=== PATIENT | female | born 1940 | race Caucasian/White ===

== ENCOUNTER 2023-04-16 14:19 | Emergency (ER) | payer MEDICARE, BC, SELFPAY ==
[2023-04-16] VITALS (11 sets, daily range): BP systolic 131–177; BP diastolic 82–93; PULSE 69–78; RESP 20; TEMP 36.7; O2SAT 94–98; BMI 33.3
--- NOTE | 2023-04-16 16:12 | ED_ITS ---
HPI - General Adult General Time Seen by Provider: 16:13 Date Seen: 04/16/23 Chief complaint: Chest Pain Stated complaint: Chest discomfort Time Seen by Provider: 04/16/23 16:04 History of Present Illness HPI narrative: This is a very pleasant 82-year-old female with a past medical history of hypertension, history of melanoma, history of basal cell carcinoma, distant history of breast cancer, who presents to the ER today with concern for chest pain. She has actually been having chest pain and mild shortness of breath that is per been present off and on for a couple of months, probably since late January. She had seen her primary care provider at [facility] on February 28. They ordered an outpatient stress test and an outpatient echo. Echo was finally done last week on April 13. TTE 04/13/23 Final Impressions: 1. Technically limited exam. 2. Normal LV size, normal wall thickness, normal global systolic function with an estimated EF of 65 - 70%. 3. Right ventricular cavity size is normal, global systolic RV function is normal. She is scheduled to have a Lexiscan stress test on Sunday, 2 days from now. She notes that she has the chest pains off and on. It is only a mild discomfort in she does not know if it is severe enough to worry about. It comes and goes. No clear pattern. It is not related to any exertion, activity, position, food intake, stress, or any other clear trigger. It happens once every couple of days. She had an episode last night that began roughly 7:00 p.m. and lasted until she took a Xanax and went to bed at 10:00 p.m.. She called the clinic this morning to find out whether not she should still follow through with her stress test and they told her to come to the ER because she was having chest pain. She says the pain is not really worse, longer, more frequent, or changing lately. She is not sure if she needs to investigate it further or not. She does have some occasional palpitations. Sometimes they occur during the chest pain. She did have some palpitations last night. No other symptoms. No nausea. No back pain. The pain did not radiate to her jaw or down her arm. No swelling in her legs. No fever or cough. She does have some mild shortness of breath. Related Data Home Medications Medication Instructions Recorded Confirmed alprazolam 0.25 mg tablet 0.25 mg PO BID PRN 04/16/23 04/16/23 benazepril 40 mg tablet 40 mg PO DAILY 04/16/23 04/16/23 fluticasone propionate 50 1 spray intranasal DAILY 04/16/23 04/16/23 mcg/actuation nasal spray,suspension glimepiride 1 mg tablet 1 mg PO DAILY 04/16/23 04/16/23 metformin 500 mg tablet,extended 1,000 mg PO BID 04/16/23 04/16/23 release 24 hr nitroglycerin 0.4 mg sublingual mg sublingual 04/16/23 tablet omeprazole 40 mg capsule,delayed 40 mg PO BID 04/16/23 04/16/23 release primidone 50 mg tablet mg PO 04/16/23 propranolol 10 mg tablet 10 - 20 mg PO PRN 04/16/23 04/16/23 rosuvastatin 40 mg tablet 40 mg PO QPM 04/16/23 04/16/23 Allergies Allergy/AdvReac Type Severity Reaction Status Date / Time Sulfa (Sulfonamide Allergy Verified 04/16/23 14:36 Antibiotics) [facility] Social History Non-prescribed substance use: denies use Exam Narrative: Exam Narrative: Constitutional: Appears well-developed and well-nourished. Alert. Conversant. Non toxic. HENT: Head: Atraumatic. Nose: Nose normal. Mouth/Throat: Oral mucosa is clear and moist. no trismus. Pharynx normal. Tonsils symmetric. No tonsillar enlargement, erythema, or exudate. Eyes: Conjunctivae normal. EOM normal. Pupils equal, round, and reactive to light. No scleral icterus. Neck: Normal range of motion. Neck supple. No tracheal deviation present. No JVD Cardiovascular: Normal rate, regular rhythm. No gallop. No friction rub. No murmur heard. Symmetric radial and PT artery pulses Pulmonary/Chest: Effort normal. No stridor. No respiratory distress. No wheezes. No rales. No rhonchi . No tenderness. Abdominal: Soft. Bowel sounds normal. No distension. No mass. No tenderness. No rebound. No guarding. Musculoskeletal: RUE: Normal range of motion. No tenderness. No deformity LUE: Normal range of motion. No tenderness. No deformity RLE: Normal range of motion. No edema. No tenderness. No deformity LLE: Normal range of motion. No edema. No tenderness. No deformity Neurological: Alert and oriented to person, place, and time. Normal strength. CN II-VII intact. No sensory deficit. GCS eye subscore is 4. GCS verbal subscore is 5. GCS motor subscore is 6. Normal coordination Skin: Skin is warm and dry. No rash noted. No pallor. Normal capillary refill. Psychiatric: Normal mood. Normal affect. Const: Vital Signs, click to edit/add: Vital Signs - 24 hr 04/16/23 14:38 04/16/23 16:51 04/16/23 16:52 Temperature 98.1 F Pulse Rate 72 77 Pulse Rate [Right Pulse Oximeter] 69 Respiratory Rate 20 Blood Pressure 131/84 Blood Pressure [Ri ght Upper Arm] 136/82 Pulse Oximetry 94 96 96 04/16/23 17:00 04/16/23 17:15 Temperature Pulse Rate 73 78 Pulse Rate [Right Pulse Oximeter] Respiratory Rate Blood Pressure Blood Pressure [Ri ght Upper Arm] Pulse Oximetry 98 98 Course Vital Signs Vital signs: Initial Vital Signs Temperature 98.1 F 04/16/23 14:38 Temperature Source Temporal Artery Scan 04/16/23 14:38 Pulse Rate 69 04/16/23 14:38 Respiratory Rate 20 04/16/23 14:38 Blood Pressure 136/82 04/16/23 14:38 Blood Pressure Mean 100 04/16/23 14:38 Blood Pressure Position Sitting 04/16/23 14:38 Pulse Oximetry 94 04/16/23 14:38 Vital Signs Temperature 98.1 F 04/16/23 14:38 Pulse Rate 69 04/16/23 14:38 Respiratory Rate 20 04/16/23 14:38 Blood Pressure 136/82 04/16/23 14:38 Pulse Oximetry 94 04/16/23 14:38 Temperature 98.1 F 04/16/23 14:38 Pulse Rate 78 04/16/23 17:15 Respiratory Rate 20 04/16/23 14:38 Blood Pressure 131/84 04/16/23 16:51 Pulse Oximetry 98 04/16/23 17:15 Medical Decision Making MDM Narrative Medical decision making narrative: This patient presents to the ER today for evaluation of chest pain off and on for a couple months. Differential was broad. No evidence of palpitations, syncope or other cardiac dysrhythmia. We considered possible ACS, however workup with EKG and troponin is negative. Given time since onset of symptoms, I do not think the patient needs to be admitted for further sets of enzymes. She is scheduled to have an outpatient stress test 2 days from now. I do think it is important for her to get that stress test done to look for possible unstable angina. However given history of intermittent chest pain for months, not worsening in frequency or severity or duration lately, I do not think she has active unstable angina requiring heparin or hospitalization. Troponin is negative. Will start the patient on baby aspirin once per day until after she has normal stress test results. She should doctor primary care about whether not she should be on long-term low-dose aspirin. EKG shows no evidence for pericarditis. Clinical presentation not suggestive of myocarditis. The patient has no ripping or tearing pain through to the back and has symmetric pulses on exam, no other acute neuro findings so I doubt aortic dissection. Risk of radiation and contrast exposure would outweigh the benefit of CT angiogram. We considered PE for this patient. d dimer is normal. No wheezing or bronchospasm to suggest COPD/asthma. No peripheral edema, pulmonary edema on exam, orthopnea or other clear evidence for CHF. Recent echo indicated structurally normal heart and normal EF. No signs of chest wall cellulitis, shingles, injury. With reasonable clinical confidence, I think the patient is safe for outpatient follow up. Discussed return precautions. Questions answered. Patient voices comfort with the plan. Lab Data Labs: Lab Results 04/16/23 Range/Units 16:46 WBC 3.99 L (4.50-11.00) K/uL RBC 3.79 L (4.00-5.20) m/uL Hgb 11.9 L (12.0-16.0) gm/dL Hct 36.7 (33.0-51.0) % MCV 97 (80-100) fL MCH 31 (26-34) pg MCHC 32 (32-36) gm/dL RDW Coeff of Aimee 12.6 (11.5-15.5) % Plt Count 217 (140-440) K/uL Neut % (Auto) 51.1 (42.0-72.0) % Lymph % (Auto) 34.1 (20-44) % [place] % (Auto) 11.5 H (0.0-11.0) % Eos % (Auto) 2.5 (0.0-7.0) % Baso % (Auto) 0.8 (0.0-3.0) % Neut # (Auto) 2.00 (1.7-7.0) K/uL Lymph # (Auto) 1.40 (0.90-2.90) K/uL [place] # (Auto) 0.50 (0.00-0.90) K/UL Eos # (Auto) 0.10 (0.00-0.50) K/uL Baso # (Auto) 0.00 (0.00-0.30) K/uL Abs Immat Gran (auto) 0.00 (0.00-0.30) K/uL Imm/Tot Granulo (auto) 0.0 % D-Dimer Quant (PE/DVT) 0.47 (0.00-0.50) ug/ml Sodium 140 (135-149) mmol/L Potassium 4.2 (3.6-5.1) mmol/L Chloride 103 (96-114) mmol/L Carbon Dioxide 26 (20-32) mmol/L Anion Gap 11 (7-15) mEq/L BUN 13 (7-30) mg/dL Creatinine 1.2 (0.5-1.5) mg/dL Estimated Creat Clear 33.65 Estimated GFR 46 ml/min Glucose 126 H (60-115) mg/dL Calcium 9.0 (8.4-10.6) mg/dL Troponin I < 0.01 L (0.01-0.04) ng/mL ECG Data Attestation: I personally reviewed and interpreted this ECG as follows: Interpretation: Normal sinus rhythm . Rate 78 PA the 0.16 QRS axis normal axis. No pathologic Q-waves. ST segment/T wave: No ST segment elevation or depression. QTc: 433 EKG 2 Normal sinus rhythm, with 1 Pac. Rate 81. PA 160 QRS axis normal axis ST segment/T wave: No ST segment elevation or depression QTc: 448 Discharge Plan Discharge Clinical Impression: Palpitation, Atrial contractions, premature, Chest pain Patient Disposition: Home, Self-Care Condition: Stable Instructions: Chest Pain (DC) Additional Instructions: As we discussed, it is safe for you to follow-up for your stress test on Sunday. However if you have worsening pain, worsening trouble breathing, or any worsening symptoms, please come back to the ER right away to be rechecked. Please start taking baby aspirin (81 mg) once per day until you have normal stress test results. Talk to your regular doctor about whether not to ED to be on long-term baby aspirin. If you continue to have palpitations, talk with your doctor and have them arrange an at-home heart monitor to look for possible arrhythmias. On your EKG today, we can see that you did have 1 extra heartbeat called a ?premature atrial contraction?. This PAC is not a dangerous rhythm . It does not require any treatment. Prescriptions: No Action primidone 50 mg tablet PO omeprazole 40 mg capsule,delayed release(DR/EC) 40 mg PO BID glimepiride 1 mg tablet 1 mg PO DAILY propranolol 10 mg tablet 10 - 20 mg PO PRN alprazolam 0.25 mg tablet 0.25 mg PO BID PRN nitroglycerin 0.4 mg tablet, sublingual sublingual benazepril 40 mg tablet 40 mg PO DAILY fluticasone propionate 50 mcg/actuation spray,suspension 1 spray INTRANASAL DAILY metformin 500 mg tablet extended release 24 hr 1,000 mg PO BID rosuvastatin 40 mg tablet 40 mg PO QPM Follow Up/Referrals: Deb Harris PA-C [Primary Care Provider] - Stand Alone Forms: [employer] Info Instructions
[2023-04-16] MEDS: ASPIRIN 81 MG TAB.CHEW 162 MG PO (16:45)
[2023-04-16] MEDS: NITROGLYCERIN 0.4 MG TAB.SUBL SUBLINGUAL (16:45)
[2023-04-16 16:52] LABS: Basophils Percent Auto 0.8 % (0.0-3.0); Eosinophils Percent Auto 2.5 % (0.0-7.0); Hematocrit 36.7 % (33.0-51.0); Hemoglobin* 11.9 gm/dL (12.0-16.0); Lymphocytes Percent Auto 34.1 % (20-44); Mean Corpuscular HGB Conc 32 gm/dL (32-36); Mean Corpuscular Hemoglobin 31 pg (26-34); Mean Corpuscular Volume 97 fL (80-100); Monocytes Percent Auto 11.5 % (0.0-11.0); Neutrophils Percent Auto 51.1 % (42.0-72.0); Platelet Count* 217 K/uL (140-440); RDW Coefficient of Variation % 12.6 % (11.5-15.5); Red Blood Count 3.79 m/uL (4.00-5.20); White Blood Count* 3.99 K/uL (4.50-11.00)
[2023-04-16 16:53] LABS: Slide Review Reflex No
[2023-04-16 17:05] LABS: Chloride* 103 mmol/L (96-114); Potassium* 4.2 mmol/L (3.6-5.1); Sodium* 140 mmol/L (135-149)
[2023-04-16 17:07] LABS: Creatinine* 1.2 mg/dL (0.5-1.5); Est. Creatinine Clearance* 33.65; Estimated Glomerular Filt Rate 46 ml/min
[2023-04-16 17:08] LABS: Anion Gap 11 mEq/L (7-15); Blood Urea Nitrogen* 13 mg/dL (7-30); Carbon Dioxide* 26 mmol/L (20-32); D Dimer Quantitative* 0.47 ug/ml (0.00-0.50); Glucose* 126 mg/dL (60-115)
[2023-04-16 17:20] LABS: Troponin I* < 0.01 ng/mL (0.01-0.04)
== END 2023-04-16 18:44 | disposition home or self-care (01) ==
PROVIDERS: Emergency Provider Emergency Medicine; PCP Physician Assistant Medical
DX: R07.9 Chest pain, unspecified (principal); R00.2 Palpitations; I49.1 Atrial premature depolarization
CPT/HCPCS: 36415; 80048; 84484; 85025; 85379; 93005; 99284; A9270

== ENCOUNTER 2023-06-08 16:17 | Outpatient (CLI) | payer MEDICARE, BC, SELFPAY | END 2023-06-08 16:18 | disposition home or self-care (01) | LOC: NFLDREF 06-11 07:33 | PROVIDERS: PCP Physician Assistant Medical; Referring Provider Physician Assistant Medical; Visit Provider Physician Assistant | DX: R30.0 Dysuria (principal); N39.0 Urinary tract infection, site not specified | CPT/HCPCS: 87086 ==

== ENCOUNTER 2024-06-14 16:11 | Emergency (ER) | payer MEDICARE, BC, SELFPAY ==
[2024-06-14 16:23] VITALS: BP 174/73; PULSE 81; RESP 20; TEMP 36.1; O2SAT 97; BMI 34.3
--- NOTE | 2024-06-14 16:35 | CRLHL7_ITS ---
For Patients: As a result of the Cures Act, medical imaging exams and procedure reports are released immediately into your electronic medical record. You may view this report before your referring provider. If you have questions, please contact your health care provider. INDICATION: Low back pain. TECHNIQUE: Lumbar spine 3 view. COMPARISON: None. FINDINGS: Bones: Alignment is normal. No displaced fractures or significant bone lesions. Joints: Multilevel degenerative disc disease and facet arthropathy. Soft tissues: Unremarkable. Dictated by Emerson Lopez MD @ 06/14/2024 5:18:51 PM (Electronically Signed)
--- NOTE | 2024-06-14 16:36 | ED.BACK ---
HPI - Back Pain/Injury General Chief Complaint: Back Injury/Pain Stated Complaint: Lower back pain Time Seen by Provider: 06/14/24 16:29 History of Present Illness HPI Narrative: Patient is 83-year-old woman who has had 1 week of low back pain. She has not had any recent injuries. She was seen in urgent care this week placed on Flexeril plus prednisone and her symptoms have persisted. She has a history of low back pain that resolved on its own with physical therapy. Physical therapy has been set up. She has not had any imaging during this event. She has no bowel or bladder symptoms no fevers no chills no weakness. Related Data Home Medications ?Medication ?Instructions ?Recorded ?Confirmed alprazolam 0.25 mg tablet 0.25 mg PO BID PRN 04/16/23 06/14/24 benazepril 40 mg tablet 40 mg PO DAILY 04/16/23 06/14/24 fluticasone propionate 50 1 spray intranasal DAILY 04/16/23 06/08/23 mcg/actuation nasal spray,suspension glimepiride 1 mg tablet 1 mg PO DAILY 04/16/23 06/14/24 metformin 500 mg tablet,extended 1,000 mg PO BID 04/16/23 06/14/24 release 24 hr omeprazole 40 mg capsule,delayed 40 mg PO BID 04/16/23 06/14/24 release primidone 50 mg tablet mg PO 04/16/23 06/08/23 propranolol 10 mg tablet 10 - 20 mg PO PRN 04/16/23 06/14/24 rosuvastatin 40 mg tablet 40 mg PO QPM 04/16/23 06/14/24 nitroglycerin 0.4 mg sublingual mg sublingual PRN 06/08/23 06/08/23 tablet Allergies Allergy/AdvReac Type Severity Reaction Status Date / Time Sulfa (Sulfonamide Allergy Verified 06/14/24 16:29 Antibiotics) Review of Systems Status of ROS: Reports: 10 or more systems reviewed and unremarkable except as noted in History and below [facility] Social History Non-prescribed substance use: denies use Exam Narrative: Exam Narrative: EXAM GENERAL: Patient appears comfortable and well. EYES: No scleral icterus. LYMPH: No supraclavicular or cervical lymphadenopathy. SKIN: Visible skin seen during exam normal or with benign process only. EXT: No dependent lower extremity pedal edema. HEART: Regular rate and rhythm with no murmurs, rubs, or gallops. LUNGS: Clear to auscultation bilaterally with no crackles or wheezes. ABD: Soft, non tender, non distended. PSYCH: Good eye contact, speech is not pressured. Musculoskeletal: Normal range of motion of the lumbar spine no other palpable abnormalities. Const: Vital Signs, click to edit/add: Vital Signs - 24 hr 06/14/24 16:23 Temperature 97 F L Pulse Rate [Pulse Oximeter] 81 Respiratory Rate 20 [facility] 174/73 H Pulse Oximetry 97 Oxygen Delivery Me thod Room Air Course Course ED Course: Patient seen and examined. 30 mg of IM Toradol given x-ray of the lumbar spine pending. Vital Signs Vital signs: Initial Vital Signs Temperature 97 F L 06/14/24 16:23 Temperature Source Temporal Artery Scan 06/14/24 16:23 Pulse Rate 81 06/14/24 16:23 Pulse Rhythm Regular 06/14/24 16:23 Respiratory Rate 20 06/14/24 16:23 Blood Pressure 174/73 H 06/14/24 16:23 Blood Pressure Mean 106 H 06/14/24 16:23 Pulse Oximetry 97 06/14/24 16:23 Oxygen Delivery Method Room Air 06/14/24 16:23 Vital Signs Temperature 97 F L 06/14/24 16:23 Pulse Rate 81 06/14/24 16:23 Respiratory Rate 20 06/14/24 16:23 Blood Pressure 174/73 H 06/14/24 16:23 Pulse Oximetry 97 06/14/24 16:23 Oxygen Delivery Method Room Air 06/14/24 16:23 Temperature 97 F L 06/14/24 16:23 Pulse Rate 81 06/14/24 16:23 Respiratory Rate 20 06/14/24 16:23 Blood Pressure 174/73 H 06/14/24 16:23 Pulse Oximetry 97 06/14/24 16:23 Oxygen Delivery Method Room Air 06/14/24 16:23 Medications Administered Medications: Generic Name Dose Route Start Last Admin Trade Name Freq PRN Reason Stop Dose Admin Ketorolac Tromethamine 30 mg 06/14/24 17:03 06/14/24 17:12 Ketorolac 30 Mg/Ml Inj IM 06/14/24 17:04 Not Given ONCE ONE Discontinued Medications Generic Name Dose Route Start Last Admin Trade Name Reinaldo PRN Reason Stop Dose Admin Ketorolac Tromethamine 30 mg 06/14/24 16:56 06/14/24 17:02 Ketorolac 30 Mg/Ml Inj IM 06/14/24 16:57 30 mg ONCE ONE Administration MDM - Back Pain/Injury MDM Narrative Medical decision making narrative: Patient presents with low back pain which is been treated as an outpatient with prednisone and Flexeril. Patient does not like the Flexeril and would like something different for pain. X-ray series is unremarkable. I did give her 30 mg of IM Toradol. I at this time after careful exam and review of her imaging have elected to treat her with Vicodin 1-2 every 4-6 as needed in addition to the remainder of her steroid course. She does have outpatient physical therapy schedule. Will continue symptomatic treatment as well with follow-up with primary care as needed. Discharge Plan Discharge Clinical Impression: Low back pain Patient Disposition: Home, Self-Care Condition: Stable Instructions: Acute Low Back Pain (ED) Additional Instructions: STOP Flexeril Start Vicodin as directed Tylenol Motrin Rest Ice Physical therapy as arranged Follow-up with your doctor as needed. Activity Level: No Restrictions Discharge Diet: Regular Prescriptions: No Action primidone 50 mg tablet PO omeprazole 40 mg capsule,delayed release(DR/EC) 40 mg PO BID glimepiride 1 mg tablet 1 mg PO DAILY propranolol 10 mg tablet 10 - 20 mg PO PRN alprazolam 0.25 mg tablet 0.25 mg PO BID PRN benazepril 40 mg tablet 40 mg PO DAILY fluticasone propionate 50 mcg/actuation spray,suspension 1 spray INTRANASAL DAILY metformin 500 mg tablet extended release 24 hr 1,000 mg PO BID rosuvastatin 40 mg tablet 40 mg PO QPM nitroglycerin 0.4 mg tablet, sublingual sublingual PRN Follow Up/Referrals: Deb Harris PA-C [Primary Care Provider] - Stand Alone Forms: [facility] Info Instructions
[2024-06-14] MEDS: KETOROLAC 30 MG/ML inj IM (17:02)
[2024-06-14 17:40] VITALS: BP 154/82; PULSE 75; RESP 20; O2SAT 99
--- NOTE | 2024-06-14 17:49 | ED.NURSE ---
Pt D/C. neighbor to give her ride home. Verbal acknowledgment of instructions. Insta med script given to pt
== END 2024-06-14 17:41 | disposition home or self-care (01) ==
PROVIDERS: Emergency Provider Internal Medicine; PCP Physician Assistant Medical
DX: M54.50 Low back pain, unspecified (principal)
CPT/HCPCS: 72100; 96372; 99283; J1885

== ENCOUNTER 2024-06-16 08:39 | Observation (INO) | payer MEDICARE, BC, SELFPAY ==
[2024-06-16 08:52] VITALS: BP 133/118; PULSE 93; RESP 18; TEMP 36.1; O2SAT 99; BMI 34.3
--- NOTE | 2024-06-16 09:24 | ED.BACK ---
HPI - Back Pain/Injury General Time Seen by Provider: : Date Seen: 06/16/24 Chief Complaint: Back Injury/Pain Stated Complaint: hip/back pain Time Seen by Provider: 06/16/24 09:24 Source: patient and family Mode of arrival: wheelchair Limitations: no limitations History of Present Illness HPI Narrative: Joan is an 83-year-old female with a history of hypertension, history of melanoma, history of basal cell carcinoma, distant history of breast cancer, who presents to the ER today with increasing and ongoing back pain. Patient notes the onset of right sided low back pain with radiation into the right hip and to the leg on SundayJune 11. She notes a similar instance of this pain last spring which responded very well to physical therapy. She is normally a very active person. Unfortunately she has had increasing pain and was seen at the [facility] on June 12 at which time she was put on Flexeril and prednisone. She notes increasing pain and came into the emergency room on SundayJune 14 at which time x-rays of her back showed arthritic changes. She was discontinued off of Flexeril, given a dose of Toradol which seemed to help and started on Dalton 5/325. Patient notes that she had been taking Dalton 2 tablets every 4 hours but has run out of the tablets now. She notes that throughout the night she was on the computer trying to get into her primary Deb [facility] at the [facility] and even tried to talk to the triage nurse and had no luck trying to be seen. Thus, she comes to the emergency room. She has not had any bowel or bladder control issues. The pain starts in her low back, radiates to the hip and down the lateral aspect of the thigh stopping at the knee. Related Data Home Medications ?Medication ?Instructions ?Recorded ?Confirmed alprazolam 0.25 mg tablet 0.25 mg PO BID PRN 04/16/23 06/16/24 benazepril 40 mg tablet 40 mg PO DAILY 04/16/23 06/16/24 fluticasone propionate 50 1 spray intranasal DAILY 04/16/23 06/16/24 mcg/actuation nasal spray,suspension glimepiride 1 mg tablet 1 mg PO DAILY 04/16/23 06/16/24 metformin 500 mg tablet,extended 1,000 mg PO BID 04/16/23 06/16/24 release 24 hr omeprazole 40 mg capsule,delayed 40 mg PO BID 04/16/23 06/16/24 release primidone 50 mg tablet 100 mg PO TID 04/16/23 06/16/24 propranolol 10 mg tablet 10 - 20 mg PO PRN 04/16/23 06/16/24 rosuvastatin 40 mg tablet 40 mg PO HS 04/16/23 06/16/24 nitroglycerin 0.4 mg sublingual 0.4 mg sublingual Q5M PRN 06/08/23 06/16/24 tablet cyanocobalamin (vitamin B-12) 1,000 mcg IM Q28D 06/16/24 06/16/24 1,000 mcg/mL injection solution (Dodex) propranolol 160 mg capsule,24 160 mg PO DAILY 06/16/24 06/16/24 hr,extended release Allergies Allergy/AdvReac Type Severity Reaction Status Date / Time Sulfa (Sulfonamide Allergy Verified 06/16/24 09:03 Antibiotics) Review of Systems Status of ROS: Reports: 10 or more systems reviewed and unremarkable except as noted in History and below Const: Denies: fever or chills ENMT: Denies: neck pain Cardio: Denies: chest pain or shortness of breath with exertion Resp: Denies: shortness of breath or cough GI: Denies: abdominal pain or vomiting Musculo: Denies: neck pain Neuro: Reports: weakness in extremities PFSH PFSH Social History What is your current living situation?: I presently have a place to live Problems where you live: no known problems Problems where you live details: N/A In the past 12 months, utilities in danger of being shut off: no In the past 12 mos, have been you worried that your food would run out before you had money to buy more?: never true In the past 12 mos, the food you bought just didn't last and you didn't have money to buy more?: never true Highest level of school completed/degree received: Associate degree: occupational, technical, vocational program Smoking Status: Former smoker Do you use any of these nicotine containing products: None How often do you have a drink containing alcohol: monthly or less How often do you have six or more drinks on one occasion: Never AUDIT-C Alcohol total score: 1 Non-prescribed substance use: denies use How often does anyone, including family, friends and others, physically hurt you: never How often does anyone, including family, friends and others, insult or talk down to you: never How often does anyone, including family, friends and others, threaten you with harm: never How often does anyone, including family, friends and others, scream or curse at you: never service: No Exam Narrative: Exam Narrative: Patient initially seen by myself with mild distress, alert and oriented. Breathing without difficulty. She needs to use the restroom and so I return later. Unfortunately she has marked increased pain and muscular spasm in her low back. She is clear in significant distress. I do order medications 8 mg of IM morphine and this seems to help significantly. I then return for further exam. Alert and oriented. No acute distress. Heart with regular rate and rhythm and lungs are clear. Abdomen soft. Over no pain with palpation over right thigh. No unusual lower extremity edema. Patient now has full flexion and extension at the ankles and great toes. Sensation is intact. Subjective altered sensation at the knee. Const: Vital Signs, click to edit/add: Vital Signs - 24 hr 06/16/24 08:52 06/16/24 11:05 Temperature 96.9 F L Pulse Rate [Pulse Oximeter] 93 64 Respiratory Rate 18 18 Blood Pressure [Le ft Upper Arm] 133/118 H 191/94 H Pulse Oximetry 99 96 Oxygen Delivery Me thod Room Air Room Air Documenting provider has reviewed patient's vital signs: yes Course Course ED Course: Differential diagnosis includes but is not limited to compression fracture, disc protrusion with radiculopathy, musculoskeletal discomfort, I was called back into the room is patient had gone to the bathroom and when she returned she was screaming in pain. She was quite shaky as well. She did not yet have an IV in place and thus we gave her morphine 8 mg IM with her consent. This helped quite a bit. An IV was placed and she was given Zofran 4 mg IV. Blood was taken for a CBC, comprehensive panel, CRP. Ordered urinalysis as well as an MRI of her lumbar spine which I am told should be done shortly after noon. Reevaluation(s) Reevaluation #1: Patient noted to do very well after IM morphine. Currently awaiting results. White count is normal. Reevaluation #2: Attempted ambulation with patient and walker in she has quite a bit of increased discomfort. Consultations Consultation #1: I consulted with Dr. Salvador, sports broadcaster. He will schedule Joan for injection at the L2, L3 for areas on the right. No further steroids at this time. Vital Signs Vital signs: Initial Vital Signs Temperature 96.9 F L 06/16/24 08:52 Temperature Source Temporal Artery Scan 06/16/24 08:52 Pulse Rate 93 06/16/24 08:52 Respiratory Rate 18 06/16/24 08:52 Blood Pressure 133/118 H 06/16/24 08:52 Blood Pressure Mean 123 H 06/16/24 08:52 Blood Pressure Position Supine 06/16/24 08:52 Pulse Oximetry 99 06/16/24 08:52 Oxygen Delivery Method Room Air 06/16/24 08:52 Vital Signs Temperature 96.9 F L 06/16/24 08:52 Pulse Rate 93 06/16/24 08:52 Respiratory Rate 18 06/16/24 08:52 Blood Pressure 133/118 H 06/16/24 08:52 Pulse Oximetry 99 06/16/24 08:52 Oxygen Delivery Method Room Air 06/16/24 08:52 Temperature 97.8 F 06/16/24 16:58 Pulse Rate 69 06/16/24 16:58 Respiratory Rate 16 06/16/24 16:58 Blood Pressure 177/82 H 06/16/24 16:58 Pulse Oximetry 94 06/16/24 16:58 Oxygen Delivery Method Room Air 06/16/24 16:58 Medications Administered Medications: Generic Name Dose Route Start Last Admin Trade Name Reinaldo PRN Reason Stop Dose Admin Acetaminophen 1,000 mg 06/16/24 17:00 06/16/24 17:26 Acetaminophen 500 Mg Tablet PO 1,000 mg Q8H CARA Administration Gabapentin 200 mg 06/16/24 18:00 06/16/24 17:33 Gabapentin 100 Mg Capsule PO 200 mg Q8H CARA Administration Insulin Aspart 0 unit 06/16/24 18:00 06/16/24 17:28 Insulin Aspart 100 Unit/Ml SUBCUT Not Given TIDWM CARA Protocol Primidone 100 mg 06/16/24 18:00 06/16/24 17:46 Primidone 50 Mg Tablet PO 100 mg Q8H CARA Administration Discontinued Medications Generic Name Dose Route Start Last Admin Trade Name Reinaldo PRN Reason Stop Dose Admin Morphine Sulfate 8 mg 06/16/24 09:57 06/16/24 10:15 Morphine 10 Mg/Ml Inj IM 06/16/24 09:58 8 mg ONCE ONE Administration Ondansetron HCl 4 mg 06/16/24 09:57 06/16/24 10:20 Ondansetron 2 Mg/Ml Inj IVP 06/16/24 09:58 4 mg ONCE ONE Administration MDM - Back Pain/Injury MDM Narrative Medical decision making narrative: 1. Lumbar radiculitis-L3 nerve appears to have irritation based on MRI. Patient much improved with morphine but still having difficulty ambulating. Will admit patient to our hospital for pain control. Plan is to have an injection tomorrow with agricultural consultant Dr. Salvador at 1330 hours. Based on his advice no further steroids needed at this time. Not currently on blood thinners. 2. Hyperglycemia-likely consequence of pain as well as steroid use. Blood sugar 297. 3. Hypertension-likely consequence of pain. Will continue to monitor 4. Disposition-admission to the floor at this time under the care of Dr. Lofton Medical Records Attestation: I reviewed the patient's medical records. Lab Data Attestation: I reviewed the patient's lab results. Labs: Lab Results 06/16/24 Range/Units 10:09 WBC 8.82 (4.50-11.00) K/uL RBC 4.15 (4.00-5.20) m/uL Hgb 13.1 (12.0-16.0) gm/dL Hct 39.0 (33.0-51.0) % MCV 94 (80-100) fL MCH 32 (26-34) pg MCHC 34 (32-36) gm/dL RDW Coeff of Aimee 13.1 (11.5-15.5) % Plt Count 246 (140-440) K/uL Neut % (Auto) 73.0 H (42.0-72.0) % Lymph % (Auto) 20.4 (20-44) % Beaver % (Auto) 5.4 (0.0-11.0) % Eos % (Auto) 0.7 (0.0-7.0) % Baso % (Auto) 0.3 (0.0-3.0) % Neut # (Auto) 6.40 (1.7-7.0) K/uL Lymph # (Auto) 1.80 (0.90-2.90) K/uL Beaver # (Auto) 0.50 (0.00-0.90) K/UL Eos # (Auto) 0.06 (0.00-0.50) K/uL Baso # (Auto) 0.03 (0.00-0.30) K/uL Abs Immat Gran (auto) 0.02 (0.00-0.30) K/uL Imm/Tot Granulo (auto) 0.2 % Sodium 134 L (135-149) mmol/L Potassium 4.2 (3.6-5.1) mmol/L Chloride 99 (96-114) mmol/L Carbon Dioxide 21 (20-32) mmol/L Anion Gap 14 (7-15) mEq/L BUN 20 (7-30) mg/dL Creatinine 1.0 (0.5-1.5) mg/dL Estimated Creat Clear 38.10 Estimated GFR 57 ml/min Glucose 297 H (60-115) mg/dL Calcium 9.8 (8.4-10.6) mg/dL Total Bilirubin 0.6 (0.1-1.5) mg/dL AST 20 (12-35) U/L ALT 20 (4-35) U/L Alkaline Phosphatase 86 (40-150) U/L C-Reactive Protein 0.5 (0.5-1.0) mg/dL Total Protein 7.5 (6.0-8.3) g/dL Albumin 4.6 (3.3-5.0) g/dL Imaging Data MRI lumbar spine: Attestation: I have reviewed the pertinent imaging results. Radiologist's impression: There are 5 lumbar type vertebral segments identified. The vertebral body heights are maintained without evidence of fracture. There is no discrete T1 hypointense marrow infiltrating process. The conus medullaris terminates at L1-2, normal. T12-L1: Disc degeneration with moderate posterior endplate fatty marrow change (Modic type 2). Minimal disc bulge without spinal canal or neural foraminal narrowing. Mild facet arthropathy. L1-2: Disc degeneration, with moderate apposing endplate combination fatty and edematous marrow change (combination of Modic type 1 and type 2). Disc bulge results in mild spinal canal narrowing. Left foraminal disc protrusion combined with facet arthropathy resulting in mild to moderate left neural foraminal narrowing. Mild right neural foraminal narrowing. Moderate facet arthropathy. L2-3: Disc degeneration, with mild opposing endplate fatty marrow change (Modic type 2). Disc bulge with superimposed right subarticular disc protrusion. There is mild overall spinal canal with moderate right lateral recess narrowing. Encroachment upon the descending right L3 nerves. Moderate right and mild left neural foraminal narrowing. L3-4: Disc degeneration. Disc bulge combined with facet arthropathy results in moderate spinal canal narrowing. [id number] neural foraminal narrowing. Moderate facet arthropathy. L4-5: Grade 1 anterolisthesis. Uncovering the disc combined with facet arthropathy resulting in mild to moderate overall spinal canal narrowing with moderate right lateral recess narrowing. Encroachment upon the descending right L5 nerves. Moderate right and mild left neural foraminal narrowing. Severe facet arthropathy. L5-S1: Disc degeneration with minimal spinal canal narrowing. Mild neural foraminal narrowing. Severe facet arthropathy. Mild sacroiliac joint osteoarthritis. Impression: 1. At L2-3, right subarticular disc protrusion resulting in moderate lateral recess narrowing encroaching upon the descending right L3 nerves. 2. At L3-4, moderate spinal canal stenosis. 3. At L4-5, mild to moderate spinal canal with moderate right lateral recess narrowing. Encroachment upon the descending right L5 nerves. 4. Moderate to severe multilevel facet arthropathy. Hip x-ray: Attestation: I have reviewed the pertinent imaging results. My impression: No obvious fracture Radiologist's impression: No evident acute displaced fracture. Mild degenerative change of the hips. Moderate degenerative changes of the sacroiliac joints. Mild degenerative change of the pubic symphysis. Partially imaged degenerative change of the lumbosacral spine. Lumbosacral transitional anatomy. IMPRESSION: 1. No evident acute displaced fracture. 2. Mild degenerative change of the hips. Discharge Plan Discharge Clinical Impression: Lumbar radiculitis Patient Disposition: Admitted As Observation Condition: Improved
--- NOTE | 2024-06-16 09:57 | CRLHL7_ITS ---
For Patients: As a result of the Century Cures Act, medical imaging exams and procedure reports are released immediately into your electronic medical record. You may view this report before your referring provider. If you have questions, please contact your health care provider. Indication: Back pain. Technique: Multiplanar, multisequence MRI of the lumbar spine was performed without intravenous contrast. Comparison: Lumbar spine radiographs 06/14/2024. Findings: There are 5 lumbar type vertebral segments identified. The vertebral body heights are maintained without evidence of fracture. There is no discrete T1 hypointense marrow infiltrating process. The conus medullaris terminates at L1-2, normal. T12-L1: Disc degeneration with moderate posterior endplate fatty marrow change (Modic type 2). Minimal disc bulge without spinal canal or neural foraminal narrowing. Mild facet arthropathy. L1-2: Disc degeneration, with moderate apposing endplate combination fatty and edematous marrow change (combination of Modic type 1 and type 2). Disc bulge results in mild spinal canal narrowing. Left foraminal disc protrusion combined with facet arthropathy resulting in mild to moderate left neural foraminal narrowing. Mild right neural foraminal narrowing. Moderate facet arthropathy. L2-3: Disc degeneration, with mild opposing endplate fatty marrow change (Modic type 2). Disc bulge with superimposed right subarticular disc protrusion. There is mild overall spinal canal with moderate right lateral recess narrowing. Encroachment upon the descending right L3 nerves. Moderate right and mild left neural foraminal narrowing. L3-4: Disc degeneration. Disc bulge combined with facet arthropathy results in moderate spinal canal narrowing. [id number] neural foraminal narrowing. Moderate facet arthropathy. L4-5: Grade 1 anterolisthesis. Uncovering the disc combined with facet arthropathy resulting in mild to moderate overall spinal canal narrowing with moderate right lateral recess narrowing. Encroachment upon the descending right L5 nerves. Moderate right and mild left neural foraminal narrowing. Severe facet arthropathy. L5-S1: Disc degeneration with minimal spinal canal narrowing. Mild neural foraminal narrowing. Severe facet arthropathy. Mild sacroiliac joint osteoarthritis. Impression: 1. At L2-3, right subarticular disc protrusion resulting in moderate lateral recess narrowing encroaching upon the descending right L3 nerves. 2. At L3-4, moderate spinal canal stenosis. 3. At L4-5, mild to moderate spinal canal with moderate right lateral recess narrowing. Encroachment upon the descending right L5 nerves. 4. Moderate to severe multilevel facet arthropathy. Dictated by Arnoldo Smith MD @ 06/16/2024 1:04:29 PM (Electronically Signed)
[2024-06-16] MEDS: MORPHINE 10 MG/ML inj 8 MG IM (10:15)
[2024-06-16 10:17] LABS: Basophils Absolute Auto 0.03 K/uL (0.00-0.30); Basophils Percent Auto 0.3 % (0.0-3.0); Eosinophils Absolute Auto 0.06 K/uL (0.00-0.50); Eosinophils Percent Auto 0.7 % (0.0-7.0); Hemoglobin* 13.1 gm/dL (12.0-16.0); Immature Granulocytes Abs Auto 0.02 K/uL (0.00-0.30); Immature Granulocytes Pct Auto 0.2 %; Lymphocytes Percent Auto 20.4 % (20-44); Mean Corpuscular HGB Conc 34 gm/dL (32-36); Mean Corpuscular Hemoglobin 32 pg (26-34); Mean Corpuscular Volume 94 fL (80-100); Monocytes Percent Auto 5.4 % (0.0-11.0); Platelet Count* 246 K/uL (140-440); RDW Coefficient of Variation % 13.1 % (11.5-15.5); Red Blood Count 4.15 m/uL (4.00-5.20); White Blood Count* 8.82 K/uL (4.50-11.00)
[2024-06-16] MEDS: ONDANSETRON 2 MG/ML inj 4 MG IVP (10:20)
[2024-06-16 10:27] LABS: Slide Review Reflex No
[2024-06-16 10:37] LABS: Albumin* 4.6 g/dL (3.3-5.0); Chloride* 99 mmol/L (96-114); Sodium* 134 mmol/L (135-149)
[2024-06-16 10:38] LABS: Potassium* 4.2 mmol/L (3.6-5.1)
[2024-06-16 10:40] LABS: Bilirubin Total* 0.6 mg/dL (0.1-1.5); Estimated Glomerular Filt Rate 57 ml/min
[2024-06-16 10:41] LABS: Alanine Aminotransferase* 20 U/L (4-35); Alkaline Phosphatase* 86 U/L (40-150); Anion Gap 14 mEq/L (7-15); Aspartate Amino Transferase* 20 U/L (12-35); Blood Urea Nitrogen* 20 mg/dL (7-30); Calcium* 9.8 mg/dL (8.4-10.6); Carbon Dioxide* 21 mmol/L (20-32); Glucose* 297 mg/dL (60-115); Total Protein* 7.5 g/dL (6.0-8.3)
[2024-06-16 10:43] LABS: C Reactive Protein* 0.5 mg/dL (0.5-1.0)
[2024-06-16 11:05] VITALS: BP 191/94; PULSE 64; RESP 18; O2SAT 96
--- NOTE | 2024-06-16 13:25 | CRLHL7_ITS ---
For Patients: As a result of the Century Cures Act, medical imaging exams and procedure reports are released immediately into your electronic medical record. You may view this report before your referring provider. If you have questions, please contact your health care provider. INDICATION: Right hip pain COMPARISON: None. TECHNIQUE: Single view of the pelvis and two views of the right hip FINDINGS: No evident acute displaced fracture. Mild degenerative change of the hips. Moderate degenerative changes of the sacroiliac joints. Mild degenerative change of the pubic symphysis. Partially imaged degenerative change of the lumbosacral spine. Lumbosacral transitional anatomy. IMPRESSION: 1. No evident acute displaced fracture. 2. Mild degenerative change of the hips. Dictated by Kalpesh Dykes MD @ 06/16/2024 2:19:20 PM (Electronically Signed)
--- NOTE | 2024-06-16 15:25 | ED.NURSE ---
Pt report given to taryn MOHAN.
--- NOTE | 2024-06-16 16:00 | P.IMHP_ITS ---
Hospitalist- H&P: HPI History of Present Illness Date Seen: 06/16/24 Chief complaint: hip/back pain Narrative: Joan Peters is a 83 year old female with a history of DM, hypertension, hld, history of melanoma, history of basal cell carcinoma, distant history of breast cancer, who presents to the ER today with worsening back pain with radiation into the right hip and to the knee started 4-5 days ago. Pain is worse by change of positions ( Walking, standing, and sleeping (rolling over in bed), getting in and out of the car are all very painful). It is improved by sitting still. She has tried home exercises, support belt, ice belt, Aleve, muscle relaxer, prednisone for the pain with no improvement in her symptoms. It is not associated w/ bowel or bladder incontinence or w/ neurologic symptoms including saddle paresthesias. There has not been fevers and chills. Patient mentioned that she has chronic urinary incontinence, that has not got worse recently. MRI lumbar spine: At L2-3, right subarticular disc protrusion resulting in moderate lateral recess narrowing encroaching upon the descending right L3 nerves. At L3-4, moderate spinal canal stenosis. At L4-5, mild to moderate spinal canal with moderate right lateral recess narrowing. Encroachment upon the descending right L5 nerves. Moderate to severe multilevel facet arthropathy. Review of Systems Status of ROS: Reports: 6 or more systems reviewed and unremarkable except as noted in History and below [facility] Social History What is your current living situation?: I presently have a place to live Problems where you live: no known problems Problems where you live details: N/A In the past 12 months, utilities in danger of being shut off: no In the past 12 mos, have been you worried that your food would run out before you had money to buy more?: never true In the past 12 mos, the food you bought just didn't last and you didn't have money to buy more?: never true Highest level of school completed/degree received: Associate degree: occupational, technical, vocational program Smoking Status: Former smoker Do you use any of these nicotine containing products: None How often do you have a drink containing alcohol: monthly or less How often do you have six or more drinks on one occasion: Never AUDIT-C Alcohol total score: 1 Non-prescribed substance use: denies use How often does anyone, including family, friends and others, physically hurt you : never How often does anyone, including family, friends and others, insult or talk down to you: never How often does anyone, including family, friends and others, threaten you with harm: never How often does anyone, including family, friends and others, scream or curse at you: never service: No Meds Home Medications and Allergies Home Medications ?Medication ?Instructions ?Recorded ?Confirmed ?Type alprazolam 0.25 mg tablet 0.25 mg PO BID PRN 04/16/23 06/16/24 History benazepril 40 mg tablet 40 mg PO DAILY 04/16/23 06/16/24 History fluticasone propionate 50 1 spray intranasal DAILY 04/16/23 06/16/24 History mcg/actuation nasal spray,suspension glimepiride 1 mg tablet 1 mg PO DAILY 04/16/23 06/16/24 History metformin 500 mg tablet,extended 1,000 mg PO BID 04/16/23 06/16/24 History release 24 hr omeprazole 40 mg capsule,delayed 40 mg PO BID 04/16/23 06/16/24 History release primidone 50 mg tablet 100 mg PO TID 04/16/23 06/16/24 History propranolol 10 mg tablet 10 - 20 mg PO PRN 04/16/23 06/16/24 History rosuvastatin 40 mg tablet 40 mg PO HS 04/16/23 06/16/24 History nitroglycerin 0.4 mg sublingual 0.4 mg sublingual Q5M PRN 06/08/23 06/16/24 History tablet cyanocobalamin (vitamin B-12) 1,000 mcg IM Q28D 06/16/24 06/16/24 History 1,000 mcg/mL injection solution (Dodex) propranolol 160 mg capsule,24 160 mg PO DAILY 06/16/24 06/16/24 History hr,extended release Allergies Allergy/AdvReac Type Severity Reaction Status Date / Time Sulfa (Sulfonamide Allergy Verified 06/16/24 09:03 Antibiotics) Exam Narrative: Exam Narrative: Physical exam GENERAL: Comfortable, no acute distress. HEAD AND NECK: Atraumatic, normocephalic CARDIOVASCULAR: RRR. Normal S1, S2. No murmurs. RESPIRATORY: Clear to auscultation B/L. Good air entry B/L. No wheezes or rhonchi. GASTROINTESTINAL: Not tender to palpation. NEUROLOGY: Alert, awake, oriented X 3. Normal speech. MSK: No tenderness on palpating her spine. PSYCH: Normal mood, normal affect. Const: Vital Signs, click to edit/add: Vital Signs - 24 hr 06/16/24 08:52 06/16/24 11:05 Temperature 96.9 F L Pulse Rate [Pulse Oximeter] 93 64 Respiratory Rate 18 18 Blood Pressure [Le ft Upper Arm] 133/118 H 191/94 H Pulse Oximetry 99 96 Oxygen Delivery Me thod Room Air Room Air Hospitalist - H&P: Result Labs Labs: Short CBC 06/16/24 Range/Units 10:09 WBC 8.82 (4.50-11.00) K/uL Hgb 13.1 (12.0-16.0) gm/dL Hct 39.0 (33.0-51.0) % Plt Count 246 (140-440) K/uL BMP 06/16/24 10:09 Sodium 134 L Potassium 4.2 Chloride 99 Carbon Dioxide 21 BUN 20 Creatinine 1.0 Glucose 297 H Calcium 9.8 Liver Function 06/16/24 Range/Units 10:09 Total Bilirubin 0.6 (0.1-1.5) mg/dL AST 20 (12-35) U/L ALT 20 (4-35) U/L Alkaline Phosphatase 86 (40-150) U/L Albumin 4.6 (3.3-5.0) g/dL Imaging MR - Other: Radiologist's impression: Indication: Back pain. Technique: Multiplanar, multisequence MRI of the lumbar spine was performed without intravenous contrast. Comparison: Lumbar spine radiographs 06/14/2024. Findings: There are 5 lumbar type vertebral segments identified. The vertebral body heights are maintained without evidence of fracture. There is no discrete T1 hypointense marrow infiltrating process. The conus medullaris terminates at L1-2, normal. T12-L1: Disc degeneration with moderate posterior endplate fatty marrow change (Modic type 2). Minimal disc bulge without spinal canal or neural foraminal narrowing. Mild facet arthropathy. L1-2: Disc degeneration, with moderate apposing endplate combination fatty and edematous marrow change (combination of Modic type 1 and type 2). Disc bulge results in mild spinal canal narrowing. Left foraminal disc protrusion combined with facet arthropathy resulting in mild to moderate left neural foraminal narrowing. Mild right neural foraminal narrowing. Moderate facet arthropathy. L2-3: Disc degeneration, with mild opposing endplate fatty marrow change (Modic type 2). Disc bulge with superimposed right subarticular disc protrusion. There is mild overall spinal canal with moderate right lateral recess narrowing. Encroachment upon the descending right L3 nerves. Moderate right and mild left neural foraminal narrowing. L3-4: Disc degeneration. Disc bulge combined with facet arthropathy results in moderate spinal canal narrowing. [id number]-[id number] neural foraminal narrowing. Moderate facet arthropathy. L4-5: Grade 1 anterolisthesis. Uncovering the disc combined with facet arthropathy resulting in mild to moderate overall spinal canal narrowing with moderate right lateral recess narrowing. Encroachment upon the descending right L5 nerves. Moderate right and mild left neural foraminal narrowing. Severe facet arthropathy. L5-S1: Disc degeneration with minimal spinal canal narrowing. Mild neural foraminal narrowing. Severe facet arthropathy. Mild sacroiliac joint osteoarthritis. Impression: 1. At L2-3, right subarticular disc protrusion resulting in moderate lateral recess narrowing encroaching upon the descending right L3 nerves. 2. At L3-4, moderate spinal canal stenosis. 3. At L4-5, mild to moderate spinal canal with moderate right lateral recess narrowing. Encroachment upon the descending right L5 nerves. 4. Moderate to severe multilevel facet arthropathy. Dictated by Arnoldo Smith MD @ 06/16/2024 1:04:29 PM Assessment and Plan Assessment and plan (1) Lumbar radiculopathy: Problem comment: -MRI spine: At L2-3, right subarticular disc protrusion resulting in moderate lateral recess narrowing encroaching upon the descending right L3 nerves. At L3- 4, moderate spinal canal stenosis. At L4-5, mild to moderate spinal canal with moderate right lateral recess narrowing. Encroachment upon the descending right L5 nerves. Moderate to severe multilevel facet arthropathy. -ordered scheduled gabapentin and acetaminophen. In addition to morphine p.r.n. -sports medicine doctor to perform spinal injection tomorrow around 1:30 pm amanda 06/17. Status: Acute (2) History of breast cancer in female: Problem comment: -distant history of breast cancer that was treated with lumpectomy and radiation. -MRI of the lumbar spine today did not show any lesion involving the bone. Status: Acute (3) Diabetes: Problem comment: -started insulin sliding scale , low-dose -on metformin and glimepiride at home Status: Acute (4) HTN (hypertension): Problem comment: Resume home meds Status: Acute (5) HLD (hyperlipidemia): Problem comment: Resume statin Status: Acute Plan As above Total Time Spent Total Time Spent: Time spent: Today I spent 75 minutes seeing the patient, discussing the patient with ER staff, reviewing Expanse and EPIC notes/diagnostics, discussing the care plan with our care time that includes social work, PT/OT, pharmacy, RT, group home and documenting my impressions and plan in the medical record.
[2024-06-16 16:58] VITALS: BP 177/82; PULSE 69; RESP 16; RESP 18; TEMP 36.6; O2SAT 94; O2SAT 98; BMI 32.9
[2024-06-16] MEDS: ACETAMINOPHEN 500 MG TABLET 1000 MG PO (17:26)
[2024-06-16] MEDS: GABAPENTIN 100 MG CAPSULE 200 MG PO (17:33)
[2024-06-16] MEDS: PRIMIDONE 50 MG TABLET 100 MG PO (17:46)
[2024-06-16 19:00] VITALS: BP 142/69; PULSE 71; PULSE 98; RESP 16; TEMP 36.6; O2SAT 98
[2024-06-16] MEDS: ROSUVASTATIN CALCIUM 10 MG TABLET 40 MG PO (21:06)
[2024-06-16] MEDS: ENOXAPARIN 40 MG/0.4 ML INJ SUBCUT (21:06)
[2024-06-16] MEDS: OMEPRAZOLE 20 MG CAPSULE DR 40 MG PO (21:06)
[2024-06-16] MEDS: MORPHINE 2 MG/ML inj IVP (21:10)
[2024-06-16] MEDS: SODIUM CHLORIDE 0.9 % (FLUSH) 10 ML SYRINGE 5 ML IVF (21:10)
[2024-06-16 23:20] VITALS: BP 145/71; PULSE 90; RESP 16; TEMP 36.5; O2SAT 94
--- NOTE | 2024-06-16 23:26 | PC.NURSE ---
Shift Note: Pt friendly and cooperative. A/O and able to verbalize her needs. VSS, although Bp's slightly hypertensive. She rates pain to her low back and right hip/leg 6/10. One dose of morphine given at HS for pain management. Moves well with SBA.
[2024-06-17] MEDS: ACETAMINOPHEN 500 MG TABLET 1000 MG PO (01:24)
[2024-06-17 01:26] VITALS: BP 136/66; PULSE 75; RESP 16; TEMP 36.6; O2SAT 90
[2024-06-17] MEDS: GABAPENTIN 100 MG CAPSULE 200 MG PO ×3 (01:29→17:16)
[2024-06-17] MEDS: PRIMIDONE 50 MG TABLET 100 MG PO ×3 (01:29→21:49)
[2024-06-17] MEDS: MORPHINE 2 MG/ML inj IVP (02:09)
--- NOTE | 2024-06-17 06:32 | PC.NURSE ---
Pt is alert and oriented x3. Afebrile. Pt reports 3-7/10 pain in left leg, pain managed with scheduled and PRN medications. Pt is up SBA to bathroom, voiding, tolerating a regular diet. Pt slept throughout most of night.
[2024-06-17 09:01] VITALS: BP 134/68; PULSE 74; RESP 16; RESP 18; TEMP 36.8; O2SAT 93
[2024-06-17] MEDS: PROPRANOLOL ER 80 MG CAP 160 MG PO (09:07)
[2024-06-17] MEDS: BENAZEPRIL 10 MG TABLET 40 MG PO (09:07)
[2024-06-17] MEDS: OMEPRAZOLE 20 MG CAPSULE DR 40 MG PO ×2 (09:08→23:21)
[2024-06-17] MEDS: SODIUM CHLORIDE 0.9 % (FLUSH) 10 ML SYRINGE 5 ML IVF ×2 (09:08→22:28)
--- NOTE | 2024-06-17 10:01 | P.IMPN_ITS ---
Progress Note: A&P Assessment and plan (1) Pain crisis: Problem details: -IM morphine, Zofran and Tylenol yesterday seem to make all the difference. She was re-dosed with IV morphine twice overnight. We started her on gabapentin. -I added a Lidoderm patch, Celebrex, scheduled extended release Tylenol, continue the gabapentin and p.r.n. Oxy. Epidural steroid injection planned for 1300 today. Likely discharge after with physical therapy and follow-up with sports medicine. Status: Acute (2) DDD (degenerative disc disease), lumbar: Problem details: As above Status: Acute (3) Lumbar radiculopathy: Problem details: -MRI spine: At L2-3, right subarticular disc protrusion resulting in moderate la teral recess narrowing encroaching upon the descending right L3 nerves. At L3-4, moderate spinal canal stenosis. At L4-5, mild to moderate spinal canal with moderate right lateral recess narrowing. Encroachment upon the descending right L5 nerves. Moderate to severe multilevel facet arthropathy. Status: Acute (4) Diabetes: Problem details: -started insulin sliding scale , low-dose -on metformin and glimepiride at home -hyperglycemia is likely 2/2 prednisone for the back pain; continue to monitor -A1c in August of 2023 was 7.1. This is essentially been her A1c for 5 years. Status: Acute (5) HTN (hypertension): Problem details: continue home meds benzaepril, 40mg Status: Acute (6) Essential tremor: Problem details: Primidone, propranolol Status: Acute (7) Adjustment disorder with anxiety: Problem details: P.r.n. Xanax, home medication Status: Acute Subjective Date Seen: 06/17/24 Interval history: Daily Progress Note - Hospital Medicine Day #: 2 CC: 83-year-old with a known history of degenerative disc disease of the lumbar spine presented in acute pain crisis yesterday to our ER for right-sided hip pain radiating into the right thigh. Previous home treatments had included Aleve, muscle relaxers and prednisone. She also tried topical Voltaren and [place]- [place]. She previously has had injections with Dr. Melendez. No previous back surgeries. Her ER, H&P are all reviewed. I met with the patient and her son this morning. 24 HOUR UPDATE: She looks excellent this morning. She is in good spirits. She is sitting on the edge of her bed with her ankles crossed. She appears to be in very little pain. She states that interventions yesterday made all the difference. And that she feels a lot better today. She is describing achiness and pressure with a pins and needles feeling along the right hip in into the right thigh. Notable Labs, Micro, Rads, Interventions: Vital signs have all been stable-her blood pressure looks much improved over previous days CBC reviewed from yesterday. Chemistries reviewed from yesterday. Hyperglycemia noted. Sodium is 134 but corrects to normal with elevated blood sugar. X-ray, lumbar spine MRI and previous to admission lumbar x-ray all reviewed. Objective: Calm, in good spirits. No obvious discomfort. Vitals: see above Lungs: Clear. Cardiac: S1S2. Neuro: Gait is slow and deliberate, mildly antalgic. Strength and sensation are intact. Disposition/Potential discharge - She can likely discharge today after planned epidural steroid injection. Will work with Dr. Melendez for follow-up and advice going forward. Today I spent 50minutes seeing the patient, reviewing Expanse and EPIC notes/diagnostics, discussing the care plan with our care time that includes social work, PT/OT, pharmacy, RT, [facility] and documenting my impressions and plan in the medical record. Exam Const: Vital Signs, click to edit/add: Vital Signs - 24 hr 06/16/24 11:05 06/16/24 16:58 06/16/24 16:58 Temperature 97.8 F Pulse Rate [Pulse Oximeter] 64 Pulse Rate [Right Pulse Oximeter] 69 Respiratory Rate 18 16 18 Blood Pressure [Le ft Upper Arm] 191/94 H Blood Pressure [Ri ght Arm] 177/82 H Pulse Oximetry 96 94 98 Oxygen Delivery Me thod Room Air Room Air Room Air 06/16/24 19:00 06/16/24 23:20 06/17/24 01:26 Temperature 97.8 F 97.7 F 97.8 F Pulse Rate [Pulse Oximeter] 98 90 75 Pulse Rate [Right Pulse Oximeter] 71 Respiratory Rate 16 16 16 Blood Pressure [Le ft Upper Arm] Blood Pressure [Ri ght Arm] 142/69 H 145/71 H 136/66 Pulse Oximetry 98 94 90 Oxygen Delivery Me thod Room Air Room Air Room Air 06/17/24 09:01 06/17/24 09:01 Temperature 98.2 F Pulse Rate [Pulse Oximeter] 74 74 Pulse Rate [Right Pulse Oximeter] Respiratory Rate 16 18 Blood Pressure [Le ft Upper Arm] Blood Pressure [Ri ght Arm] 134/68 Pulse Oximetry 93 Oxygen Delivery Me thod Room Air Labs Labs: Laboratory Results - last 24 hr 06/16/24 10:09 WBC 8.82 RBC 4.15 Hgb 13.1 Hct 39.0 MCV 94 MCH 32 MCHC 34 RDW Coeff of Aimee 13.1 Plt Count 246 Neut % (Auto) 73.0 H Lymph % (Auto) 20.4 [place] % (Auto) 5.4 Eos % (Auto) 0.7 Baso % (Auto) 0.3 Neut # (Auto) 6.40 Lymph # (Auto) 1.80 [place] # (Auto) 0.50 Eos # (Auto) 0.06 Baso # (Auto) 0.03 Abs Immat Gran (auto) 0.02 Imm/Tot Granulo (auto) 0.2 Sodium 134 L Potassium 4.2 Chloride 99 Carbon Dioxide 21 Anion Gap 14 BUN 20 Creatinine 1.0 Estimated Creat Clear 38.10 Estimated GFR 57 Glucose 297 H Calcium 9.8 Total Bilirubin 0.6 AST 20 ALT 20 Alkaline Phosphatase 86 C-Reactive Protein 0.5 Total Protein 7.5 Albumin 4.6
[2024-06-17] MEDS: INSULIN ASPART 100 UNIT/ML SUBCUT ×4 (10:33→21:35)
[2024-06-17] MEDS: ACETAMINOPHEN 650 MG TABLET ER 1300 MG PO ×2 (10:36→17:17)
[2024-06-17] MEDS: LIDOCAINE 5% PATCH 1 PATCH TRANSDERMA (10:37)
[2024-06-17 15:00] VITALS: BP 145/66; PULSE 74; RESP 16; O2SAT 94
[2024-06-17] MEDS: CELECOXIB 200 MG CAPSULE PO (15:34)
--- NOTE | 2024-06-17 19:38 | PC.NURSE ---
Nursing Care Hours: [id number] Pt this shift alert and oriented, calm and cooperative. SB assist tolerated well. Pain controlled with scheduled medications. Insulin given per sliding scale. Pt educated on insulin use, and SS of hypoglycemia. VSS. Pt received cortisone injection, tolerated well but still having low pain.
[2024-06-17 21:05] VITALS: BP 155/66; PULSE 80; RESP 16; TEMP 36.5; O2SAT 96
[2024-06-17] MEDS: 0.9 % SODIUM CHLORIDE 1000 ml 1,000 ML IV (21:40)
[2024-06-17] MEDS: INSULIN ASPART 100 UNIT/ML 10 UNIT SUBCUT (23:20)
[2024-06-17] MEDS: ENOXAPARIN 40 MG/0.4 ML INJ SUBCUT (23:21)
[2024-06-17] MEDS: 0.9 % SODIUM CHLORIDE 1000 ml 1,000 ML 100 ML IV (23:21)
[2024-06-17] MEDS: ROSUVASTATIN CALCIUM 10 MG TABLET 40 MG PO (23:22)
[2024-06-18 00:05] VITALS: BP 147/66; PULSE 75; RESP 16; TEMP 36.6; O2SAT 95
--- NOTE | 2024-06-18 00:25 | PM.EN ---
Chart Event Note Date Seen: 06/17/24 Chart Event Note: Patient reported to nursing staff of not feeling well, feeling shaky, ?crazy?. Blood sugar check was 490. Previous blood sugars in the 200s. Had a cortisone shot today as well as just completed a course of oral prednisone. Patient was given 10 units aspart and started on normal saline. Repeat blood sugar remained > 400. Another 4 units of aspart were given. Repeat blood sugar 350. 6 units aspart ordered. Symptoms improving, no longer restless, more calm, feeling less shaky.
[2024-06-18] MEDS: INSULIN ASPART 100 UNIT/ML 6 UNIT SUBCUT (00:56)
[2024-06-18] MEDS: ACETAMINOPHEN 650 MG TABLET ER 1300 MG PO ×2 (02:16→10:51)
[2024-06-18 06:30] VITALS: BP 146/80; PULSE 85; RESP 16; TEMP 36.6; O2SAT 99
[2024-06-18] MEDS: PRIMIDONE 50 MG TABLET 100 MG PO (06:37)
[2024-06-18 08:04] VITALS: BP 159/88; PULSE 68; RESP 18; TEMP 36.4; O2SAT 90
[2024-06-18] MEDS: OMEPRAZOLE 20 MG CAPSULE DR 40 MG PO (08:32)
[2024-06-18] MEDS: PROPRANOLOL ER 80 MG CAP 160 MG PO (08:32)
[2024-06-18] MEDS: BENAZEPRIL 10 MG TABLET 40 MG PO (08:33)
[2024-06-18] MEDS: CELECOXIB 200 MG CAPSULE PO (08:35)
[2024-06-18] MEDS: LIDOCAINE 5% PATCH 1 PATCH TRANSDERMA (08:35)
--- NOTE | 2024-06-18 11:25 | PM.DS1 ---
DS: Providers Provider Date Seen: 06/18/24 Date of admission: 06/16/24 15:49 Primary care physician: Deb Harris PA-C Admitting Clinician: Shefali Lazo MD Consults: 06/16/24 16:29 Consult to Occupational Therapy [CONS] Routine Comment: Reason(s) for OT Consult:: Evaluate and Treat Any Restrictions?:: No Restrictions Consult to Physical Therapy [CONS] Routine Comment: Reason(s) for PT Consult:: Evaluate and Treat Any Restrictions?:: No Restrictions Attending Physician on discharge: JANI Fleming, [facility] Date [facility]charge: 06/18/24 DS: Diagnosis Discharge Diagnosis (1) Pain crisis: Status: Acute Problem details: -IM morphine, Zofran and Tylenol were administered in the ED. She was re-dosed with IV morphine twice during the hospital course. We started her on gabapentin however patient has had a bad experience with this in the past with quite a bit of brain fog. She would prefer not to take this so we have discontinued this from her new medications. -continue Lidoderm patch, Celebrex, scheduled extended release Tylenol, and p.r.n. Oxy. Epidural steroid injection was completed on 06/17/[address] Melendez. Plan was for patient to discharge home after physical therapy and follow-up with sports medicine. However, following injection, staff reported patient was not comfortable returning home on her own so remained in the hospital overnight. Pain remained relatively well managed the following morning. She has outpatient follow-up with Dr. Salvador tomorrow, 06/19/24. (2) DDD (degenerative disc disease), lumbar: Status: Acute Problem details: Ongoing management recommended as above (3) Lumbar radiculopathy: Status: Acute Problem details: -MRI spine: At L2-3, right subarticular disc protrusion resulting in moderate lateral recess narrowing encroaching upon the descending right L3 nerves. At L3-4, moderate spinal canal stenosis. At L4-5, mild to moderate spinal canal with moderate right lateral recess narrowing. Encroachment upon the descending right L5 nerves. Moderate to severe multilevel facet arthropathy. Ongoing management recommended as above (4) Diabetes: Status: Acute Problem details: -started insulin sliding scale , low-dose -on metformin and glimepiride at home -hyperglycemia is likely 2/2 prednisone for the back pain; continue to monitor -A1c in August of 2023 was 7.1. This is essentially been her A1c for 5 years. (5) HTN (hypertension): Status: Acute Problem details: continue home meds benzaepril, 40mg (6) Essential tremor: Status: Acute Problem details: Primidone, propranolol Observed to worsen when more anxious. Able to control this when calm or assertive. (7) Adjustment disorder with anxiety: Status: Acute Problem details: P.r.n. Xanax, home medication On day of discharge, patient was very anxious. Had multiple questions and concerns that she would not be able to be home alone. Medically stable for discharge. She has family that can stay with her. PT and OT assessed and comfortable with patient returning home as she is able to independently complete her ADLs. developmental services worker consulted to discuss private pay options transitioning from hospital to home. In the end, patient and sister made decision to return home with family support. (8) Hyperglycemia: Status: Acute Problem details: On the evening following her steroid injection, patient was noted to have a POC blood sugar of 471, 490 on recheck. Patient became quite anxious, reporting feeling crazy out of her head, increased tremulousness but mentating and answering questions. She was given subcutaneous doses of insulin aspart as well as started on normal saline hydration with down trending of glucose. Blood sugars the following morning under 200. Will discharge home on her normal oral medications. DS: Summary Hospital Course Hospital Course: [age] year old female was admitted to the medical floor for management of acute on chronic pain related to lumbar radiculopathy. Course of care and details as noted above. Pain improved with steroid injection and course of scheduled Tylenol, lidocaine patch, p.r.n. oxycodone. Patient discharged to home on same. Does not tolerate gabapentin so we discontinued this. Will have outpatient follow-up with sports medicine tomorrow, MRI findings reviewed. Will follow up with PCP for ongoing management of anxiety. Remainder of chronic medical comorbidities were monitored and managed with home medications. Status at Discharge Functional status at discharge: independent ambulation Overall status at discharge: patient is back to baseline Time Spent with Patient Time attestation: Total time spent providing and/or coordinating discharge services: Time spent: Greater than 30 minutes Exam Narrative: Exam Narrative: PHYSICAL EXAM General: Very anxious this morning, able to work herself into worsening tremors and tears, followed by laughter and resolution of tremors - incredibly labile Cardiovascular: RRR Pulmonary: No dyspnea Neurological: Alert, answering questions appropriately Skin: Warm, dry. Const: Vital Signs, click to edit/add: Vital Signs - 24 hr 06/17/24 15:00 06/17/24 21:05 06/17/24 21:05 Temperature 97.7 F Pulse Rate [Pulse Oximeter] 74 80 80 Respiratory Rate 16 16 16 Blood Pressure [Ri ght Arm] 145/66 H 155/66 H Pulse Oximetry 94 96 Oxygen Delivery Me thod Room Air Room Air 06/18/24 00:05 06/18/24 06:30 06/18/24 08:04 Temperature 97.8 F 97.8 F 97.5 F L Pulse Rate [Pulse Oximeter] 75 85 68 Respiratory Rate 16 16 18 Blood Pressure [Ri ght Arm] 147/66 H 146/80 H 159/88 H Pulse Oximetry 95 99 90 Oxygen Delivery Me thod Room Air Room Air Room Air DS: Data Imaging Lumbar MRI: Attestation: I have reviewed the pertinent imaging results. Radiologist's impression: There are 5 lumbar type vertebral segments identified. The vertebral body heights are maintained without evidence of fracture. There is no discrete T1 hypointense marrow infiltrating process. The conus medullaris terminates at L1-2, normal. T12-L1: Disc degeneration with moderate posterior endplate fatty marrow change (Modic type 2). Minimal disc bulge without spinal canal or neural foraminal narrowing. Mild facet arthropathy. L1-2: Disc degeneration, with moderate apposing endplate combination fatty and edematous marrow change (combination of Modic type 1 and type 2). Disc bulge results in mild spinal canal narrowing. Left foraminal disc protrusion combined with facet arthropathy resulting in mild to moderate left neural foraminal narrowing. Mild right neural foraminal narrowing. Moderate facet arthropathy. L2-3: Disc degeneration, with mild opposing endplate fatty marrow change (Modic type 2). Disc bulge with superimposed right subarticular disc protrusion. There is mild overall spinal canal with moderate right lateral recess narrowing. Encroachment upon the descending right L3 nerves. Moderate right and mild left neural foraminal narrowing. L3-4: Disc degeneration. Disc bulge combined with facet arthropathy results in moderate spinal canal narrowing. [id number] neural foraminal narrowing. Moderate facet arthropathy. L4-5: Grade 1 anterolisthesis. Uncovering the disc combined with facet arthropathy resulting in mild to moderate overall spinal canal narrowing with moderate right lateral recess narrowing. Encroachment upon the descending right L5 nerves. Moderate right and mild left neural foraminal narrowing. Severe facet arthropathy. L5-S1: Disc degeneration with minimal spinal canal narrowing. Mild neural foraminal narrowing. Severe facet arthropathy. Mild sacroiliac joint osteoarthritis. Impression: 1. At L2-3, right subarticular disc protrusion resulting in moderate lateral recess narrowing encroaching upon the descending right L3 nerves. 2. At L3-4, moderate spinal canal stenosis. 3. At L4-5, mild to moderate spinal canal with moderate right lateral recess narrowing. Encroachment upon the descending right L5 nerves. 4. Moderate to severe multilevel facet arthropathy. Hip x-ray: Attestation: I have reviewed the pertinent imaging results. Radiologist's impression: No evident acute displaced fracture. Mild degenerative change of the hips. Moderate degenerative changes of the sacroiliac joints. Mild degenerative change of the pubic symphysis. Partially imaged degenerative change of the lumbosacral spine. Lumbosacral transitional anatomy. IMPRESSION: 1. No evident acute displaced fracture. 2. Mild degenerative change of the hips. Discharge Plan Discharge Disposition: Home w/ Parent or Adult Date of Admission: 06/16/24 15:49 Attending Provider on Discharge: Estrella Sosa Primary Care Provider: Deb Harris Condition: Improved Anticipated Discharge Date/Time: 06/17/24 16:00 Discharge Medications: New lidocaine 5 % Adhesive Patch,Medicated 1 patch transdermal Q24H Qty: 30 0RF oxycodone 5 mg Tablet 2.5 mg PO Q4H PRN (Reason: pain) Qty: 30 0RF celecoxib 200 mg Capsule 200 mg PO DAILY Qty: 30 0RF acetaminophen 650 mg Tablet Extended Release 1,300 mg PO Q8H Qty: 90 0RF Continued cyanocobalamin (vitamin B-12) [Dodex] 1,000 mcg/mL solution 1,000 mcg IM Q28D propranolol 160 mg capsule,extended release 24 hr 160 mg PO DAILY primidone 50 mg tablet 100 mg PO TID omeprazole 40 mg capsule,delayed release(DR/EC) 40 mg PO BID glimepiride 1 mg tablet 1 mg PO DAILY propranolol 10 mg tablet 10 - 20 mg PO PRN alprazolam 0.25 mg tablet 0.25 mg PO BID PRN benazepril 40 mg tablet 40 mg PO DAILY fluticasone propionate 50 mcg/actuation spray,suspension 1 spray INTRANASAL DAILY metformin 500 mg tablet extended release 24 hr 1,000 mg PO BID rosuvastatin 40 mg tablet 40 mg PO HS nitroglycerin 0.4 mg tablet, sublingual 0.4 mg sublingual Q5M PRN Discharge Orders: Discharge Order (Routine); Ordered 06/18/24 Ordered By: Rosmery Alas Patient Education: Acetaminophen (By mouth), Oxycodone, Rapid Release (By mouth), Lidocaine Patch (On the skin), Back Pain (ED) Additional Instructions: Please see [facility] (Dr. Melendez in sports medicine) 06/19/24 as scheduled. Start physical therapy. Physical Therapy Order: Please see patient and evaluate for acute on chronic DDD - Lumbar with notable findings at L2-L3, L4-L5. Followed by Dr. Melendez. Follow-up with your PCP, Deb Harris for ongoing management chronic comorbidities. Activity Level: Activity as Tolerated Discharge Diet: Diabetic Follow Up Appointments: [facility] [place] [Provider Group] (first available. ) Deb Harris PA-C [Primary Care Provider] - 06/27/24 2:00 pm (F/u with Deb Harris - anxiety, tremors, chronic comorbidities 7-[address] Melendez at [facility] on 2023 @9:40am) Forms: [facility] Info Instructions
--- NOTE | 2024-06-18 13:37 | PC.SOCIAL ---
Discharge planning: Prior to discharge, met with pt and sister in room regarding discharge plan. Pt initially indicated she wanted to go to a care home with 24/7 nursing care available because she is worried about having another event at home where she lives alone. She shared that she had family who could stay with her but does not want her family to have to witness her having an event or figure out what to do about it. Provided pt with list of halfway facilities and discussed this option versus option of returning home with family to stay with her. Pt was aware and agrees to paying privately for a care home, but eventually decided she would like to return to her own home with family to stay with her and that her family could call 911 if there were an emergency and medical assistance were needed. Sister was supportive of this plan. Provided pt and sister with resource lists for the [employer], [employer], county home demonstrator care agencies and emergency response systems. Pt states she has contacted the [employer] before and they are very helpful. Sister is appreciative of information on county home demonstrator care that was provided. Pt is pleased with the idea of an emergency response system as she enjoys her independence but also wants to have the confidence she can quickly get help if needed.PT and sister were very appreciative of information provided and discussion with social work.
--- NOTE | 2024-06-18 16:02 | PC.NURSE ---
shift note: vss stable. pt within comfort range. pt up indept. Iv dc'd intact. Reviewed dc instructions and copies sent with pt at dc. Reviewed belongings. Belongings sent with pt at dc.
== END 2024-06-18 13:51 | disposition home or self-care (01) ==
LOC: ED 15:02 → MEDSURG 15:50
PROVIDERS: Admitting Provider Family Medicine; Emergency Provider Family Medicine; PCP Physician Assistant Medical; Visit Provider Family Medicine
DX: M54.16 Radiculopathy, lumbar region (principal); M51.369 Other intervertebral disc degeneration, lumbar region without mention of lumbar back pain or lower extremity pain; M48.062 Spinal stenosis, lumbar region with neurogenic claudication; M47.816 Spondylosis without myelopathy or radiculopathy, lumbar region; E11.65 Type 2 diabetes mellitus with hyperglycemia; M25.551 Pain in right hip; M25.561 Pain in right knee; M79.651 Pain in right thigh; G89.29 Other chronic pain; E78.5 Hyperlipidemia, unspecified; G25.0 Essential tremor; F43.22 Adjustment disorder with anxiety; I10 Essential (primary) hypertension; Z79.84 Long term (current) use of oral hypoglycemic drugs; Z85.3 Personal history of malignant neoplasm of breast; Z87.891 Personal history of nicotine dependence
CPT/HCPCS: 36415; 64483; 64484; 72148; 73502; 80053; 82962; 85025; 86140; 96361; 96372; 96374; 96375; 96376; 97110; 97161; 97165; 97535; 99284; 99285; A9270; G0378; J1100; J1650; J2270; J2405; J7030; Q9966

== ENCOUNTER 2025-06-21 10:42 | Outpatient (CLI) | payer MEDICARE, BC, SELFPAY | END 2025-06-21 10:43 | disposition home or self-care (01) | LOC: AMB 06-24 01:56 | PROVIDERS: PCP Physician Assistant Medical; Visit Provider Family Medicine | DX: S79.911A Unspecified injury of right hip, initial encounter (principal); S79.912A Unspecified injury of left hip, initial encounter; W19.XXXA Unspecified fall, initial encounter; Y92.009 Unspecified place in unspecified non-institutional (private) residence as the place of occurrence of the external cause | CPT/HCPCS: A0425; A0427 ==

== ENCOUNTER 2025-06-21 11:18 | Inpatient (IN) | payer MEDICARE, BC, SELFPAY ==
[2025-06-21] VITALS (41 sets, daily range): BP systolic 92–199; BP diastolic 46–138; PULSE 65–206; RESP 12–21; TEMP 35.3–37.2; O2SAT 90–99
--- OUTSIDE RECORDS SUMMARY | 2025-06-21 11:20 | XMS_ITS | Clinical Summary ---
Author Organization [facility] Address [address] [place] [address] Care Team Providers Care Sleep Scientist Name Role Phone Deb Harris Primary Care Provider Soila Lozada MD Unavailable [phone] Allergies Active AllergyReactionsCriticalityNoted DateCommentsSulfa (Sulfonamide Antibiotics)Rash06/27/2008 Medications MedicationSigDispense QuantityRefillsLast FilledStart DateEnd DateStatus naproxen sodium (ALEVE) 220 mg cap Take by mouth. 220 mg tidActive durable medical equipment (DME) Indications:Malignant neoplasm of female breast, unspecified estrogen receptor status, unspecified laterality, unspecified site of breast (HC)Custom measured bra 3 Each 02/03/2020Active blood-glucose meter Indications:Type 2 diabetes mellitus without complication, without long-term current use of insulin (HC)Apply on dry, clean, hairless skin. Dispense meter, test strips, lancets covered by pt ins. E11.9 NIDDM type II - Test 1 time/day 1 Each 08/22/2022ctive nitroglycerin (NITROSTAT) 0.4 mg sublingual tablet Indications:Chest pain in adultPlace 1 Tablet (0.4 mg) under the tongue every 5 minutes if needed for Chest Pain. 25 Tablet 02/28/2023ctive Breast Prosthesis Indications:Primary cancer of left breast (HC)For personal use. 1 Each ctive ketoconazole 2% topical (NIZORAL) cream Indications:Intertrigoapply to abdominal fold and breast folds twice daily until rash clears 60 g ctive Benazepril HCl 40 mg tablet Indications:HTN (hypertension)Take 1 Tablet (40 mg) by mouth once daily. 90 Tablet 5Active glimepiride (AMARYL) 1 mg tablet Indications:Type 2 diabetes mellitus without complication, without long-term current use of insulin (HC)Take 1 Tablet (1 mg) by mouth once daily with a meal. 90 Tablet 5Active metFORMIN (GLUCOPHAGE XR) 500 mg Extended-Release tablet Indications:Type 2 diabetes mellitus without complication, without long-term current use of insulin (HC)TAKE 4 TABLETS(2000 MG) BY MOUTH EVERY DAY 360 Tablet tive nystatin powder (Nystop) powder Indications:Yeast infectionAPPLY TOPICALLY TO AFFECTED AREAS TWICE DAILY NEEDED 60 g 5Active omeprazole (PRILOSEC) 40 mg Delayed-Release capsule Indications:Esophageal strictureTAKE 1 CAPSULE BY MOUTH TWICE DAILY Strength: 40 mg 180 Capsule 5Active primidone (MYSOLINE) 50 mg tablet Indications:TremorTake 2 Tablets (100 mg) by mouth three times daily. 540 Tablet tive propranolol ER (INDERAL LA) 160 mg Cs24 Sustained-Release capsule Indications:HTN (hypertension)TAKE 1 CAPSULE BY MOUTH TWICE DAILY Strength: 160 mg 180 Capsule 5Active rosuvastatin (CRESTOR) 40 mg tablet Indications:Pure hypercholesterolemiaTake 1 Tablet (40 mg) by mouth at bedtime. 90 Tablet 5Active fluticasone (50 mcg per actuation) nasal solution (FLONASE) Indications:Post-nasal drainageInhale 1 [place] in both nostrils once daily. 48 g 5Active Post Mastectomy Bra Indications:Malignant neoplasm of female breast, unspecified estrogen receptor status, unspecified laterality, unspecified site of breast (HC)For personal use. 2 Packet 5Active amLODIPine (Norvasc) 5 mg tablet Indications:HTN (hypertension)Take 1 Tablet (5 mg) by mouth once daily. 90 Tablet 5Active ezetimibe (ZETIA) 10 mg tablet Indications:Pure hypercholesterolemiaTake 1 Tablet (10 mg) by mouth once daily. 90 Tablet 5Active furosemide (LASIX) 20 mg tablet Indications:SOB (shortness of breath),2+ pitting edema,Hypertension, unspecified type,Congestive heart failure, unspecified HF chronicity, unspecified heart failure type (HC)Take 10 mg (0.5 tablets) as needed for 3 lb weight gain in one day, 5 lbs weight gain in one week, increase shortness of breath or increased edema, up to 0.5 tablets a day 30 Tablet 5Active ketoconazole 2% shampoo (NIZORAL) 2 % shampoo Indications:Seborrheic dermatitisLather on damp scalp, leave on for 5-10 min, then rinse with water. Recommend using 2-3 times weekly. 120 mL 1115Active lidocaine 5 % topical patch Indications:Foot pain, leftApply on dry, clean, hairless skin. Apply 1 patch to painful area of skin for up to to 12 hours within 24 hour period. 30 Patch 5Active propranolol ER (INDERAL LA) 80 mg Cs24 Sustained-Release capsule Indications:TremorTAKE 1 CAPSULE BY MOUTH PRIOR TO SOCIAL SETTING NEEDED 60 Capsule 5Active estradioL (ESTRACE) 0.01% (0.1 mg/g) vaginal cream Indications:Atrophic vaginitisApply a thin layer topically at the urethra three times a week. 42.5 g 5Active ALPRAZolam (XANAX) 0.25 mg tablet Indications:AnxietyTAKE 1 TABLET(0.25 MG) BY MOUTH TWICE DAILY NEEDED 60 Tablet 5Active ALPRAZolam (XANAX) 0.25 mg tablet Indications:AnxietyTAKE 1 TABLET(0.25 MG) BY MOUTH TWICE DAILY NEEDED 60 Tablet DiscontinuedHospital, Clinic, or Other Facility Administered MedicationOrdered DoseRouteFrequencyStart DateEnd DateStatus cyanocobalamin 1,000 mcg injection (VITAMIN B12) Indications:Vitamin B12 tuimapbvjr8848 mcgIMQ 4 WEEKS (28 DAYS)03/24/2020Active Active Problems ProblemNoted DateDiagnosed DateType 2 diabetes mellitus with chronic kidney disease, without long-term current use of insulin, unspecified CKD stage 08/25/2024Stage 3a chronic kidney eikrgtf0408/25/2024Morbid (severe) obesity due to excess yibjfkcn02/21/2024Depression, major, single episode, moderate 08/03/2021Melanoma in situ of back08/18/2015HTN (hypertension)05/25/2014 Qnonujnlebjokg17/17/2014ftercare following joint yvnqvdlhokc83/24/2014S/P total knee dtcwilcnsgda62/24/8440Jprkak86/24/2014DVT wskpvotwoob05/24/2014Edema 03/01/20143813Dxlacxl81/24/2463Clmvoixxodol47/24/2014Dysphagia, unspecified(787.20) 10/07/2013 Overview (10/07/2013): EGD 09/2013 normal, may have esophageal dysmotility Essential acstke6006/17/2013Lumbar disc herniation with wthxmobvrsmjd50/11/2013 Overview (03/19/2013): January 2013: Epidural steroid injection by Dr. Salvador for right L4 impingement. ACP (advance care planning)11/03/2012 Overview (11/03/2012): Patient has identified Health Care Agent(s): Yes Add Health Care Agents: Yes Health Care Agent(s): Primary Health Care Agent: Jil Yu Relationship: sister Secondary Health Care Agent: Jesse Peters Relationship: son [phone] cell Patient has Advance Care Plan Documents (Health Care Directive, POLST): Yes Advance Care Plan Documents: Health Care Directive Patient has identified Specific Treatment Preferences: Yes Specific Treatment Preferences: a.) Code Status: CPR/Attempt Resuscitation b.) Goals of Treatment: Comfort Care. If I reach a point where I can no longer make decisions for myself and it is reasonably certain I will not recover my ability to know who I am or I am in a terminal condition or a vegetative state, I want comfort care only. Do not intubate but use medication, oxygen, oral suction, and manual clearing of airways, etc. as needed for immediate comfort. Breast pbcwcm4907/18/2008Diabetes xkaiwydu49/10/2009bscess of zqwqdu7307/18/2008 Chest painAbnormal cardiovascular stress test Encounters DateTypeDepartmentCare UdzcGeasntvrtqg33/25/2025Refill [address] [address] Deb Harris PA Refill Request (Alprazolam)06/01/2025 10:45 AM CSTNurse/Clinic Staff Only [address] [address] Immunization/Luowyzwsm23/24/5313Tczele79/17/2025 10:30 AM CSTOffice Visit [address] [address] Deb Harris PA Follow Up (Was told to follow up)05/25/20255636Gqxdqp07/11/2025 2:00 PM CSTProcedure Only [address] [address] Grayson Borges L Ac Hsgcuayrkvf37/11/2535Lqcvmi64/03/2025Refill [address] [address] Deb Harris PA Refill Request (Propranolol Er)05/07/2025 11:00 AM CDTNurse/Clinic Staff Only [address] [address] 05/07/2025Telephone [address] [address] Honey Arias PA Prior Authorization (lidocaine 5 % topical patch DENIED)05/07/2025Travel 05/04/2025 3:45 PM CDTOffice Visit [address] [address] Honey Arias PA Foot Problem (sharp shooting pain in arch of left foot, x3-4 days); Vaginal Problem (vaginal burning x1 month, vagisil helps, but only temporarily ) 05/04/20257551Ikssps68/14/2025 11:30 AM CDTProcedure Only [address] [place] [address] Grayson Borges L Ac Sbxjixmbayo34/14/2032Dzifdu15/10/2025Telephone [facility] [address] [place] [address] Deb Harris PA 04/14/2025 1:20 PM CDTOffice Visit [facility] [address] [place] [address] Yolis Gonsales MD Derm Dgncppy2004/13/2025 9:30 AM CDTOffice Visit [facility] [address] [facility] [address] [place] [address] Kalra Palmer CNS CV Heart Failure Est (CHF FU, CTA/LABS PRIOR, DX: SOB (shortness of breath) [R06.02], 2+ pitting edema [R60.9] /Pt states she gets fatigued and has trouble breathing sometimes.)04/13/20255200Czcayi65/06/2025Orders Only [facility] [address] [place] [address] Mickie Zarco MD <No scans attached>04/10/2025 2:20 PM CDTTelemedicine [facility] [address] [place] [address] Deb Harris PA Telehealth (UTI? / urgency, x dysuria x 3 days)04/09/2025 11:00 AM CDT Nurse/Clinic Staff Only [facility] [address] [place] [address] Immunization/Injection (B-12 INJECTION )04/09/20258975Lveidj08/01/2025Orders Only [facility] [address] [place] [phone] Karla Palmer CNS <No scans attached>03/25/2025 11:50 AM CDTOffice Visit [facility] [address] [place] [address] Deb Harris PA Follow Up (Follow up after lung test. / has questions ); Urinary Problem (Frequency , urgency, alittle discomfort, alittle blood x 4-5 days)03/25/2025 Travelfrom Last 3 Months Immunizations ImmunizationAdministration DatesNext DueAMB Influenza, IIV3 (Age >=3 years)(Flu Clinic Only)04/29/2012COVID-19 vaccine (Moderna 100mcg/0.5mL) PF, MDV10/13/2021, 09/24/2020,08/27/2020Influenza A (H1N1), Mzvkyevirun58/18/2010Influenza A (H1N1), Inactivated (Age >=3 Years)07/26/2009Influenza Virus, Unspecified 04/08/2011,04/22/2010Influenza, High-dose Pnkqfizpfwk73/19/2024,05/11/2016, 04/15/2015,04/16/2014Influenza, High-dose Quadrivalent Exujrfsyued27/17/2023, 04/18/2022,04/12/2021Influenza, IIV3 (Age 6-35 mos)05/02/2011,03/26/2009, 06/05/2007Influenza, IIV3 (Age >=3 years)04/15/2013,04/29/2012,05/02/2011, 04/22/2010,03/26/2009,06/05/2007,04/28/2006,05/05/2005,04/20/2004,04/08/2004, 05/06/2003,05/09/2002,04/08/1999Influenza, Inactivated AIIV4 (Age 65+ Years) Preserv Free04/20/2020Influenza, Inactivated IIV3 (Age 65+ Years) Preserv Free 03/25/2019,05/08/2018,04/19/2017Pneumococcal Poly,23-Valent (Pneumovax) 06/11/2018,10/21/2004,05/16/1996Pneumococcal conj 13-Valent (Prevnar 13) 06/01/2015RSV, Recombinant ADJ Reconstituted (Arexvy 120MCG/0.5mL)05/09/2023Td (Age >=7 Years)10/21/2004,05/16/1996Td, Preservative Free (age >= 7 Years) 08/13/2015Tdap02/28/2012,10/21/2004Zoster (Zostavax-ZVL, live)12/22/2008 Family History Medical HistoryRelationNameCommentsAlcoholismFatherHeart DiseaseMotherdied age 68Cancer-breastSisterAnesthesia ProblemNo Family HistoryBlood DiseaseNo Family HistoryCancer-ovarianNo Family HistoryRelationNameStatusCommentsFatherDeceased (Age 62)complications from severe burnsMotherDeceasedheart diseaseSister Social History Tobacco UseTypesPacks/DayYears UsedDateSmoking Tobacco: NeverSmokeless Tobacco: Never Tobacco Cessation:Counseling Given: Yes Alcohol UseStandard Drinks/WeekCommentsYes2 (1 standard drink = 0.6 oz pure alcohol)PHQ-2AnswerDate RecordedPHQ-2 TOTAL [id number] Connections AnswerDate RecordedDo you often feel lonely or isolated from those around you?0 06/12/2024Financial Resource StrainAnswerDate RecordedDifficulty of Paying Living Lcehibhm595/05/2024ifficulty of Paying Living ExpensesNot on file 06/12/2024Food InsecurityAnswerDate RecordedDo you worry your food will run out before you are able to buy more?Transportation NeedsAnswerDate RecordedDoes lack of transportation keep you from medical appointments?1 06/12/2024oes lack of transportation keep you from work, meetings or getting things that you need?Housing StabilityAnswerDate RecordedWhat is your housing situation today?UtilitiesAnswerDate RecordedDo you have trouble paying for utilities (for example, heat, electricity, water, phone)?1 06/12/2024CommentsNoSex and Gender InformationValueDate RecordedSex Assigned at BirthNot on fileLegal BrjOgssnr61/14/2013 5:25 AM CSTGender Identity Not on fileSexual OrientationNot on file Last Filed Vital Signs Vital SignReadingTime TakenCommentsBlood Igvwjjrk324/7811 10:45 AM HOB GRINDER Cjkwa725505/25/2025 10:45 AM JQKFmdxteljwgl76.6 ??C (97.9 ??F)05/04/2025 3:48 PM CDTRespiratory Jwwp109909/17/2019 12:01 PM CDTOxygen Gzjjvqavob908%05/04/2025 3:48 PM CDTInhaled Oxygen Concentration--Ljwbar76.2 kg (190 lb)05/25/2025 10:45 AM IDVCnmmmx439.6 cm (5' 4.02)04/13/2025 9:29 AM CDTBody Mass Index32. 9:29 AM CDT Plan of Treatment DateTypeDepartmentCare Team (Latest Contact Info)Xxrskrmbvvu38/18/2025 2:00 PM CSTProcedure Only [facility] [address] [place] [address] Grayson Borges L Ac [address] [place] [address] 06/29/2025 11:15 AM CSTNurse/Clinic Staff Only [facility] [address] [place] [address] 07/13/2025 1:30 PM CSTOrders Only [facility] [address] [place] [address] Lab, Farm 07/16/2025 1:30 PM CSTProcedure Only [facility] [address] [place] [address] Grayson Borges L Ac [address] [place] [address] 07/17/2025 10:30 AM CSTOffice Visit [facility] [address] [place] [address] [address] [place] [address] Karla Palmer, FUNERAL DIRECTOR/EMBALMER [address] [facility] [address] [place] [address] 07/27/2025 10:45 AM CSTNurse/Clinic Staff Only [facility] [address] [place] [address] 08/10/2025 1:30 PM CSTProcedure Only [facility] [address] [place] [address] Grayson Borges L Ac [address] [place] [address] 09/11/2025 2:00 PM CSTProcedure Only [facility] [address] [place] [address] Grayson Borges L Ac [address] [place] [address] 04/20/2026 2:20 PM CDTOffice Visit [facility] [address] [place] [address] Christine Yu PA [address] [place] [address] Health MaintenanceDue DateLast DoneCommentsZoster (shingles) series for age 50+ (2 of 3)Influenza Vaccine (#1), 04/20/2020, 03/25/2019, Additional history existsTetanus uivpvfs2508/13/2025 08/13/2015, 02/28/2012, 03/28/2011 (Completed outside of [facility]), Additional history existsDepression screening for age 12+6008/26/2024, 08/25/2024, 08/25/2024, Additional history existsMedicare Wellness for age 65+08/26/2025 08/25/2024, 08/24/2023, 08/22/2022, Additional history existsCOVID-19 vaccine series (2024- season), 03/12/2024, 04/14/2023, Additional history existsBMI (ht and wt on same day) for age 18+04/13/2026 04/13/2025, 03/03/2025, 08/25/2024, Additional history existsPneumococcal series for age 50+Hmcrnnozk30/04/2018, 06/01/2015, 10/21/2004, Additional history existsDEXA/DXA scan for age 65+Owyptznzf44/10/2022, 08/27/2015, 03/28/2011 (Completed outside of [facility])RSV vaccine for adults or pregnancyCompleted 05/09/2023Hepatitis B series for 19+Aged OutNo longer eligible based on patient's age to complete this topic Procedures Procedure NamePriorityDate/TimeAssociated DiagnosisCommentsHEMOGLOBIN A1C MONITORING (POCT)Tbcedae6805/25/2025 11:33 AM HOB GRINDER Type 2 diabetes mellitus without complication, without long-term current use of insulin (HC) ACUPUNCTURE PLAN OF OCJXYutpdsf14/11/2025 1:55 PM HOB GRINDER Other low back pain TRICHOMONAS, CHAI, AND BACTERIAL VAGINOSIS BY JHNWztmyrq01/27/2025 4:11 PM CDT Lower urinary tract symptoms (LUTS) URINE PIQVKKTKiociwv19/27/2025 4:05 PM CDT Lower urinary tract symptoms (LUTS) URINALYSIS QVXGPVFCCXDEndvoot94/27/2025 4:05 PM CDT Lower urinary tract symptoms (LUTS) URINALYSIS MACROSCOPIC - [facility] ONLY POC DIP (QUEST)Gqbqooh1805/04/2025 4:05 PM CDT Lower urinary tract symptoms (LUTS) ACUPUNCTURE PLAN OF FQIYTygntyg53/14/2025 11:30 AM CDT Other low back pain URINE TPWSOGKMmudgsn79/03/2025 1:55 PM CDT Dysuria URINALYSIS XZPELWVVHRWRpcnpcv92/03/2025 1:55 PM CDT Dysuria URINALYSIS MACROSCOPIC - [facility] ONLY POC DIP (QUEST)Aqaccsr2504/10/2025 1:55 PM CDT Dysuria URINE BRGMVPMWxwxfgd91/17/2025 2:28 PM CDT Urinary frequency URINALYSIS SBEGDTSHZVLHjdxqmr24/17/2025 2:28 PM CDT Urinary frequency URINALYSIS MACROSCOPIC - [facility] ONLY POC DIP (QUEST)Gbvsavt0803/25/2025 2:28 PM CDT Urinary frequency XR DXA BONE DENSITY 2 SITES AXIAL AND 1 SITE FGOUJOAOCNEvoxwep16/10/2022 11:00 AM HOB GRINDER Menopausal symptoms Unspecified menopausal and perimenopausal disorder from Last 3 Months or Most Recently Relevant to Health Maintenance Results * (ABNORMAL) HEMOGLOBIN A1C MONITORING (POCT) (05/25/2025 11:33 AM HOB GRINDER)Component ValueRef RangeTest MethodAnalysis TimePerformed AtPathologist SignaturePOC HEMOGLOBIN A1C6.2(H)<6.0 % OF TOTAL HGB107/25/2024 1:17 PM CSTGALLUP INDIAN MEDICAL CENTERComment: Any point of care results exhibiting inconsistency with the patient's clinical status should be repeated using a different testing method. Specimen (Source)Anatomical Location / LateralityCollection Method / Volume Collection TimeReceived TimeBloodBLOOD SPECIMEN / UnknownQuest Collect / Unknown 05/25/2025 11:33 AM CST05/25/2025 11:33 AM HOB GRINDER Narrative Authorizing ProviderResult TypeResult StatusBridget Shefali Harris PACHEMISTRY Final ResultPerforming OrganizationAddressCity/State/ZIP CodePhone Number [facility] [address] [place] [address], [address] [place] [address], [place] [phone] * TRICHOMONAS, CHAI, AND BACTERIAL VAGINOSIS BY HINA (05/04/2025 4:11 PM CDT) ComponentValueRef RangeTest MethodAnalysis TimePerformed AtPathologist SignatureCANDIDA SPECIESNegativeNegative, NOT Cjbadchr52/28/2025 1:17 PM CDT [facility] LABORATORYCANDIDA GLABRATANegativeNegative 05/05/2025 1:17 PM [facility]TR[facility] LABORATORYTRICHOMONAS VVANegativeNegative, NOT Simrgoal76/28/2025 1:17 PM [facility]TRAL LABORATORYBACTERIAL VAGINOSISNegativeNegative, NOT Detected 05/05/2025 1:17 PM [facility]TRAL LABORATORYSpecimen (Source)Anatomical Location / LateralityCollection Method / VolumeCollection TimeReceived TimeOtherVAGINAL SWAB / UnknownNon-Blood / Mqimurw2105/04/2025 4:11 PM CDT1 4:12 PM CDT Narrative Authorizing ProviderResult TypeResult StatusAbby Sheela DAMIAN MICROBIOLOGYFinal ResultPerforming OrganizationAddressCity/State/ZIP CodePhone Number [facility] [address] [address], * (ABNORMAL) [facility] POC DIP (QUEST) (05/04/2025 4:05 PM CDT) Only the most recent of3 resultswithin the time period is included. ComponentValueRef RangeTest MethodAnalysis TimePerformed AtPathologist Signature SPECIFIC GRAVITY> OR = 1.0301.001 - 1.8170905/04/2025 4:25 PM [facility]Comment: Specific Mingus values resulted are outside the analytical measurement range of this device. Recommend repeat/additional testing as clinically indicated. PROTEIN2+(A)HJXBTLVR18/27/2025 4:25 PM [facility]ITALGLUCOSE NQFNCDRLJOIYPHJB99/27/2025 4:25 PM [facility]OSPITALKETONES TRACE(A)CIFYHKNC31/27/2025 4:25 PM [facility]ITALBILIRUBIN1+ (A)DVPMDTJC60/27/2025 4:25 PM [facility]ITALComment: A false positive may be caused by the drug Lodine. For any presumptive positive bilirubin, consider confirmation by serum bilirubin if clinically indicated. OCCULT ONHYQIGBVYMAODUBKNWKI39/27/2025 4:25 PM [facility]PITALNITRITENEGATIVENEGATIVE05/04/2025 4:25 PM [facility]ITALPH5.55.0 - 8.010 4:25 PM [facility] LEUKOCYTE XESENNTWYCUNJEQUFRYLBMCY62/27/2025 4:25 PM [facility]ITALpecimen (Source)Anatomical Location / LateralityCollection Method / VolumeCollection TimeReceived TimeUrineURINE SPECIMEN / UnknownNon-Blood / Toafvam6705/04/2025 4:05 PM CDT1 4:18 PM CDT Narrative Authorizing ProviderResult TypeResult StatusAbby Sheela Arias PAURINEFinal ResultPerforming OrganizationAddressCity/State/ZIP CodePhone Number [facility] [address] [place] [address], [place] [phone] [facility] [address] [place] [address], [place] [phone] * URINALYSIS MICROSCOPIC (05/04/2025 4:05 PM CDT) Only the most recent of3 resultswithin the time period is included. ComponentValueRef RangeTest MethodAnalysis TimePerformed AtPathologist Signature RBC0-20-2, None Seen /HPF05/04/2025 11:43 PM [facility]ENTRAL XMFWUWKQGSAPK7-78-6, 3-5, None Seen /HPF05/04/2025 11:43 PM [facility] LAB[facility]-CENTRAL LABORATORYBACTERIANone SeenNone Seen, Rare, Few Bacteria/HPF 05/04/2025 11:43 PM [facility]-CENTRAL LABORATORYEPITHELIAL CELLSFewNone Seen, Few Epi/HPF05/04/2025 11:43 PM [facility]- CENTRAL LABORATORYHYALINE CASTS0-20-2, 3-5 /LPF10 11:43 PM CDBAPTIST MEMORIAL [facility]-CENTRAL LABORATORYSpecimen (Source)Anatomical Location / LateralityCollection Method / VolumeCollection TimeReceived TimeUrineURINE SPECIMEN / UnknownNon-Blood / Emjtbfs9805/04/2025 4:05 PM CDT1 4:18 PM CDT Narrative Authorizing ProviderResult TypeResult StatusAbby Sheela DAMIANURINEFinal ResultPerforming OrganizationAddressty/State/ZIP CodePhone Number [facility] [address] [place] [address], * URINE CULTURE (05/04/2025 4:05 PM CDT) Only the most recent of3 resultswithin the time period is included. ComponentValueRef RangeTest MethodAnalysis TimePerformed AtPathologist Signature CULTURE<10,000 CFU/mL multiple trdxgldoa32/29/2025 8:41 AM CDWHITFIELD MEDICAL SUR[facility]ICAL HOSPITALCENTRAL LABORATORYSpecimen (Source)Anatomical Location / Laterality Collection Method / VolumeCollection TimeReceived TimeUrineURINE SPECIMEN / UnknownNon-Blood / Setbvjv8005/04/2025 4:05 PM CDT1 4:18 PM CDT Narrative Authorizing ProviderResult TypeResult StatusAbby Sheela DAMIAN MICROBIOLOGYFinal ResultPerforming OrganizationAddressty/State/ZIP CodePhone Number [facility] [address] [place] [address], * XR DXA BONE DENSITY 2 SITES AXIAL AND 1 SITE PERIPHERAL (08/18/2021 11:00 AM HOB GRINDER)Anatomical RegionLateralityModalityLUMBAR SPINEOtherSpecimen (Source) Anatomical Location / LateralityCollection Method / VolumeCollection Time Received Time Impressions 08/22/2021 7:44 AM HOB GRINDER Normal bone density. RECOMMENDATIONS: The National Osteoporosis Foundation recommends pharmacologic treatment for patients with T-scores of -2.5 or less, patients with prior history of fragility fractures, or patients with 10-year probability of greater than 3% at hips or greater than 20% of suffering major osteoporotic fractures. Recommend continued optimization of calcium and vitamin D intake through dietary means and/or supplementation and regular exercise. Repeat scan recommended in 5-7 years. Leticia Girard PA-C Narrative 08/22/2021 7:44 AM HOB GRINDER For Patients: Results are automatically released to your [facility] ([employer]) account once available, in compliance with federal regulations. This means that you may see your results before your provider has had a chance to review them. Please allow 2-3 business days for your provider to comment on the results. XR DXA Bone Mineral Density (BMD) EXAM LOCATION: [address] [address] PATIENT NAME: Joan Peters DATE OF : 1940 EXAM DATE: 08/18/2021 REQUESTING PROVIDER: Deb Harris PA GENDER AT : female HEIGHT: 5' 5.35 (08/03/2021) WEIGHT: ??206 lb (08/03/2021) MENOPAUSAL STATUS: Postmenopausal RACE/ETHNICITY: White RISK FACTORS: White Race CURRENT MEDICATION FOR BONE LOSS: NONE INDICATION: Screening for osteoporosis COMPARISON DATE(S): 2015 DXA scans are compared to prior studies for a patient only when the two (or more) studies were performed on the same scanner. It is not possible to compare data generated on one scanner to data from another because there are not standards in DXA equipment. This applies even if the two scanners are made by the same oven dumper. PROCEDURE: Dual-energy x-ray absorptiometry performed with routine technique. Reporting is completed in the form of a T-score. The T-score represents the standard deviation from peak bone mass based on young healthy adult. A Z-score is used for diagnosis in premenopausal women, and for men under the age of 50. FINDINGS: RESULT LUMBAR SPINE L1 - L2 ??BMD: 2.084 g/cm2 T-Score: + 6.9 Z-Score: + 7.8 Change from prior in 2016: ??Increase 14.9%. RESULTS FEMUR Left femoral neck BMD: 1.124 g/cm2 T-Score: + 0.6 Z-Score: + 2.1 Change from prior in 2016: ??Decrease 2.1%. Right femoral neck BMD: 1.147 g/cm2 T-Score: + 0.8 Z-Score: + 2.3 Change from prior in 2016: ??Increase 3.9%. Left hip BMD: 1.227 g/cm2 T-Score: + 1.7 Z-Score: + 3.0 Change from prior in 2016: ??Decrease 2.5%. Right hip BMD: 1.186 g/cm2 T-Score: + 1.4 Z-Score: + 2.7 Change from prior in 2016: ??Decrease 2.5%. RESULT FOREARM Left Forearm distal radius BMD: 0.826 g/cm2 T-Score: - 0.6 Z-Score: + 2.0 Change from prior: ??None WHO criteria: Normal: T-score at or above -1 SD Osteopenia: T-score between -1.1 and -2.4 SD Osteoporosis: T-score at or below -2.5 SD Authorizing ProviderResult TypeResult StatusBridget Shefali Harris PADEXAFinal Result from Last 3 Months or Most Recently Relevant to Health Maintenance Insurance * Guarantor: [facility]Account TypeRelation to PatientDate of BirthPhoneBilling ArhteobPtshsqpuZgaom20/01/2006 Atten: Financial Services [address] [place] [address] Advance Directives TypeDate RecordedPatient RepresentativeExplanationHealthcare Directive11/19/2012 12:33 PMHEALTHCARE DIRECTIVE 04/30/12Healthcare Eikvvxsjr72/23/2012 12:00 AM 04/30/12/reviewed 03/16/16 * Full Code (Latest Code Status on File) Date ActivatedDate InactivatedComments03/23/2017 9:10 AM03/23/2017 4:56 PM * Full Code Date ActivatedDate InactivatedComments08/18/2015 1:42 PM2 5:35 PM Care Teams Team MemberRelationshipSpecialtyStart DateEnd Date Deb Harris PA [facility] [place] [address] PCP - GeneralFamily Yjikgafr48/10/14 Soila Lozada MD [facility] [address] [facility] [address] [place] [address] [id number] Mboyohurjnf39/4/18
--- OUTSIDE RECORDS SUMMARY | 2025-06-21 11:20 | XMS_ITS | Clinical Summary ---
Author Organization [facility] Address [address] [place] [id number] Care Team Providers Care Machine Cloth Measurer Name Role Phone Dolores Briceno ANA TRANSPLANT CASE MANAGER Primary Care Pro vider Allergies Active AllergyReactionsCriticalityNoted DateCommentsSulfa AntibioticsRashLow 04/06/2011 Medications MedicationSigDispense QuantityRefillsLast FilledStart DateEnd DateStatus glimepiride (AMARYL) 1 MG tablet Take 1 mg by mouth every morning (before breakfast).Active OMEPRAZOLE PO Take 40 mg by mouth 2 times daily (before meals)Active LISINOPRIL PO Take 2.5 mg by mouth dailyActive ALPRAZOLAM PO Take 0.25 mg by mouth 3 times daily as needed for anxietyActive cyanocobalamin 1000 MCG/ML injection Inject 1 mL into the muscle every 30 daysActive Naproxen Sodium (ALEVE PO) Take 220 mg by mouth 3 times daily (with meals)Active primidone (MYSOLINE) 50 MG tablet Take 100 mg by mouth 2 times dailyActive propranolol ER (INDERAL LA) 160 MG 24 hr capsule Take 160 mg by mouth 2 times dailyActive rosuvastatin (CRESTOR) 40 MG tablet Take 40 mg by mouth At BedtimeActive metFORMIN (GLUCOPHAGE-XR) 500 MG 24 hr tablet Indications:Type 2 Diabetes MellitusTake 1,000 mg by mouth daily (with dinner) Active fluticasone (FLONASE) 50 MCG/ACT nasal spray [place] 1 spray into both nostrils daily as needed for rhinitis or allergiesActive senna-docusate (SENOKOT-S/PERICOLACE) 8.6-50 MG tablet Indications:Status post total right knee replacementTake 1 tablet by mouth 2 times daily 30 tablet 12/11/2018Active oxyCODONE-acetaminophen (PERCOCET) 5-325 MG tablet Indications:Status post total right knee replacementTake 1-2 tablets by mouth every 4 hours as needed for severe pain 60 tablet 12/11/2018Active aspirin (ASA) 325 MG EC tablet Indications:Status post total right knee replacementTake one Aspirin tab twice daily for 5 weeks. 70 tablet 12/11/2018Active Active Problems ProblemNoted DateDiagnosed DateS/P total knee kakxhjupuzfa76/05/2019Degenerative arthritis of knee02/24/2014 Social History Tobacco UseTypesPacks/DayYears UsedDateSmoking Tobacco: NeverSmokeless Tobacco: NeverAlcohol UseStandard Drinks/WeekCommentsYes0 (1 standard drink = 0.6 oz pure alcohol)2 drinks weeklyCommentsNoSex and Gender InformationValueDate RecordedSex Assigned at BirthNot on fileLegal LetCjpeek16/04/2012 3:43 AM IT GENERALIST Gender IdentityNot on fileSexual OrientationNot on file Last Filed Vital Signs Vital SignReadingTime TakenCommentsBlood Htvirjlu940/46012/14/2018 1:00 PM CDT Qfkds393612/13/2018 2:20 AM SJSLdutyarffwt56.3 ??C (99.2 ??F)12/14/2018 1:00 PM CDTRespiratory Yost668412/14/2018 7:17 AM CDTOxygen Tzrvvxadle44%12/14/2018 1:00 PM CDTInhaled Oxygen Concentration--Gphtxu59 kg (194 lb)12/11/2018 5:40 AM CDT Mliwtu769.1 cm (5' 5)12/11/2018 5:40 AM CDTBody Mass Index32.28012/11/2018 5:40 AM CDT Plan of Treatment Not on file Medical Devices ImplantedTypeAreaManufacturerDevice IdentifierShelf Expiration DateModel / Serial / LotBone Cement Simplex W/Tobramycin 6197-9-001 Implanted:Qty: 1 on 12/11/2018 [facility] BoneRight: KneeSTRYKER UBGJCGRTUPR72/30/2020 6197-9-001 / / [id number] Comp Tka Ibalance Fem Ps Enrrique Sz 6 Rt Ar-516-6r Implanted:Qty: 1 on 12/11/2018 by Emerson [facility] at [facility] Joint Component/InsertRight: SxcdUYJHQEP10/31/2023 AR-516-6R / / [id number] Comp Tka Ibalance Mod Tibial Tray Sz 5 Ar-513-T5 Implanted:Qty: 1 on 12/11/2018 by Emerson Hardin MD at [facility] Joint Component/InsertRight: CcwoFEAYRQB46/31/2023 AR-513-T5 / / [id number] Comp Ibalance Patella Dome 30x8mm Ar-504-Psb8 Implanted:Qty: 1 on 12/11/2018 by Emerson Hardin MD at [facility] Joint Component/InsertRight: TvbyNETTHWH04/31/2023 AR-504-PSB8 / / [id number] Comp Tka Ibalance Bearing Ps Sz 5 10mm Ar-513-Bf10 Implanted:Qty: 1 on 12/11/2018 by Emerson Hardin MD at [facility] Joint Component/InsertRight: XqsqOJSWJZB20/30/2019 AR-513-BF10 / / [id number] Tibial Component Triathlon Implanted:Qty: 1 on 02/24/2014 [facility]: FastCustomer11/05/[id number] / / [id number] Comp Patella Strk Triathln Tri Bd W/Pa 32mm 5554-L-320 Implanted:Qty: 1 on 02/24/2014 [facility]: KneeSElectro-Petroleum01/05/[id number]-317 / / [id number] Comp Fem Strk Triathln Cr Bd W/Pa Lt 4 5517-F-401 Implanted:Qty: 1 on 02/24/2014 [facility]: KneeSTRYm0um0u11/05/[id number]-919 / / [id number] Insert Tibial Howm Tri 4x09mm 5530-G-409 Implanted:Qty: 1 on 02/24/2014 [facility]: Allison LPCOVRUERGJ03/31/[id number]-T-835 / / [id number] Insurance * Guarantor: Joan Peters TypeRelation to PatientDate of BirthPhone Billing AddressPersonal/XiazzrIynu70/18/1941 None (Work) [address] [place] [address] Advance Directives For more information, please contact: [phone] TypeDate RecordedPatient RepresentativeExplanationAdvance Directives and Living Will03/02/2014HEALTH CARE DIRECTIVE 05-02-2012 * Full Code (Latest Code Status on File) Date ActivatedDate InactivatedComments12/11/2018 11:27 AM12/14/2018 3:44 PMQuestion AnswerCommentsCode status determined by:* Unable to determine; FULL CODE until documents or legal decision maker available * Full Code Date ActivatedDate InactivatedComments02/24/2014 5:47 PM02/27/2014 4:51 PM Care Teams Team MemberRelationshipSpecialtyStart DateEnd Date Dolores Briceno APRN TRANSPLANT CASE MANAGER [facility] [id number] [place] [address] PCP - GeneralNgrady Practitioner11/20/18
--- OUTSIDE RECORDS SUMMARY | 2025-06-21 11:20 | XMS_ITS | Clinical Summary ---
Author Organization [facility] Address [address] [place] [address] Phone Care Team Providers Care Ep Specialist Name Role Phone Deb Harris PA-C Primary Care Provider [phone] Allergies Active AllergyReactionsCriticalityNoted DateCommentsSulfa AntibioticsRashLow 04/06/2011 Medications * This document contains information received from the source organization and may not represent a complete record from that organization. MedicationSigDispense QuantityRefillsLast FilledStart DateEnd DateStatus nystatin (MYCOSTATIN) powder Fill at patient requestApply topically to affected area(s) 2 times daily if needed. Fill at swoupghmovbunm96/09/2024ctive omeprazole (PriLOSEC) [address] capsule TAKE 1 CAPSULE BY MOUTH TWICE DAILY Strength: 40 mg08/24/2023ctive propranolol LA (INDERAL LA) 160 MG 24 hr capsule Take 160 mg by mouth in the morning and 160 mg in the evening.08/24/2023ctive metFORMIN XR (GLUCOPHAGE-XR) 500 MG 24 hr tablet Take 2,000 mg by mouth 1 (one) time each day with wihtou8908/24/2023ctive ALPRAZolam (XANAX) 0.25 MG tablet Take 0.25 mg by mouth 2 (two) times a day if needed for anxiety or sleep 08/24/2023ctive benazepril (LOTENSIN) 40 MG tablet Take 40 mg by mouth in the morning.08/24/2023ctive fluticasone (FLONASE) 50 MCG/ACT nasal spray Administer 1 spray into each nostril 1 (one) time each day08/04/2022ctive glimepiride (AMARYL) 1 MG tablet Take 1 mg by mouth 1 (one) time each day before breakfastActive cyanocobalamin (VITAMIN B-12) 1000 MCG/ML injection Inject 1 mL into the shoulder, thigh, or buttocks every 30 (thirty) daysActive primidone (MYSOLINE) 50 MG tablet Take 100 mg by mouth in the morning and 100 mg at noon and 100 mg in the evening.08/28/2023ctive propranolol LA (INDERAL LA) 80 MG 24 hr capsule TAKE 1 CAPSULE BY MOUTH PRIOR TO SOCIAL SETTING LHXOWA7708/25/2023ctive rosuvastatin (CRESTOR) 40 MG tablet Take 40 mg by mouth at bed time08/09/2023ctive cholecalciferol (VITAMIN D-3) 25 MCG (1000 UT) capsule Take 1,000 Units by mouth 1 (one) time each dayActive Active Problems ProblemNoted DateDiagnosed DateStage 3a chronic kidney jqugcvv0909/24/2023 Assessment & Plan (12/18/2023 11:35 AM CDT): Improved. Back to baseline GFR. Further recommendations unnecessary. Continue current medications as ordered at this time. At minimum, annual surveillance of GFR moving forward. Malik will also be to avoid NSAID as able. We will plan to see this patient on an as-needed basis moving forward. Assessment & Plan (09/25/2023 2:13 PM CDT): Baseline creatinine 0.9-1.0 since 2009. Recent uptick in creatinine up to 1.14 with laboratories from 08/24/2023. Patient was fasting during this assay. Other electrolytes appear to be in fine condition. We will reassess blood work this/next week. I highly recommend that the patient, when blood workis done, that she is fully nonfasting and well-hydrated prior to blood work being performed. Specifically since she is on chronically administered MALCOLM inhibitor. I asked her to maintain on this medication moving forward. We will reassess blood work as noted and if improvement, further workup will not be necessary. If on the other hand there is worsening, would consider progressing towards serologic evaluation to include evaluation of autoimmunity, SPEP/immunofixation, and imaging with renal ultrasound. Finally patient was asked to limit any and all exposure to NSAIDs (all forms, including topicals) since she is also on an MALCOLM inhibitor and has clearly established hypertension. Hypertensive heart and chronic kidney disease without heart failure, with stage 1 through stage 4 chronic kidney disease, or unspecified chronic kidney disease 09/24/2023 Assessment & Plan (12/18/2023 11:35 AM CDT): Systolic blood pressures with a trusted cuff at home range anywhere between 140- 150. This is more than appropriate in a patient of advanced age. At the same instance, 1 may gather additional blood pressure improvement with weight loss. See section discussing this above. Assessment & Plan (09/25/2023 2:10 PM CDT): Blood pressure was 166/83 at her visit with PCP on 08/24/2023. Blood pressure today at her visit gvy851/88. Reasonable to continue current cares as prescribed. Especially now that we are in early in our evaluation for the kidney issue. Ideally, would recommend a systolic blood pressure to be anywhere between 140-150 in this patient of advanced age higher than average risk for falls, etc. Type 2 diabetes mellitus with diabetic chronic kidney unfhksh3409/24/2023 Overview (09/25/2023): Diagnosed and patient's fourth or fifth decade of life. No history of DMR. Assessment & Plan (12/18/2023 11:19 AM CDT): Stable. Continue current medications as being administered with metformin and glimepiride. Would knight appropriate candidate for semaglutide trial from a renal perspective. Will defer further to PCP. Assessment & Plan (09/25/2023 2:13 PM CDT): Reasonable for patient to continue metformin as ordered at this time. Would be a reasonable consideration to initiate sodium glucose transporter-2 inhibitor class of medication such as empagliflozin or dapagliflozin in this patient if an additional agent is necessary. Personal history of breast npzjyp1109/24/2023Morbid (severe) obesity due to excess ctyfqbry41/18/2024 Assessment & Plan (12/17/2023 5:15 PM CDT): Stable. Ongoing attempts at physical fitness to bring forth weight loss remain malik in the management of high blood pressure, minimizing cardiovascular risk factors, and also, preventing progression of CKD. Kqmajh1703/01/2014 Assessment & Plan (09/25/2023 2:09 PM CDT): I note a slow drop in hemoglobin. Most recent level was 11.5 in February 2023. Osteoarthritis of knee02/24/2014 Overview (09/25/2023): Status post bilateral total knee replacement Resolved Problems ProblemNoted DateDiagnosed DateResolved DateHypertensive fvwqcxih59/17/2014 4Diabetes wrggjcvi02 Immunizations ImmunizationAdministration DatesNext DueInfluenza Split High Dose Preservative Free IM04/24/2023,04/18/2022,04/12/2021SV MDKYWBVKMHR23/01/2023 Family History Medical HistoryRelationCommentsNo Known ProblemsFatherNo Known ProblemsFather's BrotherNo Known ProblemsFather's SisterNo Known ProblemsMaternal GrandfatherNo Known ProblemsMaternal GrandmotherHeart diseaseMotherHypertensionMotherNo Known ProblemsMother's BrotherStrokeMother's SisterNo Known ProblemsPaternal GrandfatherNo Known ProblemsPaternal GrandmotherCancerSisterRelationStatus CommentsFatherDeceasedFather's BrotherDeceasedFather's SisterDeceasedMaternal GrandfatherDeceasedMaternal GrandmotherDeceasedMotherDeceasedMother's Brother DeceasedMother's SisterAlivePaternal GrandfatherDeceasedPaternal Grandmother DeceasedSisterAlive Social History Tobacco UseTypesPacks/DayYears UsedDateSmoking Tobacco: NeverSmokeless Tobacco: Never Tobacco Cessation:Counseling Given: Not Answered Alcohol UseStandard Drinks/WeekCommentsYes2 (1 standard drink = 0.6 oz pure alcohol)CommentsUnknownSex and Gender InformationValueDate RecordedSex Assigned at BirthNot on fileLegal LweKoiyvx89/23/2024 1:29 PM ESTGender Identity Not on fileSexual OrientationNot on file Last Filed Vital Signs Vital SignReadingTime TakenCommentsBlood Xbrejkxi455/8906 11:14 AM CDT Csbva379812/18/2023 11:14 AM CDTTemperature--Respiratory Rate--Oxygen Saturation 97%09/25/2023 1:04 PM CDTInhaled Oxygen Concentration--Wtcjos66.7 kg (200 lb) 12/18/2023 11:14 AM ROVMkflak994.1 cm (5' 5)12/18/2023 11:14 AM CDTBody Mass Index33.28012/18/2023 11:14 AM CDT Plan of Treatment Health MaintenanceDue DateLast DoneCommentsPneumococcal Vaccine: 50+ Years (1 of 2 - PCV)2Diabetes: Ophthalmology Exam08/31/2023iabetes: Pedal Pulse Oqdqqbm9808/31/2023iabetes: Sensory Foot Exam08/31/2023iabetes: Visual Foot Exam 08/31/2023iabetes: Hemoglobin A1C502/11/2024, 08/24/2023Influenza Vaccine (#1)510/, 04/18/2022, 04/12/2021Hepatitis B VaccineAged OutNo longer eligible based on patient's age to complete this topic Insurance Care Teams Team MemberRelationshipSpecialtyStart DateEnd Date Deb Harris PA-C [address] [place] [address] PCP - GeneralPhysician Assistant09/19/23
--- NOTE | 2025-06-21 11:33 | ED.FALL ---
HPI - Fall General Time Seen by Provider: 11:33 Date Seen: 06/21/25 Chief Complaint: Fall/Minor Trauma Stated Complaint: fall Time Seen by Provider: 06/21/25 11:20 Source: patient, family, EMS and RN notes reviewed Mode of arrival: EMS Limitations: no limitations History of Present Illness HPI Narrative: This 84 year female is brought in by EMS for a fall at home. She states the events or fuzzy, she does not feel she tripped, does not think she hit her head, is having no head pain or headache. She could not get up, has pain in her pelvis and both hips if she tries to move. She states she was not caring anything. She has no chest pain, no neck or back pain, no abdominal pain. She has not been sick with anything, no cough or cold symptoms, no nausea or vomiting. She could not get back up, fell yesterday afternoon, laid on the ground until she could yell at her phone and get [facility] to respond. She eventually got EMS to her house today. Both hips hurt with movement, her pelvis hurts. MD complaint: fall Related Data Home Medications ?Medication ?Instructions ?Recorded ?Confirmed alprazolam 0.25 mg tablet 0.25 mg PO BID PRN 04/16/23 06/21/25 benazepril 40 mg tablet 40 mg PO DAILY 04/16/23 06/21/25 glimepiride 1 mg tablet 1 mg PO DAILY 04/16/23 06/21/25 metformin 500 mg tablet,extended 1,000 mg PO BID 04/16/23 06/21/25 release 24 hr omeprazole 40 mg capsule,delayed 40 mg PO BID 04/16/23 06/21/25 release primidone 50 mg tablet 100 mg PO TID 04/16/23 06/21/25 propranolol 10 mg tablet 10 - 20 mg PO PRN 04/16/23 06/16/24 rosuvastatin 40 mg tablet 40 mg PO HS 04/16/23 06/21/25 nitroglycerin 0.4 mg sublingual 0.4 mg sublingual Q5M PRN 06/08/23 06/21/25 tablet cyanocobalamin (vitamin B-12) 1,000 mcg IM Q28D 06/16/24 06/16/24 1,000 mcg/mL injection solution (Dodex) propranolol 160 mg capsule,24 160 mg PO DAILY 06/16/24 06/16/24 hr,extended release amlodipine 5 mg tablet 5 mg PO DAILY 06/21/25 06/21/25 ezetimibe 10 mg tablet 10 mg PO DAILY 06/21/25 06/21/25 propranolol 80 mg capsule,24 80 mg PO 06/21/25 hr,extended release Previous Rx's ?Medication ?Instructions ?Recorded acetaminophen 650 mg 1,300 mg (2 x 650 mg) PO Q8H #90 06/17/24 tablet,extended release tabs Allergies Allergy/AdvReac Type Severity Reaction Status Date / Time Sulfa (Sulfonamide Allergy Verified 06/21/25 11:33 Antibiotics) Review of Systems Status of ROS: Reports: 10 or more systems reviewed and unremarkable except as noted in History and below [facility] Medical History (Updated 06/21/25 @ 14:46 by Diego Blood MD) Osteoporosis ?M81.0 - Age-related osteoporosis without current pathological fracture (ICD-10) Heart failure with preserved ejection fraction ?I50.30 - Unspecified diastolic (congestive) heart failure (ICD-10) History of melanoma ?Z85.820 - Personal history of malignant melanoma of skin (ICD-10) Lumbar radiculopathy ?M54.16 - Radiculopathy, lumbar region (ICD-10) DDD (degenerative disc disease), lumbar ?M51.369 - Other intervertebral disc degeneration, lumbar region without mention of lumbar back pain or lower extremity pain (ICD-10) HTN (hypertension) ?I10 - Essential (primary) hypertension (ICD-10) Adjustment disorder with anxiety ?F43.22 - Adjustment disorder with anxiety (ICD-10) HLD (hyperlipidemia) ?E78.5 - Hyperlipidemia, unspecified (ICD-10) Essential tremor ?G25.0 - Essential tremor (ICD-10) History of breast cancer ?Z85.3 - Personal history of malignant neoplasm of breast (ICD-10) Surgical History History of hysterectomy ?Z90.710 - Acquired absence of both cervix and uterus (ICD-10) S/P total knee arthroplasty ?Z96.659 - Presence of unspecified artificial knee joint (ICD-10) Family History Mother Heart disease Father Alcohol dependence Social History Narrative: She lives alone in a town house in [place]. Her townhouse is on 1 level without stairs and his handicap assessable. Closest family is her son Cruz who lives in [place] and her sister Roberta who lives in [place]. They are both designated healthcare power of assistant county attorney. Code status is full code for witnessed arrest. She normally walks without an assistive device. What is your current living situation?: I presently have a place to live Problems where you live: no known problems Problems where you live details: N/A In the past 12 months, utilities in danger of being shut off: no In past 12 months, lack of transportation kept you from medical appts, meetings, work, or getting things needed for daily living: no In the past 12 mos, have been you worried that your food would run out before you had money to buy more?: never true In the past 12 mos, the food you bought just didn't last and you didn't have money to buy more?: never true Highest level of school completed/degree received: Associate degree: occupational, technical, vocational program Smoking Status: Former smoker Do you use any of these nicotine containing products: None How often do you have a drink containing alcohol: monthly or less How often do you have six or more drinks on one occasion: Never AUDIT-C Alcohol total score: 1 Non-prescribed substance use: denies use How often does anyone, including family, friends and others, physically hurt you: never How often does anyone, including family, friends and others, insult or talk down to you: never How often does anyone, including family, friends and others, threaten you with harm: never How often does anyone, including family, friends and others, scream or curse at you: never service: No Exam Const: Vital Signs, click to edit/add: Vital Signs - 24 hr 06/21/25 11:28 06/21/25 11:28 06/21/25 11:30 Temperature 96.4 F L Pulse Rate 85 81 Pulse Rate [Right Pulse Oximeter] 79 Respiratory Rate 18 Blood Pressure Blood Pressure [Ri ght Arm] Blood Pressure [Ri ght Upper Arm] 123/97 H Pulse Oximetry 98 98 99 Oxygen Delivery Me thod Room Air Oxygen Flow Rate 06/21/25 11:31 06/21/25 11:45 06/21/25 12:22 Temperature Pulse Rate 83 82 Pulse Rate [Right Pulse Oximeter] Respiratory Rate 14 15 Blood Pressure 144/125 H 184/105 H Blood Pressure [Ri ght Arm] Blood Pressure [Ri ght Upper Arm] Pulse Oximetry 98 99 Oxygen Delivery Me thod Oxygen Flow Rate 06/21/25 12:23 06/21/25 12:30 06/21/25 12:31 Temperature Pulse Rate 206 H 78 81 Pulse Rate [Right Pulse Oximeter] Respiratory Rate 20 18 21 Blood Pressure 185/96 H Blood Pressure [Ri ght Arm] Blood Pressure [Ri ght Upper Arm] Pulse Oximetry 90 97 97 Oxygen Delivery Me thod Oxygen Flow Rate 06/21/25 12:45 06/21/25 13:00 06/21/25 13:02 Temperature Pulse Rate 80 77 79 Pulse Rate [Right Pulse Oximeter] Respiratory Rate 17 21 18 Blood Pressure 177/83 H Blood Pressure [Ri ght Arm] Blood Pressure [Ri ght Upper Arm] Pulse Oximetry 97 96 94 Oxygen Delivery Me thod Oxygen Flow Rate 06/21/25 13:15 06/21/25 13:30 06/21/25 13:31 Temperature Pulse Rate 83 78 81 Pulse Rate [Right Pulse Oximeter] Respiratory Rate 19 19 16 Blood Pressure 173/75 H Blood Pressure [Ri ght Arm] Blood Pressure [Ri ght Upper Arm] Pulse Oximetry 97 97 97 Oxygen Delivery Me thod Oxygen Flow Rate 06/21/25 13:45 06/21/25 14:00 06/21/25 14:02 Temperature Pulse Rate 80 76 78 Pulse Rate [Right Pulse Oximeter] Respiratory Rate 14 21 15 Blood Pressure 199/87 H Blood Pressure [Ri ght Arm] Blood Pressure [Ri ght Upper Arm] Pulse Oximetry 95 95 95 Oxygen Delivery Me thod Oxygen Flow Rate 06/21/25 14:03 06/21/25 14:15 06/21/25 14:30 Temperature Pulse Rate 77 81 80 Pulse Rate [Right Pulse Oximeter] Respiratory Rate 15 19 17 Blood Pressure Blood Pressure [Ri ght Arm] Blood Pressure [Ri ght Upper Arm] Pulse Oximetry 97 95 96 Oxygen Delivery Me thod Oxygen Flow Rate 06/21/25 14:32 06/21/25 14:45 06/21/25 17:15 Temperature 98.9 F Pulse Rate 83 81 72 Pulse Rate [Right Pulse Oximeter] Respiratory Rate 17 19 16 Blood Pressure 152/138 H 92/46 L Blood Pressure [Ri ght Arm] Blood Pressure [Ri ght Upper Arm] Pulse Oximetry 96 95 92 Oxygen Delivery Me thod Room Air Oxygen Flow Rate 06/21/25 17:20 06/21/25 17:25 06/21/25 17:30 Temperature Pulse Rate 71 68 66 Pulse Rate [Right Pulse Oximeter] Respiratory Rate 16 16 16 Blood Pressure 115/56 L 103/48 L 118/51 L Blood Pressure [Ri ght Arm] Blood Pressure [Ri ght Upper Arm] Pulse Oximetry 93 94 95 Oxygen Delivery Me thod Oxygen Flow Rate 06/21/25 17:35 06/21/25 17:40 06/21/25 17:45 Temperature 99.0 F Pulse Rate 66 67 65 Pulse Rate [Right Pulse Oximeter] Respiratory Rate 16 16 16 Blood Pressure 119/48 L 127/52 L 107/57 L Blood Pressure [Ri ght Arm] Blood Pressure [Ri ght Upper Arm] Pulse Oximetry 93 93 93 Oxygen Delivery Me thod Room Air Oxygen Flow Rate 06/21/25 17:55 06/21/25 18:00 Temperature 96.5 F L 95.6 F L Pulse Rate Pulse Rate [Right Pulse Oximeter] 74 73 Respiratory Rate 12 Blood Pressure Blood Pressure [Ri ght Arm] 126/56 L 126/56 L Blood Pressure [Ri ght Upper Arm] Pulse Oximetry 90 Oxygen Delivery Me thod Nasal Cannula Nasal Cannula Oxygen Flow Rate 2 2 This 84-year-old female is alert, interactive, no apparent distress lying in exam bed in room 6. She was brought in by EMS. Vitals are reviewed. Her speech is normal, GCS is 15/15. No complaint of central neck or back pain. Sclera clear, conjugate gaze. Symmetrical facial function, lips appear dry, tongue without any bite meehan, dentition are dry but intact. No oral pharyngeal trauma noted. Neck has good range of motion without pain at this time. She has no masses, no thyromegaly masses or nodules. She is lying flat. Breathing easily on room air, no tachypnea, lungs clear at the axilla and anteriorly. Slipping my hand behind her, no point tenderness over her back or posterior thorax. Abdomen is soft, nontender, nondistended, no organomegaly, rebound or guarding. Palpating over both greater trochanters, compression on her pelvis causes pain. Gentle log rolling of her lower extremities does not cause her any significant discomfort but she states she can feel it in her pelvis. She has no visible deformities of her legs, legs feel cool but good peripheral pulses, normal sensation. She does not have any pain on palpation of the thighs, knees, lower extremities, ankles, feet or toes. She has no noted focal deficit in her exam. Hands are little bit tremulous bilaterally at this time. Documenting provider has reviewed patient's vital signs: yes Course Course ED Course: Events seem to be unclear for this patient as to why she fell. Will do a head CT and cervical spine CT. We are going to get one-view chest x-ray while she is over an x-ray as well as bilateral hips with pelvis. Will initiate an IV, have an EKG and get full complement of labs. Will consider infectious etiology like COVID, influenza or RSV on triple viral swab. It sounds as if she may have a pelvic fracture but will also rule out hip fracture. Will look at metabolic etiologies for her fall as well. Will get a troponin I and EKG. Will initiate a L of IV fluids as this patient has been down since yesterday afternoon. Will obviously be doing a CK looking for rhabdomyolysis. Reevaluation(s) Time of Reevaluation #1: 11:55 Reevaluation #1: Stop by briefly to meet family that was here, reviewed that patient is over getting imaging, will probably be an x-ray for a while. Patient lives independently in a single level town home. They agree that she does not have recollection or reason for her fall. Reviewed with them I do have concerns by her history and exam for pelvic fracture, will also be looking at her hips. We discussed need to consider underlying etiology for the fall like arrhythmia, heart issues, infection, metabolic problems. Time of Reevaluation #2: 12:20 Reevaluation #2: Did briefly. I left them know that there was a right hip fracture on imaging. The hip imaging is all that I have reviewed personally at this time. We need to look at all of her labs, but they are aware that we do see a right hip fracture. Consultations Consultation #1: Dr. Blood is here to see the patient. All the labs are not back yet as far as UA, triple viral swab and chemistries. 1:17 p.m.: Did update Dr. Adams on the CK just being minimally elevated, certainly not concerning at this time. Her troponin is normal, chemistries reassuring. Still waiting on the triple viral swab and the urinalysis. I have asked nursing staff to place a Dejesus on this patient given her hip fracture and immobility at this time. We have paged Orthopedics. Time: 13:06 Consultation #2: Have spoken with Orthopedics. They will be doing this hip fracture hopefully shortly, patient has been NPO since yesterday. Dr. Blood is here and agrees with surgical clearance. Time: 13:39 Vital Signs Vital signs: Initial Vital Signs Temperature 96.4 F L 06/21/25 11:28 Temperature Source Temporal Artery Scan 06/21/25 11:28 Pulse Rate 85 06/21/25 11:28 Pulse Rhythm Regular 06/21/25 11:28 Pulse Strength 3+ Normal 06/21/25 11:28 Respiratory Rate 18 06/21/25 11:28 Blood Pressure 123/97 H 06/21/25 11:28 Blood Pressure Mean 105 06/21/25 11:28 Blood Pressure Position Sitting 06/21/25 11:28 Pulse Oximetry 98 06/21/25 11:28 Oxygen Delivery Method Room Air 06/21/25 11:28 Vital Signs Temperature 96.4 F L 06/21/25 11:28 Pulse Rate 85 06/21/25 11:28 Respiratory Rate 18 06/21/25 11:28 Blood Pressure 123/97 H 06/21/25 11:28 Pulse Oximetry 98 06/21/25 11:28 Oxygen Delivery Method Room Air 06/21/25 11:28 Temperature 97.5 F L 06/21/25 19:15 Pulse Rate 72 06/21/25 19:30 Respiratory Rate 16 06/21/25 19:30 Blood Pressure 147/59 H 06/21/25 19:30 Pulse Oximetry 97 06/21/25 19:30 Oxygen Delivery Method Room Air 06/21/25 19:30 Oxygen Flow Rate 2 06/21/25 18:45 Medications Administered Medications: Generic Name Dose Route Start Last Admin Trade Name Freq PRN Reason Stop Dose Admin Hydromorphone HCl 0.2 - 0.5 mg 06/21/25 18:10 06/21/25 18:48 Hydromorphone 0.5 Mg/0.5 Ml Inj IVP 0.5 mg Q2H PRN Administration Pain Lactated Ringer's 1,000 mls @ 125 mls/hr 06/21/25 15:39 06/21/25 17:46 Lactated Ringers 1000 Ml IV 125 mls/hr .Q8H CARA Infusion Insulin Aspart 0 unit 06/21/25 17:30 06/21/25 21:53 Insulin Aspart 100 Unit/Ml SUBCUT Not Given ACHS [facility] Protocol Omeprazole 40 mg 06/21/25 21:00 06/21/25 21:37 Omeprazole [address] PO 40 mg BID CARA Administration Oxycodone HCl 2.5 - 10 mg 06/21/25 18:10 06/21/25 21:38 Oxycodone 5 Mg Tablet PO 5 mg Q2H PRN Administration Pain Primidone 100 mg 06/21/25 15:39 06/21/25 21:37 Primidone 50 Mg Tablet PO 100 mg TID CARA Administration Propranolol HCl 160 mg 06/21/25 21:00 06/21/25 21:36 Propranolol Er 80 Mg Cap PO 160 mg BID CARA Administration Rosuvastatin Calcium 40 mg 06/21/25 21:00 06/21/25 21:37 Rosuvastatin Calcium 10 Mg Tablet PO 40 mg HS CARA Administration Sennosides 2 tab 06/21/25 21:00 06/21/25 21:37 Sennosides 1 Tab Tablet PO 2 tab BID CARA Administration Discontinued Medications Generic Name Dose Route Start Last Admin Trade Name Reinaldo PRN Reason Stop Dose Admin Cefazolin Sodium 2 gm 06/21/25 16:01 06/21/25 15:30 Cefazolin 2 Gm Inj IVP 06/21/25 16:02 2 gm ONCE ONE Administration Fentanyl 25 mcg 06/21/25 12:50 06/21/25 13:00 Fentanyl 100 Mcg/2 Ml Inj IVP 25 mcg Q2H PRN Administration Sodium Chloride 1,000 mls @ 500 mls/hr 06/21/25 11:40 06/21/25 12:40 0.9 % Sodium Chloride 1000 Ml IV 06/21/25 13:39 500 mls/hr .Q2H CARA Administration Ondansetron HCl 4 mg 06/21/25 12:50 06/21/25 12:57 Ondansetron 2 Mg/Ml Inj IVP 06/21/25 12:51 4 mg ONCE ONE Administration Tranexamic Acid 1,000 mg 06/21/25 16:02 06/21/25 15:40 Tranexamic Acid 100 Mg/Ml Inj IV 06/21/25 16:03 1,000 mg ONCE ONE Administration MDM - Fall Lab Data Attestation: I reviewed the patient's lab results. Labs: Lab Results 06/21/25 06/21/25 06/21/25 Range/Units 11:42 12:30 14:00 WBC 11.41 H (4.50-11.00) K/uL RBC 3.66 L (4.00-5.20) m/uL Hgb 11.2 L (12.0-16.0) gm/dL Hct 33.4 (33.0-51.0) % MCV 91 (80-100) fL MCH 31 (26-34) pg MCHC 34 (32-36) gm/dL RDW Coeff of Aimee 13.4 (11.5-15.5) % Plt Count 232 (140-440) K/uL Neut % (Auto) 84.9 H (42.0-72.0) % Lymph % (Auto) 7.0 L (20-44) % [place] % (Auto) 7.4 (0.0-11.0) % Eos % (Auto) 0.0 (0.0-7.0) % Baso % (Auto) 0.3 (0.0-3.0) % Neut # (Auto) 9.70 H (1.7-7.0) K/uL Lymph # (Auto) 0.80 L (0.90-2.90) K/uL [place] # (Auto) 0.80 (0.00-0.90) K/UL Eos # (Auto) 0.00 (0.00-0.50) K/uL Baso # (Auto) 0.00 (0.00-0.30) K/uL Abs Immat Gran (auto) 0.00 (0.00-0.30) K/uL Imm/Tot Granulo (auto) 0.4 % Sodium 134 L (135-149) mmol/L Potassium 4.3 (3.6-5.1) mmol/L Chloride 100 (96-114) mmol/L Carbon Dioxide 27 (20-32) mmol/L Anion Gap 7 (7-15) mEq/L BUN 14 (7-30) mg/dL Creatinine 0.8 (0.5-1.5) mg/dL Estimated GFR 74 ml/min Glucose 214 H (60-115) mg/dL Lactate 1.9 (0.5-1.9) mmol/L Calcium 9.1 (8.4-10.6) mg/dL Total Bilirubin 0.9 (0.1-1.5) mg/dL AST 34 (12-35) U/L ALT 26 (4-35) U/L Alkaline Phosphatase 86 (40-150) U/L Total Creatine Kinase 261 H (41-117) U/L Troponin I < 0.01 (0.01-0.04) ng/mL NT-Pro-B Natriuret Pep 1140 H (See Note) pg/mL Total Protein 7.3 (6.0-8.3) g/dL Albumin 4.5 (3.3-5.0) g/dL Urine Color Yellow (Yellow) Urine Appearance Clear (Clear) Urine pH 6.0 (5.0-8.5) Ur Specific [place] 1.025 (1.000-1.030) Urine Protein 3+ A (Negative) Urine Glucose (UA) Trace A (Negative) Urine Ketones 1+ A (Negative) Urine Blood 2+ A (Negative) Urine Nitrite Negative (Negative) Urine Bilirubin Negative (Negative) Urine Urobilinogen 0.2 (0.2-1.0) Ur Leukocyte Esterase Negative (Negative) Urine RBC 2-5 A (0-2) Urine WBC 2-5 (0-5) Ur Squamous Epith Cells Few (None-Few) Urine Bacteria Few A (None) Coarse Granular Casts Few A (None) Urine Opiates Screen Negative (Negative) Ur Oxycodone Screen Negative (Negative) Urine Methadone Screen Negative (Negative) Ur Barbiturates Screen POSITIVE A (Negative) U Tricyclic Antidepress Negative (Negative) Ur Phencyclidine Scrn Negative (Negative) Ur Amphetamines Screen Negative (Negative) U Methamphetamines Scrn Negative (Negative) U Benzodiazepines Scrn Negative (Negative) Urine Cocaine Screen Negative (Negative) U Marijuana (THC) Screen Negative (Negative) Ur Drug Screen Comment See Note Ethyl Alcohol < 0.01 (0.01-0.03) % SARS-CoV-2 (PCR) Negative SARS-CoV-2 (Negative) Influenza Type A (PCR) Negative PCR FLU A (Negative) Influenza Type B (PCR) Negative PCR FLU B (Negative) RSV (PCR) Negative PCR RSV (Negative) Lab Acknowledgement 06/21/25 Range/Units 15:39 WBC (4.50-11.00) K/uL RBC (4.00-5.20) m/uL Hgb (12.0-16.0) gm/dL Hct (33.0-51.0) % MCV (80-100) fL MCH (26-34) pg MCHC (32-36) gm/dL RDW Coeff of Aimee (11.5-15.5) % Plt Count (140-440) K/uL Neut % (Auto) (42.0-72.0) % Lymph % (Auto) (20-44) % [place] % (Auto) (0.0-11.0) % Eos % (Auto) (0.0-7.0) % Baso % (Auto) (0.0-3.0) % Neut # (Auto) (1.7-7.0) K/uL Lymph # (Auto) (0.90-2.90) K/uL [place] # (Auto) (0.00-0.90) K/UL Eos # (Auto) (0.00-0.50) K/uL Baso # (Auto) (0.00-0.30) K/uL Abs Immat Gran (auto) (0.00-0.30) K/uL Imm/Tot Granulo (auto) % Sodium (135-149) mmol/L Potassium (3.6-5.1) mmol/L Chloride (96-114) mmol/L Carbon Dioxide (20-32) mmol/L Anion Gap (7-15) mEq/L BUN (7-30) mg/dL Creatinine (0.5-1.5) mg/dL Estimated GFR ml/min Glucose (60-115) mg/dL Lactate (0.5-1.9) mmol/L Calcium (8.4-10.6) mg/dL Total Bilirubin (0.1-1.5) mg/dL AST (12-35) U/L ALT (4-35) U/L Alkaline Phosphatase (40-150) U/L Total Creatine Kinase (41-117) U/L Troponin I (0.01-0.04) ng/mL NT-Pro-B Natriuret Pep (See Note) pg/mL Total Protein (6.0-8.3) g/dL Albumin (3.3-5.0) g/dL Urine Color (Yellow) Urine Appearance (Clear) Urine pH (5.0-8.5) Ur Specific [place] (1.000-1.030) Urine Protein (Negative) Urine Glucose (UA) (Negative) Urine Ketones (Negative) Urine Blood (Negative) Urine Nitrite (Negative) Urine Bilirubin (Negative) Urine Urobilinogen (0.2-1.0) Ur Leukocyte Esterase (Negative) Urine RBC (0-2) Urine WBC (0-5) Ur Squamous Epith Cells (None-Few) Urine Bacteria (None) Coarse Granular Casts (None) Urine Opiates Screen (Negative) Ur Oxycodone Screen (Negative) Urine Methadone Screen (Negative) Ur Barbiturates Screen (Negative) U Tricyclic Antidepress (Negative) Ur Phencyclidine Scrn (Negative) Ur Amphetamines Screen (Negative) U Methamphetamines Scrn (Negative) U Benzodiazepines Scrn (Negative) Urine Cocaine Screen (Negative) U Marijuana (THC) Screen (Negative) Ur Drug Screen Comment Ethyl Alcohol (0.01-0.03) % SARS-CoV-2 (PCR) (Negative) Influenza Type A (PCR) (Negative) Influenza Type B (PCR) (Negative) RSV (PCR) (Negative) Lab Acknowledgement Test Added Imaging Data CT scan - head: Attestation: I have reviewed the pertinent imaging results. Radiologist's impression: Patient: CELIO SANTILLAN Facility:?[facility] Patient ID:?[id number] Site Patient ID:?[id number]. Site :?[id number] Study:?CT-Head WO-06/21/2025 12:19:37 PM Ordering Physician:Jose Epperson Final Report: INDICATION: Fall. TECHNIQUE: CT of the head without contrast. Coronal and sagittal reformats are included. COMPARISON: None. FINDINGS: No acute intracranial hemorrhage. No mass effect or midline shift. No hydrocephalus or extra-axial collections. Scattered white matter hypoattenuation, typical for chronic microvascular ischemic change. Mild generalized parenchymal volume loss. No acute osseous abnormalities. Mastoid air cells and paranasal sinuses are clear. Normal soft tissues. IMPRESSION: IMPRESSION: 1. No acute intracranial abnormalities. Please note that all CT scans at this facility use dose modulation, iterative reconstruction, and/or weight-based dosing when appropriate to reduce radiation dose to as low as reasonably achievable. Dictated by Jaspreet Thomas MD @ 06/21/2025 12:23:16 PM (Electronic Signature) CT cervical spine: Attestation: I have reviewed the pertinent imaging results. Radiologist's impression: Patient: CELIO SANTILLAN Facility:?[facility] Patient ID:?[id number] Site Patient ID:?[id number]. Site :?[id number] Study:?CT-Spine Cervical WO-06/21/2025 12:19:51 PM Ordering Physician:?Misty Epperson Final Report: INDICATION: Fall/trauma. TECHNIQUE: CT of the cervical spine without contrast. Coronal and sagittal reformats are included. COMPARISON: None. FINDINGS: Fractures and other acute findings: None. Hardware: None. Spinal alignment: Mild lower cervical kyphosis. Degenerative anterolisthesis C4-5 and C7-T1. Significant cervical spondylosis: Advanced disc degeneration C5-6, C6-7 and C7-T1. Bulky C6-7 disc osteophyte complex contributes to at least mild spinal canal stenosis. Multilevel uncovertebral and facet arthrosis with high-grade neural foraminal stenosis C5-6 on the right and C6-7 on the right. Paraspinal soft tissues and imaged lungs: Within normal limits. IMPRESSION: 1. No acute fracture or traumatic malalignment of the cervical spine. Please note that all CT scans at this facility use dose modulation, iterative reconstruction, and/or weight-based dosing when appropriate to reduce radiation dose to as low as reasonably achievable. Dictated by Jaspreet Thomas MD @ 06/21/2025 12:27:14 PM (Electronic Signature) Chest x-ray: Attestation: I have reviewed the pertinent imaging results. My impression: Did visualize her chest x-ray, do not appreciate any congestive changes, no pleural effusion, no traumatic change. Have reviewed Radiology read. Radiologist's impression: Patient: CELIO SANTILLAN Facility:?[facility] Patient ID:?[id number] Site Patient ID:?[id number]. Site :?[id number] Study:?XRay-Chest 1V SUPINE-06/21/2025 12:20:12 PM Ordering Physician:?Misty Epperson Final Report: Indication: Fall. Technique: Frontal chest radiograph. Comparison: None. Findings: Lungs are clear. No consolidation, effusion or pneumothorax. Cardiomediastinal silhouette is within normal limits. No significant osseous or soft tissue findings. Impression: 1. No acute cardiopulmonary process. Dictated by Jaspreet Thomas MD @ 06/21/2025 1:35:01 PM (Electronic Signature) XR pelvis and bilateral hips: Attestation: I have reviewed the pertinent imaging results. My impression: Radiology saw the right hip fracture on the pelvic view, change imaging ordered to just be the pelvis and right hip which I am fine with. There is a intratrochanteric hip fracture. Have reviewed radiology reading. Radiologist's impression: Patient: CELIO SANTILLAN Facility:?[facility] Patient ID:?[id number] Site Patient ID:?[id number]. Site :?[id number] Study:?XRay-Hip Right 2V HIP WITH PELVIS-06/21/2025 12:22:06 PM Ordering Physician:?Misty Epperson Final Report: INDICATION: Posttraumatic pain. COMPARISON: None available. TECHNIQUE: AP pelvis and two views right hip. FINDINGS/IMPRESSION: Comminuted right intertrochanteric hip fracture. Dictated by Chuck Sam MD @ 06/21/2025 1:35:39 PM (Electronic Signature) ECG Data Attestation: I personally reviewed and interpreted this ECG as follows: (Sinus rhythm, P-waves are small, do think that this is sinus rhythm with prolonged SD interval. The rate is quite regular. Rate is 79. There is artifact but do not appreciate any acute ischemia or infarct. ) ECG interpretation date: 06/21/25 ECG interpretation time: 13:07 Prior ECG tracings: available for review Discharge Plan Discharge Clinical Impression: Fall Qualifiers: Encounter type: initial encounter Qualified Code(s): W19.XXXA - Unspecified fall, initial encounter Intertrochanteric fracture of right hip Qualifiers: Encounter type: initial encounter Fracture type: closed Fracture alignment: nondisplaced Qualified Code(s): S72.144A - Nondisplaced intertrochanteric fracture of right femur, initial encounter for closed fracture Patient Disposition: XFER to OR
--- NOTE | 2025-06-21 11:37 | CRLHL7_ITS ---
For Patients: As a result of the Cures Act, medical imaging exams and procedure reports are released immediately into your electronic medical record. You may view this report before your referring provider. If you have questions, please contact your health care provider. INDICATION: Posttraumatic pain. COMPARISON: None available. TECHNIQUE: AP pelvis and two views right hip. FINDINGS/IMPRESSION: Comminuted right intertrochanteric hip fracture. Dictated by Chuck Sam MD @ 06/21/2025 1:35:39 PM (Electronically Signed)
--- NOTE | 2025-06-21 11:37 | CRLHL7_ITS ---
For Patients: As a result of the Century Cures Act, medical imaging exams and procedure reports are released immediately into your electronic medical record. You may view this report before your referring provider. If you have questions, please contact your health care provider. Indication: Fall. Technique: Frontal chest radiograph. Comparison: None. Findings: Lungs are clear. No consolidation, effusion or pneumothorax. Cardiomediastinal silhouette is within normal limits. No significant osseous or soft tissue findings. Impression: 1. No acute cardiopulmonary process. Dictated by Jaspreet Thomas MD @ 06/21/2025 1:35:01 PM (Electronically Signed)
--- NOTE | 2025-06-21 11:38 | CRLHL7_ITS ---
For Patients: As a result of the Cures Act, medical imaging exams and procedure reports are released immediately into your electronic medical record. You may view this report before your referring provider. If you have questions, please contact your health care provider. INDICATION: Fall/trauma. TECHNIQUE: CT of the cervical spine without contrast. Coronal and sagittal reformats are included. COMPARISON: None. FINDINGS: Fractures and other acute findings: None. Hardware: None. Spinal alignment: Mild lower cervical kyphosis. Degenerative anterolisthesis C4-5 and C7-T1. Significant cervical spondylosis: Advanced disc degeneration C5-6, C6-7 and C7-T1. Bulky C6-7 disc osteophyte complex contributes to at least mild spinal canal stenosis. Multilevel uncovertebral and facet arthrosis with high-grade neural foraminal stenosis C5-6 on the right and C6-7 on the right. Paraspinal soft tissues and imaged lungs: Within normal limits. IMPRESSION: 1. No acute fracture or traumatic malalignment of the cervical spine. Please note that all CT scans at this facility use dose modulation, iterative reconstruction, and/or weight-based dosing when appropriate to reduce radiation dose to as low as reasonably achievable. Dictated by Jaspreet Thomas MD @ 06/21/2025 12:27:14 PM (Electronically Signed)
--- NOTE | 2025-06-21 11:38 | CRLHL7_ITS ---
For Patients: As a result of the Century Cures Act, medical imaging exams and procedure reports are released immediately into your electronic medical record. You may view this report before your referring provider. If you have questions, please contact your health care provider. INDICATION: Fall. TECHNIQUE: CT of the head without contrast. Coronal and sagittal reformats are included. COMPARISON: None. FINDINGS: No acute intracranial hemorrhage. No mass effect or midline shift. No hydrocephalus or extra-axial collections. Scattered white matter hypoattenuation, typical for chronic microvascular ischemic change. Mild generalized parenchymal volume loss. No acute osseous abnormalities. Mastoid air cells and paranasal sinuses are clear. Normal soft tissues. IMPRESSION: IMPRESSION: 1. No acute intracranial abnormalities. Please note that all CT scans at this facility use dose modulation, iterative reconstruction, and/or weight-based dosing when appropriate to reduce radiation dose to as low as reasonably achievable. Dictated by Jaspreet Thomas MD @ 06/21/2025 12:23:16 PM (Electronically Signed)
[2025-06-21 12:40] LABS: Lactate* 1.9 mmol/L (0.5-1.9)
[2025-06-21 12:42] LABS: Hematocrit* 33.4 % (33.0-51.0); Hemoglobin* 11.2 gm/dL (12.0-16.0); Immature Granulocytes Pct Auto 0.4 %; Lymphocytes Absolute Auto 0.80 K/uL (0.90-2.90); Mean Corpuscular HGB Conc 34 gm/dL (32-36); Mean Corpuscular Hemoglobin 31 pg (26-34); Mean Corpuscular Volume 91 fL (80-100); RDW Coefficient of Variation % 13.4 % (11.5-15.5); Red Blood Count* 3.66 m/uL (4.00-5.20); White Blood Count* 11.41 K/uL (4.50-11.00)
[2025-06-21 12:48] LABS: Immature Granulocytes Abs Auto 0.00 K/uL (0.00-0.30); Slide Review Reflex No
[2025-06-21 12:57] LABS: Albumin* 4.5 g/dL (3.3-5.0); Chloride* 100 mmol/L (96-114); Potassium* 4.3 mmol/L (3.6-5.1); Sodium* 134 mmol/L (135-149)
[2025-06-21] MEDS: ONDANSETRON 2 MG/ML inj 4 MG IVP (12:57)
[2025-06-21 12:59] LABS: Blood Urea Nitrogen* 14 mg/dL (7-30); Creatinine* 0.8 mg/dL (0.5-1.5); Estimated Glomerular Filt Rate 74 ml/min
[2025-06-21 13:00] LABS: Alanine Aminotransferase* 26 U/L (4-35); Alkaline Phosphatase* 86 U/L (40-150); Anion Gap 7 mEq/L (7-15); Aspartate Amino Transferase* 34 U/L (12-35); Bilirubin Total* 0.9 mg/dL (0.1-1.5); Calcium* 9.1 mg/dL (8.4-10.6); Carbon Dioxide* 27 mmol/L (20-32); Creatine Kinase* 261 U/L (41-117); Glucose* 214 mg/dL (60-115); Total Protein* 7.3 g/dL (6.0-8.3)
[2025-06-21 13:13] LABS: Ethanol* < 0.01 % (0.01-0.03); NT Pro B Type NatriureticPept* 1140 pg/mL (See Note)
[2025-06-21 13:25] LABS: PCR FLU A Negative PCR FLU A (Negative); PCR FLU B Negative PCR FLU B (Negative); PCR RSV Negative PCR RSV (Negative); SARS PCR* Negative SARS-CoV-2 (Negative)
[2025-06-21 14:05] LABS: Appearance Urine Clear (Clear)
--- NOTE | 2025-06-21 14:15 | PM.IMHP1 ---
Assessment and Plan Assessment and plan (1) Intertrochanteric fracture of right hip: Problem comment: Plan for urgent surgery per Dr. Guardado Status: Acute (2) Fall: Problem comment: Unclear details of the events leading to the fall. Possible syncope. Recent extensive cardiac evaluation is reassuring. secured entrance monitor in the perioperative time looking for dysrhythmia. Status: Acute (3) Diabetes: Problem comment: Hemoglobin A1c on 05/15/2025 was 6.2. Sliding scale until eating a normal diet in the hospital Status: Acute (4) Essential tremor: Problem comment: Primidone, propranolol Status: Acute (5) Adjustment disorder with anxiety: Problem comment: Takes alprazolam 0.25 mg 1/2 tablet 2 or 3 times a month for anxiety. Status: Acute (6) Heart failure with preserved ejection fraction: Problem comment: Echocardiogram from 01/20/2025:TTE 01/20/25 1. Normal LV size, normal wall thickness, normal global systolic function with an estimated EF of 65 - 70%. 2. Severely enlarged left atrium. 3. The mitral valve is normal, mild mitral regurgitation. 4. Tricuspid valve is normal, mild tricuspid regurgitation. This has been well managed and asymptomatic for the past several months Consider SGLT2 treatment for heart failure and diabetes Status: Acute (7) Osteoporosis: Problem comment: Now has osteoporosis by definition with fragility fracture. Consider treatment with calcium, vitamin-D and Fosamax at discharge Status: Acute Plan 84-year-old female with right femur intertrochanteric hip fracture admitted to the hospital for surgery and management of other medical problems. Will also evaluate for possible syncope, monitor for heart failure and manage diabetes in the perioperative. Discussed plan of care with the patient and her son. Also reviewed probable postoperative care including possible rehab stay. Total time spent today is 105 minutes in reviewing outside records, coordination of care and discussing with patient and family ongoing management of above problems Hospitalist- H&P: HPI History of Present Illness Time Seen by Provider: 13:00 Date Seen: 06/21/25 Chief complaint: fall Narrative: Joan Peters is a 84 year old female with diabetes mellitus, hypertension, history of heart failure with preserved ejection fraction presents with knee pain after a fall at home yesterday. Patient does not recall the details of what happened yesterday afternoon. She was feeling well, walking around her town home and then found herself on the floor unable to get up because her knee hurt too much. She does not remember slipping or tripping. She normally walks independently without assistive device. She is not aware of hitting her head or having syncope or lightheadedness. She does not have a history of syncope. On the floor she was unable to get up because of her injury. She stayed on the floor overnight but this morning when she could not get up and could not get to her phone she used Music Messenger (MM) to call her son. Her son eventually contacted her friend and neighbor to check on her and then called 911. She has had nothing to eat or drink since she fell yesterday afternoon. She has if history of heart failure with preserved ejection fraction. She is seen by the [facility] heart failure clinic. She saw the silk screen operator March 03 2025 with the following note: Joan is a 84 y.o. female with HTN, DM2, CKD 2-3, chronic back pain, and essential tremor, B12 deficiency,. On her visits with her PCP, she has noted 2 to 3 months of increased shortness of breath with activities as well as increased lower extremity swelling. She has had occasional dull chest pain at times but denies any nausea vomiting sweats or arm pain. She was previously on amlodipine which has been stopped and managed with benazepril. This raise concerns for development of heart failure. Subsequent echo was performed 6 weeks ago showing preserved LV function with no significant valve disease but noted left atrial enlargement. She then subsequently had a 2-week ZIO placed showing minimal ectopy less than 1% of primarily small nonsustained runs of SVT and very few PVCs. Follow-up testing as follows: TTE 01/20/25 1. Normal LV size, normal wall thickness, normal global systolic function with an estimated EF of 65 - 70%. 2. Severely enlarged left atrium. 3. The mitral valve is normal, mild mitral regurgitation. 4. Tricuspid valve is normal, mild tricuspid regurgitation. ? CTCA 03/10/2025 1) Moderate non-obstructive coronary atherosclerosis with no significant stenosis. - Total coronary artery calcium score 154. NAPLES percentile based on age, gender, and race is 53. 2) Normal aortic root size (32 x 31 x 34 mm). Thoracic aorta has normal caliber (32 x 32 mm). 3) No LA/EMERALD thrombus. Normal pulmonary venous return. Impression and plan from 04/13/2025 cardiology visit: Chronic HFpEF HTN -etiology likely longstanding hypertension with diabetes and chronic kidney disease. -Appears euvolemic and well compensated with improved symptoms -Lasix 10 mg prn for weight gain -Propanolol for tremor -Continue benazepril and amlodipine for HTN -Farxiga or jardiance would be excellent choice for HFpEF and DMII, but current UTI is prohibitive. -Continue to follow home BPs 2-3 times per week. Goal BP <130/80 Patient reports no heart failure symptoms, no chest pain, no need for Lasix for fluid retention and weight gain and no need for p.r.n. nitroglycerin. She has had multiple previous surgeries including bilateral knee arthroplasty. She has no personal or family history of problems with anesthesia, bleeding or clotting. She did have a rehab stay after 1 of her knee replacement surgeries ? Review of Systems Narrative: She reports doing well except for current hip fracture and heart issues outlined above which have resolved over the past several months with heart failure treatment. Last year she was seen in clinic for back problems and received back injections from Dr. Melendez which were helpful but caused her blood sugar to go up Medical Decision Making Medical Decision Making Has patient completed a Health Care Directive: Yes [facility] Medical History (Updated 06/21/25 @ 14:46 by Diego Blood MD) Osteoporosis ?M81.0 - Age-related osteoporosis without current pathological fracture (ICD-10) Heart failure with preserved ejection fraction ?I50.30 - Unspecified diastolic (congestive) heart failure (ICD-10) History of melanoma ?Z85.820 - Personal history of malignant melanoma of skin (ICD-10) Lumbar radiculopathy ?M54.16 - Radiculopathy, lumbar region (ICD-10) DDD (degenerative disc disease), lumbar ?M51.369 - Other intervertebral disc degeneration, lumbar region without mention of lumbar back pain or lower extremity pain (ICD-10) HTN (hypertension) ?I10 - Essential (primary) hypertension (ICD-10) Adjustment disorder with anxiety ?F43.22 - Adjustment disorder with anxiety (ICD-10) HLD (hyperlipidemia) ?E78.5 - Hyperlipidemia, unspecified (ICD-10) Essential tremor ?G25.0 - Essential tremor (ICD-10) History of breast cancer ?Z85.3 - Personal history of malignant neoplasm of breast (ICD-10) Surgical History (Updated 06/21/25 @ 14:31 by Diego Blood MD) History of hysterectomy ?Z90.710 - Acquired absence of both cervix and uterus (ICD-10) S/P total knee arthroplasty ?Z96.659 - Presence of unspecified artificial knee joint (ICD-10) Family History (Updated 06/21/25 @ 14:29 by Dieog Blood MD) Mother Heart disease Father Alcohol dependence Social History (Updated 06/21/25 @ 14:34 by Diego Blood MD) Narrative: She lives alone in a town house in [place]. Her townhouse is on 1 level without stairs and his handicap assessable. Closest family is her son Cruz who lives in [place] and her sister Roberta who lives in [place]. They are both designated healthcare power of attorney at law. Code status is full code for witnessed arrest. She normally walks without an assistive device. What is your current living situation?: I presently have a place to live Problems where you live: no known problems Problems where you live details: N/A In the past 12 months, utilities in danger of being shut off: no In past 12 months, lack of transportation kept you from medical appts, meetings, work, or getting things needed for daily living: no In the past 12 mos, have been you worried that your food would run out before you had money to buy more?: never true In the past 12 mos, the food you bought just didn't last and you didn't have money to buy more?: never true Highest level of school completed/degree received: Associate degree: occupational, technical, vocational program Smoking Status: Former smoker Do you use any of these nicotine containing products: None How often do you have a drink containing alcohol: monthly or less How often do you have six or more drinks on one occasion: Never AUDIT-C Alcohol total score: 1 Non-prescribed substance use: denies use How often does anyone, including family, friends and others, physically hurt you: never How often does anyone, including family, friends and others, insult or talk down to you: never How often does anyone, including family, friends and others, threaten you with harm: never How often does anyone, including family, friends and others, scream or curse at you: never service: No Meds Home Medications and Allergies Home Medications ?Medication ?Instructions ?Recorded ?Confirmed ?Type alprazolam 0.25 mg tablet 0.25 mg PO BID PRN 04/16/23 06/16/24 History benazepril 40 mg tablet 40 mg PO DAILY 04/16/23 06/16/24 History fluticasone propionate 50 1 spray intranasal DAILY 04/16/23 06/16/24 History mcg/actuation nasal spray,suspension glimepiride 1 mg tablet 1 mg PO DAILY 04/16/23 06/16/24 History metformin 500 mg tablet,extended 1,000 mg PO BID 04/16/23 06/16/24 History release 24 hr omeprazole 40 mg capsule,delayed 40 mg PO BID 04/16/23 06/16/24 History release primidone 50 mg tablet 100 mg PO TID 04/16/23 06/16/24 History propranolol 10 mg tablet 10 - 20 mg PO PRN 04/16/23 06/16/24 History rosuvastatin 40 mg tablet 40 mg PO HS 04/16/23 06/16/24 History nitroglycerin 0.4 mg sublingual 0.4 mg sublingual Q5M PRN 06/08/23 06/16/24 History tablet cyanocobalamin (vitamin B-12) 1,000 mcg IM Q28D 06/16/24 06/16/24 History 1,000 mcg/mL injection solution (Dodex) propranolol 160 mg capsule,24 160 mg PO DAILY 06/16/24 06/16/24 History hr,extended release acetaminophen 650 mg 1,300 mg (2 x 650 mg) PO Q8H #90 06/17/24 Rx tablet,extended release tabs celecoxib 200 mg capsule 200 mg PO DAILY pain #30 caps 06/17/24 Rx lidocaine 5 % topical patch 1 patch transdermal Q24H pain #30 06/17/24 Rx ea oxycodone 5 mg tablet 2.5 mg (1/2 x 5 mg) PO Q4H PRN 06/17/24 Rx pain #30 tabs Allergies Allergy/AdvReac Type Severity Reaction Status Date / Time Sulfa (Sulfonamide Allergy Verified 06/21/25 11:33 Antibiotics) Exam Narrative: Exam Narrative: She is alert and appears in no distress. She is relatively comfortable lying supine in bed. Eyes normal. No facial asymmetry. Speech is normal. Oropharynx with small airway and prominent tongue. Neck is supple without mass or adenopathy. Respirations are clear to auscultation. Cardiovascular: S1, S2, regular rate and rhythm. No murmur gallop or rub. Abdomen: Bowel sounds active. Abdomen is soft without tenderness or mass. External genitalia normal. Lower extremities without obvious deformity or signs of trauma. Her right foot is slightly cooler than her left foot but she has intact pulses and sensation bilaterally in her feet. Trace edema. Good strength in both feet and ankles with motion. Const: Vital Signs, click to edit/add: Vital Signs - 24 hr 06/21/25 11:28 Temperature 35.8 C L Pulse Rate [Right Pulse Oximeter] 79 Respiratory Rate 18 Blood Pressure [Ri ght Upper Arm] 123/97 H Pulse Oximetry 98 Oxygen Delivery Me thod Room Air Documenting provider has reviewed patient's vital signs: yes Hospitalist - H&P: Result Labs Labs: Short CBC 06/21/25 Range/Units 12:30 WBC 11.41 H (4.50-11.00) K/uL Hgb 11.2 L (12.0-16.0) gm/dL Hct 33.4 (33.0-51.0) % Plt Count 232 (140-440) K/uL BMP 06/21/25 12:30 Sodium 134 L Potassium 4.3 Chloride 100 Carbon Dioxide 27 BUN 14 Creatinine 0.8 Glucose 214 H Calcium 9.1 Cardiac Enzymes 06/21/25 Range/Units 12:30 Total Creatine Kinase 261 H (41-117) U/L Troponin I < 0.01 (0.01-0.04) ng/mL Liver Function 06/21/25 Range/Units 12:30 Total Bilirubin 0.9 (0.1-1.5) mg/dL AST 34 (12-35) U/L ALT 26 (4-35) U/L Alkaline Phosphatase 86 (40-150) U/L Albumin 4.5 (3.3-5.0) g/dL ECG Attestation: I personally reviewed and interpreted this ECG as follows: (Normal sinus rhythm with a rate of 79. No acute ST-T changes) Imaging Chest x-ray: Radiologist's impression: Indication: Fall. Technique: Frontal chest radiograph. Comparison: None. Findings: Lungs are clear. No consolidation, effusion or pneumothorax. Cardiomediastinal silhouette is within normal limits. No significant osseous or soft tissue findings. Impression: 1. No acute cardiopulmonary process. Right hip x-ray: Radiologist's impression: INDICATION: Posttraumatic pain. COMPARISON: None available. TECHNIQUE: AP pelvis and two views right hip. FINDINGS/IMPRESSION: Comminuted right intertrochanteric hip fracture. CT scan - head: Radiologist's impression: INDICATION: Fall. TECHNIQUE: CT of the head without contrast. Coronal and sagittal reformats are included. COMPARISON: None. FINDINGS: No acute intracranial hemorrhage. No mass effect or midline shift. No hydrocephalus or extra-axial collections. Scattered white matter hypoattenuation, typical for chronic microvascular ischemic change. Mild generalized parenchymal volume loss. No acute osseous abnormalities. Mastoid air cells and paranasal sinuses are clear. Normal soft tissues. IMPRESSION: CT scan cervical spine: Radiologist's impression: INDICATION: Fall/trauma. TECHNIQUE: CT of the cervical spine without contrast. Coronal and sagittal reformats are included. COMPARISON: None. FINDINGS: Fractures and other acute findings: None. Hardware: None. Spinal alignment: Mild lower cervical kyphosis. Degenerative anterolisthesis C4-5 and C7-T1. Significant cervical spondylosis: Advanced disc degeneration C5-6, C6-7 and C7-T1. Bulky C6-7 disc osteophyte complex contributes to at least mild spinal canal stenosis. Multilevel uncovertebral and facet arthrosis with high-grade neural foraminal stenosis C5-6 on the right and C6-7 on the right. Paraspinal soft tissues and imaged lungs: Within normal limits. IMPRESSION: 1. No acute fracture or traumatic malalignment of the cervical spine.
--- NOTE | 2025-06-21 15:00 | P.ORCN_ITS ---
History of Present Illness HPI Date Seen: 06/21/25 Consult date: 06/21/25 Chief complaint: fall Narrative: Joan is a pleasant 84-year-old female. She lives alone. Typically is a community ambulator without assistive device. She has a past medical history including diabetes mellitus, hypertension, and history of heart failure (preserved ejection fraction) who sustained a fall at her home on 06/20/2025. She was unable to bear weight. She tried to get her phone through ?Janice? to call 911. Eventually, her son contacted a friend was able to check on her. 911 was called. She was brought to [facility] today, 06/21/2025. Here it [place] ED x-rays were obtained revealed a right intertrochanteric femur fracture. She was admitted to the hospitalist orthopedics was consulted to consider surgical fixation. She does have a history of right TKA from approximately 2013. [facility] Medical History (Updated 06/21/25 @ 14:46 by Diego Blood MD) Osteoporosis ?M81.0 - Age-related osteoporosis without current pathological fracture (ICD- 10) Heart failure with preserved ejection fraction ?I50.30 - Unspecified diastolic (congestive) heart failure (ICD-10) History of melanoma ?Z85.820 - Personal history of malignant melanoma of skin (ICD-10) Lumbar radiculopathy ?M54.16 - Radiculopathy, lumbar region (ICD-10) DDD (degenerative disc disease), lumbar ?M51.369 - Other intervertebral disc degeneration, lumbar region without mention of lumbar back pain or lower extremity pain (ICD-10) HTN (hypertension) ?I10 - Essential (primary) hypertension (ICD-10) Adjustment disorder with anxiety ?F43.22 - Adjustment disorder with anxiety (ICD-10) HLD (hyperlipidemia) ?E78.5 - Hyperlipidemia, unspecified (ICD-10) Essential tremor ?G25.0 - Essential tremor (ICD-10) History of breast cancer ?Z85.3 - Personal history of malignant neoplasm of breast (ICD-10) Surgical History History of hysterectomy ?Z90.710 - Acquired absence of both cervix and uterus (ICD-10) S/P total knee arthroplasty ?Z96.659 - Presence of unspecified artificial knee joint (ICD-10) Family History Mother Heart disease Father Alcohol dependence Social History Narrative: She lives alone in a town house in [place]. Her townhouse is on 1 level without stairs and his handicap assessable. Closest family is her son Cruz who lives in [place] and her sister Roberta who lives in [place]. They are both designated healthcare power of workers compensation defense attorney. Code status is full code for witnessed arrest. She normally walks without an assistive device. What is your current living situation?: I presently have a place to live Problems where you live: no known problems Problems where you live details: N/A In the past 12 months, utilities in danger of being shut off: no In past 12 months, lack of transportation kept you from medical appts, meetings, work, or getting things needed for daily living: no In the past 12 mos, have been you worried that your food would run out before you had money to buy more?: never true In the past 12 mos, the food you bought just didn't last and you didn't have money to buy more?: never true Highest level of school completed/degree received: Associate degree: occupational, technical, vocational program Smoking Status: Former smoker Do you use any of these nicotine containing products: None How often do you have a drink containing alcohol: monthly or less How often do you have six or more drinks on one occasion: Never AUDIT-C Alcohol total score: 1 Non-prescribed substance use: denies use How often does anyone, including family, friends and others, physically hurt you : never How often does anyone, including family, friends and others, insult or talk down to you: never How often does anyone, including family, friends and others, threaten you with harm: never How often does anyone, including family, friends and others, scream or curse at you: never service: No Meds Home Medications and Allergies Home Medications ?Medication ?Instructions ?Recorded ?Confirmed ?Type alprazolam 0.25 mg tablet 0.25 mg PO BID PRN 04/16/23 06/16/24 History benazepril 40 mg tablet 40 mg PO DAILY 04/16/23 9/24 History fluticasone propionate 50 1 spray intranasal DAILY 03/3106/16/24 History mcg/actuation nasal spray,suspension glimepiride 1 mg tablet 1 mg PO DAILY 04/16/2306/16 History metformin 500 mg tablet,extended 1,000 mg PO BID 04/1606/16/24 History release 24 hr omeprazole 40 mg capsule,delayed 40 mg PO BID 04/16/23 06/16/24 History release primidone 50 mg tablet 100 mg PO TID 04/16/2306/16 History propranolol 10 mg tablet 10 - 20 mg PO PRN 04/16/23 1 08/17/23 History rosuvastatin 40 mg tablet 40 mg PO HS 04/16/23 4 History nitroglycerin 0.4 mg sublingual 0.4 mg sublingual Q5M PRN 06/08/23 06/16/24 History tablet cyanocobalamin (vitamin B-12) 1,000 mcg IM Q28D 06/16/24 History 1,000 mcg/mL injection solution (Dodex) propranolol 160 mg capsule,24 160 mg PO DAILY 06/16/24 06/16/24 History hr,extended release acetaminophen 650 mg 1,300 mg (2 x 650 mg) PO Q8H #90 06/17/24 Rx tablet,extended release tabs celecoxib 200 mg capsule 200 mg PO DAILY pain #30 cap s 06/17/24 Rx lidocaine 5 % topical patch 1 patch transdermal Q24H p ain #30 06/17/24 Rx ea oxycodone 5 mg tablet 2.5 mg (1/2 x 5 mg) PO Q4H P RN 06/17/24 Rx pain #30 tabs Allergies Allergy/AdvReac Type Severity Reaction Status Date / Time Sulfa (Sulfonamide Allergy Verified 06/21/25 11:33 Antibiotics) Ortho Exam Narrative Exam Narrative: Alert and orient x3. No acute distress. Nonlabored breathing. Right hip exam shows no erythema, induration, or other cutaneous changes. Pain about the right hip with any range of motion of the hip or knee. Neurologic intact in the superficial and deep peroneal as well as plantar distribution to sensory light touch and motor function. 1+ DP and PT pulse. No lacerations or abrasions. Right TKA scar from remote past is noted. Const Vital Signs, click to edit/add: Vital Signs - 24 hr 06/21/25 11:28 06/21/25 11:28 06/21/25 11:30 Temperature 96.4 F L Pulse Rate 85 81 Pulse Rate [Right Pulse Oximeter] 79 Respiratory Rate 18 Blood Pressure Blood Pressure [Right Upper Arm] 123/97 H Pulse Oximetry 98 98 99 Oxygen Delivery Method Room Air 06/21/25 11:31 06/21/25 11:45 06/21/25 12:22 Temperature Pulse Rate 83 82 Pulse Rate [Right Pulse Oximeter] Respiratory Rate 14 15 Blood Pressure 144/125 H 184/105 H Blood Pressure [Right Upper Arm] Pulse Oximetry 98 99 Oxygen Delivery Method 06/21/25 12:23 06/21/25 12:30 06/21/25 12:31 Temperature Pulse Rate 206 H 78 81 Pulse Rate [Right Pulse Oximeter] Respiratory Rate 20 18 21 Blood Pressure 185/96 H Blood Pressure [Right Upper Arm] Pulse Oximetry 90 97 97 Oxygen Delivery Method 06/21/25 12:45 06/21/25 13:00 06/21/25 13:02 Temperature Pulse Rate 80 77 79 Pulse Rate [Right Pulse Oximeter] Respiratory Rate 17 21 18 Blood Pressure 177/83 H Blood Pressure [Right Upper Arm] Pulse Oximetry 97 96 94 Oxygen Delivery Method 06/21/25 13:15 06/21/25 13:30 06/21/25 13:31 Temperature Pulse Rate 83 78 81 Pulse Rate [Right Pulse Oximeter] Respiratory Rate 19 19 16 Blood Pressure 173/75 H Blood Pressure [Right Upper Arm] Pulse Oximetry 97 97 97 Oxygen Delivery Method 06/21/25 13:45 06/21/25 14:00 06/21/25 14:02 Temperature Pulse Rate 80 76 78 Pulse Rate [Right Pulse Oximeter] Respiratory Rate 14 21 15 Blood Pressure 199/87 H Blood Pressure [Right Upper Arm] Pulse Oximetry 95 95 95 Oxygen Delivery Method 06/21/25 14:03 06/21/25 14:15 06/21/25 14:30 Temperature Pulse Rate 77 81 80 Pulse Rate [Right Pulse Oximeter] Respiratory Rate 15 19 17 Blood Pressure Blood Pressure [Right Upper Arm] Pulse Oximetry 97 95 96 Oxygen Delivery Method 06/21/25 14:32 06/21/25 14:45 Temperature Pulse Rate 83 81 Pulse Rate [Right Pulse Oximeter] Respiratory Rate 17 19 Blood Pressure 152/138 H Blood Pressure [Right Upper Arm] Pulse Oximetry 96 95 Oxygen Delivery Method Results Labs Labs: Laboratory Results - last 48 hr 06/21/25 06/21/25 06/21/25 11:42 12:30 14:00 WBC 11.41 H RBC 3.66 L Hgb 11.2 L Hct 33.4 MCV 91 MCH 31 MCHC 34 RDW Coeff of Aimee 13.4 Plt Count 232 Neut % (Auto) 84.9 H Lymph % (Auto) 7.0 L [place] % (Auto) 7.4 Eos % (Auto) 0.0 Baso % (Auto) 0.3 Neut # (Auto) 9.70 H Lymph # (Auto) 0.80 L [place] # (Auto) 0.80 Eos # (Auto) 0.00 Baso # (Auto) 0.00 Abs Immat Gran (auto) 0.00 Imm/Tot Granulo (auto) 0.4 Sodium 134 L Potassium 4.3 Chloride 100 Carbon Dioxide 27 Anion Gap 7 BUN 14 Creatinine 0.8 Estimated GFR 74 Glucose 214 H Lactate 1.9 Calcium 9.1 Total Bilirubin 0.9 AST 34 ALT 26 Alkaline Phosphatase 86 Total Creatine Kinase 261 H Troponin I < 0.01 NT-Pro-B Natriuret Pep 1140 H Total Protein 7.3 Albumin 4.5 Urine Color Yellow Urine Appearance Clear Urine pH 6.0 Ur Specific [place] 1.025 Urine Protein 3+ A Urine Glucose (UA) Trace A Urine Ketones 1+ A Urine Blood 2+ A Urine Nitrite Negative Urine Bilirubin Negative Urine Urobilinogen 0.2 Ur Leukocyte Esterase Negative Urine RBC 2-5 A Urine WBC 2-5 Ur Squamous Epith Cells Few Urine Bacteria Few A Coarse Granular Casts Few A Ethyl Alcohol < 0.01 SARS-CoV-2 (PCR) Negative SARS-CoV-2 Influenza Type A (PCR) Negative PCR FLU A Influenza Type B (PCR) Negative PCR FLU B RSV (PCR) Negative PCR RSV Diagnostic results Additional Comments: AP pelvis, AP and cross-table lateral radiographs of the right hip from [facility] dated 06/21/2025 were ordered by a different provider and reviewed by me. This demonstrates a right intertrochanteric femur fracture with comminution, shortening, and external rotation to the shaft relative to the head. Well-preserved hip joint space otherwise. No images of the knee are present Assessment and Plan Assessment and plan (1) Intertrochanteric fracture of right hip: Problem comment: Plan for urgent surgery per Dr. Guardado Status: Acute Total time spent: Total time spent is greater than 50% in coordination of care (as documented) at patient's floor/unit and/or counseling patient: (2) Fall: Problem comment: Unclear details of the events leading to the fall. Possible syncope. Recent extensive cardiac evaluation is reassuring. ekg monitor tech in the perioperative time looking for dysrhythmia. Status: Acute Total time spent: Total time spent is greater than 50% in coordination of care (as documented) at patient's floor/unit and/or counseling patient: (3) Diabetes: Problem comment: Hemoglobin A1c on 05/15/2025 was 6.2. Sliding scale until eating a normal diet in the hospital Status: Acute Total time spent: Total time spent is greater than 50% in coordination of care (as documented) at patient's floor/unit and/or counseling patient: (4) Essential tremor: Problem comment: Primidone, propranolol Status: Acute Total time spent: Total time spent is greater than 50% in coordination of care (as documented) at patient's floor/unit and/or counseling patient: (5) Adjustment disorder with anxiety: Problem comment: Takes alprazolam 0.25 mg 1/2 tablet 2 or 3 times a month for anxiety. Status: Acute Total time spent: Total time spent is greater than 50% in coordination of care (as documented) at patient's floor/unit and/or counseling patient: (6) Heart failure with preserved ejection fraction: Problem comment: Echocardiogram from 01/20/2025:TTE 01/20/25 1. Normal LV size, normal wall thickness, normal global systolic function with an estimated EF of 65 - 70%. 2. Severely enlarged left atrium. 3. The mitral valve is normal, mild mitral regurgitation. 4. Tricuspid valve is normal, mild tricuspid regurgitation. This has been well managed and asymptomatic for the past several months Consider SGLT2 treatment for heart failure and diabetes Status: Acute Total time spent: Total time spent is greater than 50% in coordination of care (as documented) at patient's floor/unit and/or counseling patient: (7) Osteoporosis: Problem comment: Now has osteoporosis by definition with fragility fracture. Consider treatment with calcium, vitamin-D and Fosamax at discharge Status: Acute Total time spent: Total time spent is greater than 50% in coordination of care (as documented) at patient's floor/unit and/or counseling patient: Plan I had a good discussion today with the patient and her son and [id number]. I was able to show them the pictures of the x-ray and help her understand the pathology. Because she previously was a community ambulator and currently lives alone, I do think surgical fixation of this right intertrochanteric femur fracture is appropriate. This would be a right femur intramedullary nail. We discussed the risks and benefits in detail. This includes local risks (e.g. Infection, wound healing issues, shortening, malunion, ongoing pain) as well as systemic risks (e.g. VTE, CT, stroke). She states understanding. Indeed she would like to proceed with surgery. We will plan to do this today. She is NPO. Following the procedure anticipate at least 2 nights here in the hospital will be warranted. PT/OT consult will be valuable for evaluation/treatment and education. Social work consult for discharge planning. In addition, I was able to coordinate care with the hospitalist team as well as the anesthesia team.
[2025-06-21] MEDS: CEFAZOLIN 2 GM INJ IVP (15:30)
--- NOTE | 2025-06-21 15:39 | CRLHL7_ITS ---
For Patients: As a result of the Cures Act, medical imaging exams and procedure reports are released immediately into your electronic medical record. You may view this report before your referring provider. If you have questions, please contact your health care provider. Indication: Hip replacement surgery Technique: Four fluoroscopic images of the right femur submitted. Fluoroscopic time 123.8 seconds. Findings/Impression: Fluoroscopic guidance for open reduction internal fixation right proximal femur. Dictated by El Aquino MD @ 06/22/2025 9:21:36 AM (Electronically Signed)
[2025-06-21] MEDS: TRANEXAMIC ACID 100 MG/ML INJ 1000 MG IV (15:40)
[2025-06-21 15:57] LABS: Cannabinoid Screen Urine Negative (Negative); Methamphetamines Screen Urine Negative (Negative); Tricyclic Antidepressant Urine Negative (Negative)
--- NOTE | 2025-06-21 16:40 | PM.ORPRC ---
Procedure Note Date of procedure: 06/21/25 Procedure: PREOPERATIVE DIAGNOSES: 1. Right femur intertrochanteric fracture, closed, acute POSTOPERATIVE DIAGNOSES: 1. Right femur intertrochanteric fracture, closed, acute NAME OF OPERATION: 1. Right femur intertrochanteric fracture fixation with intramedullary nail 2. 66652 - intraoperative fluoroscopy up to 1 hour. SURGEON: Mukund Guardado MD SECURITIES SETTLEMENT PROCESSOR: Cayla Guerrero PA-C. Of note, an law office assistant was critical for this case to aide in patient positioning, extremity positioning, tissue retraction, instrument manipulation, and closure. ANESTHESIA: Spinal IMPLANTS: Synthes long TFN 11 mm x 380 mm with 105 mm lag screw and 1 distal 5.0 mm interlocking screws EBL: 200 ml COMPLICATIONS: None evident INDICATIONS: The patient is a pleasant, 84-year-old female who unfortunately sustained a recent fall. They landed on their right hip and were unable to bear weight. They experienced significant pain which prompted a visit to [facility]. X-rays were obtained and revealed a proximal femur fracture consistent with a pertrochanteric (i.e. intertrochanteric / subtrochanteric) femur fracture. Given these findings, along with the desire to help with pain control and improved mobility / mobilization, surgery was recommended. FINDINGS: Intertrochanteric comminuted right femur fracture with displacement, shortening, and varus angulation. PROCEDURE: Following a thorough discussion of risks, benefits, and alternatives, consent was obtained and the right hip was marked. After obtaining proper medical evaluation determining the patient was optimized prior to surgery, they were brought to the operating room and placed supine on the operating table. Induction of anesthesia undertaken. 2 g IV Ancef was administered within 1 hr of incision preoperatively. Proper time-out was performed identifying proper patient, site, and procedure. The operative extremity was prepped & draped in the appropriate sterile fashion using ChloraPrep after the patient was positioned on the [place] table with the head in neutral alignment all bone prominences well padded. C-arm fluoroscopic imaging was utilized to obtain AP and lateral views of the operative hip. This indeed confirm proper reduction of the proximal femur fracture. 10 blade skin incision was made proximal to the greater trochanteric tip. Sharp incision through skin and gluteal fascia allowed palpation of the greater trochanteric tip. A sharp awl was utilized and placed against the greater trochanteric tip. This was confirmed on C-arm and both in AP and lateral planes to be in appropriate starting position. Aiming down the canal. Once breaching the cortex, the ball-tip guidewire was passed the length of the femur. Once confirming via palpable scrape and visual C-Arm imagining that the guide wire with intraosseous, the depth gauge was used. The proper nail length was selected. The opening / proximal reamer was used followed by diaphyseal reamers up to 12.5 mm. The IMN was then opened and inserted and passed the length of the canal without difficulty. Of note, the patient does have a total knee replacement. The goal was to pass the distal portion of the IM nail beyond the anterior flange of the femoral component so as to protect the femur. The this just barely past that anterior flange. Unfortunately, going to the next longer nail would have been too long and abutted the femoral component. It was felt that with slight impaction to the fracture there will be some dynamization and this nail should progress even further beyond that anterior flange. The triple trocar was then applied to the lateral femur, 10 blade incision through the skin and ITB band along the trocars allowed them to be advanced to the lateral cortex. This was confirmed fluoroscopically to be in appropriate position. The guide pin was then placed and confirmed on AP and lateral views with the goal of center center position. The length was measured as noted above and the reamer used followed by screw application. Reduction of the fracture was monitored during insertion. The proximal nail locking screw was tightened down, and backed off 1/8 of a turn. At this stage, C-arm confirmed proper screw/leg screw position. We then turned our attention to the distal interlocking screws. Perfect [place] technique was utilized, and the 10 blade skin incision allowed the drill bit to be placed, and confirmed on C-arm fluoroscopic imaging to be within the oblong hole. This was measured and the screw placed with good security of the screw. Again C-arm images were obtained to confirm position within the nail and the nail to be within the bone. At this stage, the wounds were thoroughly irrigated normal saline; closure was performed with #0 Vicryl for the deep gluteal fascia, and IT band. 2-0 Vicryl and 4-0 Monocryl was utilized for subcutaneous and subcuticular closure, respectively. The patient was awoken from anesthesia and transferred to the PACU in stable condition. PLAN: 1. Weight bear as tolerated left lower extremity. 2. Encouraged ice. 3. Oxycodone for pain as needed. 4. Anticipate the need for senior living facility transfer once medically stabilized 5. 23 hr perioperative antibiotics. 6. Xarelto for DVT prophylaxis along with and SCDs.
[2025-06-21] MEDS: LACTATED RINGERS 1000 ML 1,000 ML 125 ML IV (17:16)
--- NOTE | 2025-06-21 17:50 | P.ANES_ITS ---
Anesthesia Charges Start Date/Time Anesthesia Start Date: 06/21/25 Anesthesia Start Time: 14:53 Stop Date/Time Anesthesia Stop Date: 06/21/25 Anesthesia Stop Time: 17:20 Summary Emergency: RESEARCH EXECUTIVE Extremes of Age - Over 70 or under 1: RESEARCH EXECUTIVE Coding CPT Codes CPT Codes: ANESTH HIP JOINT SURGERY - 75444 ([id number]) P3 - PATIENT W/SEVERE SYS DISEASE, QZ - RESEARCH EXECUTIVE SVC W/O INTERIOR PLANT CARETAKER BY Additional Codes: Summary - Extremes of Age - Over 70 or under 1: RESEARCH EXECUTIVE ([id number]) Summary - Emergency: RESEARCH EXECUTIVE ([id number])
--- NOTE | 2025-06-21 17:50 | W.ANESCHARGE ---
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
--- NOTE | 2025-06-21 17:52 | W.PM.NB ---
Nerve Block Nerve Block Time Seen by Provider: 17:40 Date Seen: 06/21/25 Type of block requested by surgeon for post-operative analgesia: MARCO ANTONIO/LFCN Side: right Time out performed: Yes Verification of patient name: Yes Verification of date of : Yes Site marking: site marked Name of person performing procedure: Judy Continuous monitoring Was continuous monitoring of O2 sat, B/P, traffic monitor specialist, recorded every 15 minutes?: Yes Procedure Checklist: sterile prep, needles and gloves Ultrasound guided. Images saved: Yes Medications given in 5ml increments after negative aspiration: Ropivicaine %: 0.5 mL: 20 Needle gauge: 20 Precedex (mcg): 25 Patient tolerated procedure well: Yes Block Charges Block Charge (with Pro Fee): Other Periph Nerve Block Use of Ultrasound Machine for Block: Yes- US Guidance/pain block
--- NOTE | 2025-06-21 19:19 | PC.NURSE ---
Pt admitted to floor 1755, upon assessment pt reported no pain, cms intact. Pt tolerated clear liquid. pain reported 2-5/10, pain managed with prn pain meds and active ice. Pt has not been up during shift, Dejesus patent and draining. Pt sleeping comfortably in bed at this time
[2025-06-21] MEDS: SENNOSIDES 1 TAB TABLET 2 TAB PO (21:37)
[2025-06-21] MEDS: ROSUVASTATIN CALCIUM 10 MG TABLET 40 MG PO (21:37)
[2025-06-21] MEDS: OMEPRAZOLE 20 MG CAPSULE DR 40 MG PO (21:37)
[2025-06-21] MEDS: PRIMIDONE 50 MG TABLET 100 MG PO (21:37)
[2025-06-21] MEDS: CEFAZOLIN 2 GM in 0.9 % SODIUM CHLORIDE Mini-bag 100 ML IVPB (23:08)
[2025-06-22] VITALS (8 sets, daily range): BP systolic 112–145; BP diastolic 52–72; PULSE 82–98; RESP 14–18; TEMP 36.7–37.3; O2SAT 89–94
[2025-06-22] MEDS: LACTATED RINGERS 1000 ML 1,000 ML 125 ML IV (01:42)
[2025-06-22] MEDS: 0.9 % SODIUM CHLORIDE 500 ML IV ×4 (06:54→21:21)
--- NOTE | 2025-06-22 07:06 | PC.NURSE ---
Pt is alert and oriented x3. Afebrile. Pt reports 2-4/10 pain in right hip, managed with PRN medications. Pt's right hip dressings are CDI. Pt was up at side of bed and stood for a several minutes and took a few steps tolerated well. Pt's kim catheter is patent and draining. Pt denies passing gas yet.
[2025-06-22 07:26] LABS: Chloride* 101 mmol/L (96-114); Sodium* 133 mmol/L (135-149)
[2025-06-22 07:27] LABS: Potassium* 4.1 mmol/L (3.6-5.1)
[2025-06-22 07:30] LABS: Anion Gap 6 mEq/L (7-15); Blood Urea Nitrogen* 17 mg/dL (7-30); Calcium* 8.0 mg/dL (8.4-10.6); Carbon Dioxide* 26 mmol/L (20-32); Creatinine* 1.0 mg/dL (0.5-1.5); Estimated Glomerular Filt Rate 56 ml/min; Glucose* 204 mg/dL (60-115)
--- NOTE | 2025-06-22 07:47 | P.ORPN_ITS ---
Subjective Subjective Time Seen by Provider: 07:47 Date Seen: 06/22/25 Principal diagnosis: status post Rt hip rodding 06-21-25 Interval history: Joan is comfortable at rest when not moving. She denies nausea or vomitting. She will discharge when medically appropriate to a [facility] facility. Ortho Exam Narrative Exam Narrative: Joan is alert and oriented x3. She is in no acute distress. Converses without labored breathing. Exam of the rt lower extremity shows the dressings are intact. Feet are warm, capillary refill less than 2 seconds. She is able to dorsiflex and plantar flex the ankles. She is able to engage her quads. She is not able to SLR on the right and can minimally SLR on the left. Calves are soft and non tender. Mild edema about the hip and thigh. No sign of infection. Const Vital Signs, click to edit/add: Vital Signs - 24 hr 06/21/25 11:28 06/21/25 11:28 06/21/25 11:30 Temperature 96.4 F L Pulse Rate 85 81 Pulse Rate [Right Pulse Oximeter] 79 Respiratory Rate 18 Blood Pressure Blood Pressure [Right Arm] Blood Pressure [Right Upper Arm] 123/97 H Pulse Oximetry 98 98 99 Oxygen Delivery Method Room Air Oxygen Flow Rate 06/21/25 11:31 06/21/25 11:45 06/21/25 12:22 Temperature Pulse Rate 83 82 Pulse Rate [Right Pulse Oximeter] Respiratory Rate 14 15 Blood Pressure 144/125 H 184/105 H Blood Pressure [Right Arm] Blood Pressure [Right Upper Arm] Pulse Oximetry 98 99 Oxygen Delivery Method Oxygen Flow Rate 06/21/25 12:23 06/21/25 12:30 06/21/25 12:31 Temperature Pulse Rate 206 H 78 81 Pulse Rate [Right Pulse Oximeter] Respiratory Rate 20 18 21 Blood Pressure 185/96 H Blood Pressure [Right Arm] Blood Pressure [Right Upper Arm] Pulse Oximetry 90 97 97 Oxygen Delivery Method Oxygen Flow Rate 06/21/25 12:45 06/21/25 13:00 06/21/25 13:02 Temperature Pulse Rate 80 77 79 Pulse Rate [Right Pulse Oximeter] Respiratory Rate 17 21 18 Blood Pressure 177/83 H Blood Pressure [Right Arm] Blood Pressure [Right Upper Arm] Pulse Oximetry 97 96 94 Oxygen Delivery Method Oxygen Flow Rate 06/21/25 13:15 06/21/25 13:30 06/21/25 13:31 Temperature Pulse Rate 83 78 81 Pulse Rate [Right Pulse Oximeter] Respiratory Rate 19 19 16 Blood Pressure 173/75 H Blood Pressure [Right Arm] Blood Pressure [Right Upper Arm] Pulse Oximetry 97 97 97 Oxygen Delivery Method Oxygen Flow Rate 06/21/25 13:45 06/21/25 14:00 06/21/25 14:02 Temperature Pulse Rate 80 76 78 Pulse Rate [Right Pulse Oximeter] Respiratory Rate 14 21 15 Blood Pressure 199/87 H Blood Pressure [Right Arm] Blood Pressure [Right Upper Arm] Pulse Oximetry 95 95 95 Oxygen Delivery Method Oxygen Flow Rate 06/21/25 14:03 06/21/25 14:15 06/21/25 14:30 Temperature Pulse Rate 77 81 80 Pulse Rate [Right Pulse Oximeter] Respiratory Rate 15 19 17 Blood Pressure Blood Pressure [Right Arm] Blood Pressure [Right Upper Arm] Pulse Oximetry 97 95 96 Oxygen Delivery Method Oxygen Flow Rate 06/21/25 14:32 06/21/25 14:45 06/21/25 17:15 Temperature 98.9 F Pulse Rate 83 81 72 Pulse Rate [Right Pulse Oximeter] Respiratory Rate 17 19 16 Blood Pressure 152/138 H 92/46 L Blood Pressure [Right Arm] Blood Pressure [Right Upper Arm] Pulse Oximetry 96 95 92 Oxygen Delivery Method Room Air Oxygen Flow Rate 06/21/25 17:20 06/21/25 17:25 06/21/25 17:30 Temperature Pulse Rate 71 68 66 Pulse Rate [Right Pulse Oximeter] Respiratory Rate 16 16 16 Blood Pressure 115/56 L 103/48 L 118/51 L Blood Pressure [Right Arm] Blood Pressure [Right Upper Arm] Pulse Oximetry 93 94 95 Oxygen Delivery Method Oxygen Flow Rate 06/21/25 17:35 06/21/25 17:40 06/21/25 17:45 Temperature 99.0 F Pulse Rate 66 67 65 Pulse Rate [Right Pulse Oximeter] Respiratory Rate 16 16 16 Blood Pressure 119/48 L 127/52 L 107/57 L Blood Pressure [Right Arm] Blood Pressure [Right Upper Arm] Pulse Oximetry 93 93 93 Oxygen Delivery Method Room Air Oxygen Flow Rate 06/21/25 17:55 06/21/25 18:00 06/21/25 18:45 Temperature 96.5 F L 95.6 F L Pulse Rate Pulse Rate [Right Pulse Oximeter] 74 73 70 Respiratory Rate 12 14 Blood Pressure Blood Pressure [Right Arm] 126/56 L 126/56 L 119/52 L Blood Pressure [Right Upper Arm] Pulse Oximetry 90 94 Oxygen Delivery Method Nasal Cannula Nasal Cannula Nasal Cannula Oxygen Flow Rate 2 2 2 06/21/25 19:00 06/21/25 19:00 06/21/25 19:15 Temperature 97.3 F L 97.3 F L 97.5 F L Pulse Rate Pulse Rate [Right Pulse Oximeter] 73 73 71 Respiratory Rate 14 14 16 Blood Pressure Blood Pressure [Right Arm] 120/54 L 120/54 L 130/56 L Blood Pressure [Right Upper Arm] Pulse Oximetry 99 93 97 Oxygen Delivery Method Nasal Cannula Nasal Cannula Nasal Cannula Oxygen Flow Rate 1 1 1 06/21/25 19:30 06/21/25 20:00 06/21/25 20:30 Temperature 97.6 F 97.6 F Pulse Rate Pulse Rate [Right Pulse Oximeter] 72 88 95 Respiratory Rate 16 16 16 Blood Pressure Blood Pressure [Right Arm] 147/59 H 149/55 H 140/57 H Blood Pressure [Right Upper Arm] Pulse Oximetry 97 96 97 Oxygen Delivery Method Nasal Cannula Nasal Cannula Nasal Cannula Oxygen Flow Rate 1 1 1 06/21/25 21:30 06/21/25 22:48 06/21/25 23:00 Temperature 97.8 F 98.4 F Pulse Rate Pulse Rate [Right Pulse Oximeter] 89 78 Respiratory Rate 16 14 14 Blood Pressure Blood Pressure [Right Arm] 131/82 144/63 H Blood Pressure [Right Upper Arm] Pulse Oximetry 96 93 90 Oxygen Delivery Method Nasal Cannula Nasal Cannula Nasal Cannula Oxygen Flow Rate 1 1 1 06/21/25 23:30 06/22/25 03:35 Temperature 97.8 F 98.8 F Pulse Rate Pulse Rate [Right Pulse Oximeter] 79 83 Respiratory Rate 16 14 Blood Pressure Blood Pressure [Right Arm] 146/67 H 145/59 H Blood Pressure [Right Upper Arm] Pulse Oximetry 97 94 Oxygen Delivery Method OxyMask OxyMask Oxygen Flow Rate 1 1 Assessment and Plan Assessment and plan (1) Intertrochanteric fracture of right hip: Problem details: 06-21-25, Dr. Guardado Status: Acute Assessment and Plan: AMADA lopez went well yesterday. She will discharge to a [facility] facility when a site is found and when medically appropriate. Oxycodone, Tylenol, ice for pain. We discussed that getting up and down will be the most painful and difficult and that in a couple days she will find it easier to bear weight on the right lower extremity. She can WBAT on the right lower extremity. I have encouraged her to work on strengthening while lying in bed and sitting in her chair, We discussed simple things she can continuously be doing. She will work with PT and OT in the hospital and SNF. She will return to orthopedics with Dr Lopez in 4 weeks. Dressings can be removed in 2 weeks at SNF and changed as needed.
[2025-06-22 08:05] LABS: Hematocrit* 28.2 % (33.0-51.0); Hemoglobin* 9.0 gm/dL (12.0-16.0); Immature Granulocytes Abs Auto 0.02 K/uL (0.00-0.30); Immature Granulocytes Pct Auto 0.2 %; Mean Corpuscular HGB Conc 32 gm/dL (32-36); Mean Corpuscular Hemoglobin 31 pg (26-34); Mean Corpuscular Volume 96 fL (80-100); RDW Coefficient of Variation % 13.7 % (11.5-15.5); Red Blood Count* 2.93 m/uL (4.00-5.20); White Blood Count* 10.03 K/uL (4.50-11.00)
[2025-06-22] MEDS: CEFAZOLIN 2 GM in 0.9 % SODIUM CHLORIDE Mini-bag 100 ML IVPB ×2 (08:05→15:17)
[2025-06-22 08:07] LABS: Lymphocytes Absolute Auto 1.40 K/uL (0.90-2.90); Slide Review Reflex No
[2025-06-22] MEDS: INSULIN ASPART 100 UNIT/ML SUBCUT ×4 (08:24→21:15)
[2025-06-22 08:33] LABS: HCO3 VBG 25 mmol/L (21-28); PCO2 VBG 44 mmHG (40-50); PO2 VBG < 30.1 mmHG (25-47); pH VBG 7.371 (7.32-7.43)
[2025-06-22] MEDS: RIVAROXABAN 10 MG TABLET PO (08:56)
[2025-06-22] MEDS: PRIMIDONE 50 MG TABLET 100 MG PO ×3 (08:56→21:13)
[2025-06-22] MEDS: OMEPRAZOLE 20 MG CAPSULE DR 40 MG PO ×2 (08:56→21:14)
[2025-06-22] MEDS: SENNOSIDES 1 TAB TABLET 2 TAB PO ×2 (08:56→21:14)
--- NOTE | 2025-06-22 10:15 | PM.IMPN1 ---
Assessment and Plan Assessment and plan (1) Intertrochanteric fracture of right hip: Problem comment: 06-21-25, Dr. Guardado. No complications. Status: Acute (2) Heart failure with preserved ejection fraction: Problem comment: Echocardiogram from 01/20/2025:TTE 01/20/25 1. Normal LV size, normal wall thickness, normal global systolic function with an estimated EF of 65 - 70%. 2. Severely enlarged left atrium. 3. The mitral valve is normal, mild mitral regurgitation. 4. Tricuspid valve is normal, mild tricuspid regurgitation. This has been well managed and asymptomatic for the past several months Consider SGLT2 treatment for heart failure and diabetes Status: Acute (3) Osteoporosis: Problem comment: Now has osteoporosis by definition with fragility fracture. Consider treatment with calcium, vitamin-D and Fosamax at discharge Status: Acute (4) Fall: Problem comment: Unclear details of the events leading to the fall. Possible syncope. Recent extensive cardiac evaluation is reassuring. 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 Status: Acute (5) Essential tremor: Problem comment: Primidone, propranolol Status: Acute (6) Diabetes: Problem comment: Hemoglobin A1c on 05/15/2025 was 6.2. Sliding scale until eating a normal diet in the hospital Status: Acute (7) Blood loss anemia: Problem comment: From right intertrochanteric femur fracture. Monitor vitals, urine output, hemoglobin. Fluids and blood if needed. Status: Acute (8) HTN (hypertension): Problem comment: Resume home medications as blood pressure allows. Status: Acute (9) Discharge planning issues: Problem comment: Likely will need residential facility for rehab prior to returning home Status: Acute Plan 84-year-old female admitted to the hospital with a right intertrochanteric femur fracture now status post ORIF day 1. Generally doing well except for some issues with pain control and decreased urine output likely due to blood loss anemia. Continue to monitor and manage pain, heart failure, hypertension, diabetes and continue therapy evaluation and treatment. Anticipate discharge to residential facility when stabilized Total Time Spent Total Time Spent: Total time spent today is 45 minutes in coordination of care and discussing with patient and other providers management of postoperative care and chronic medical problems noted above Subjective Date Seen: 06/22/25 Interval history: Joan Peters is a 84 year old female with diabetes mellitus, hypertension, history of heart failure with preserved ejection fraction presents with knee pain after a fall at home yesterday. Patient does not recall the details of what happened yesterday afternoon. She was feeling well, walking around her town home and then found herself on the floor unable to get up because her knee hurt too much. In the emergency department evaluation notable for a right intertrochanteric femur fracture. She was taken to the OR by Dr. Guardado and underwent ORIF which was uncomplicated. She reports generally doing well today except that she is having a lot of pain with movement and weight-bearing. She has had reduced urine output overnight and received a bolus of fluid. She did receive some oxygen for hypoxia without dyspnea overnight. Exam Narrative: Exam Narrative: She is alert and appears in no distress. She is comfortable at rest in bed. Respirations are clear to auscultation. Breathing unlabored. Cardiovascular: S1, S2, regular rate and rhythm. Abdomen is soft without tenderness. Extremities with intact pulses and sensation. No significant edema. Right Hip without obvious erythema drainage or bruising. Const: Vital Signs, click to edit/add: Vital Signs - 24 hr 06/21/25 11:28 06/21/25 11:28 06/21/25 11:30 Temperature 35.8 C L Pulse Rate 85 81 Pulse Rate [Right Pulse Oximeter] 79 Respiratory Rate 18 Blood Pressure Blood Pressure [Ri ght Arm] Blood Pressure [Ri ght Upper Arm] 123/97 H Pulse Oximetry 98 98 99 Oxygen Delivery Me thod Room Air Oxygen Flow Rate 06/21/25 11:31 06/21/25 11:45 06/21/25 12:22 Temperature Pulse Rate 83 82 Pulse Rate [Right Pulse Oximeter] Respiratory Rate 14 15 Blood Pressure 144/125 H 184/105 H Blood Pressure [Ri ght Arm] Blood Pressure [Ri ght Upper Arm] Pulse Oximetry 98 99 Oxygen Delivery Me thod Oxygen Flow Rate 06/21/25 12:23 06/21/25 12:30 06/21/25 12:31 Temperature Pulse Rate 206 H 78 81 Pulse Rate [Right Pulse Oximeter] Respiratory Rate 20 18 21 Blood Pressure 185/96 H Blood Pressure [Ri ght Arm] Blood Pressure [Ri ght Upper Arm] Pulse Oximetry 90 97 97 Oxygen Delivery Me thod Oxygen Flow Rate 06/21/25 12:45 06/21/25 13:00 06/21/25 13:02 Temperature Pulse Rate 80 77 79 Pulse Rate [Right Pulse Oximeter] Respiratory Rate 17 21 18 Blood Pressure 177/83 H Blood Pressure [Ri ght Arm] Blood Pressure [Ri ght Upper Arm] Pulse Oximetry 97 96 94 Oxygen Delivery Me thod Oxygen Flow Rate 06/21/25 13:15 06/21/25 13:30 06/21/25 13:31 Temperature Pulse Rate 83 78 81 Pulse Rate [Right Pulse Oximeter] Respiratory Rate 19 19 16 Blood Pressure 173/75 H Blood Pressure [Ri ght Arm] Blood Pressure [Ri ght Upper Arm] Pulse Oximetry 97 97 97 Oxygen Delivery Me thod Oxygen Flow Rate 06/21/25 13:45 06/21/25 14:00 06/21/25 14:02 Temperature Pulse Rate 80 76 78 Pulse Rate [Right Pulse Oximeter] Respiratory Rate 14 21 15 Blood Pressure 199/87 H Blood Pressure [Ri ght Arm] Blood Pressure [Ri ght Upper Arm] Pulse Oximetry 95 95 95 Oxygen Delivery Me thod Oxygen Flow Rate 06/21/25 14:03 06/21/25 14:15 06/21/25 14:30 Temperature Pulse Rate 77 81 80 Pulse Rate [Right Pulse Oximeter] Respiratory Rate 15 19 17 Blood Pressure Blood Pressure [Ri ght Arm] Blood Pressure [Ri ght Upper Arm] Pulse Oximetry 97 95 96 Oxygen Delivery Me thod Oxygen Flow Rate 06/21/25 14:32 06/21/25 14:45 06/21/25 17:15 Temperature 37.2 C Pulse Rate 83 81 72 Pulse Rate [Right Pulse Oximeter] Respiratory Rate 17 19 16 Blood Pressure 152/138 H 92/46 L Blood Pressure [Ri ght Arm] Blood Pressure [Ri ght Upper Arm] Pulse Oximetry 96 95 92 Oxygen Delivery Me thod Room Air Oxygen Flow Rate 06/21/25 17:20 06/21/25 17:25 06/21/25 17:30 Temperature Pulse Rate 71 68 66 Pulse Rate [Right Pulse Oximeter] Respiratory Rate 16 16 16 Blood Pressure 115/56 L 103/48 L 118/51 L Blood Pressure [Ri ght Arm] Blood Pressure [Ri ght Upper Arm] Pulse Oximetry 93 94 95 Oxygen Delivery Me thod Oxygen Flow Rate 06/21/25 17:35 06/21/25 17:40 06/21/25 17:45 Temperature 37.2 C Pulse Rate 66 67 65 Pulse Rate [Right Pulse Oximeter] Respiratory Rate 16 16 16 Blood Pressure 119/48 L 127/52 L 107/57 L Blood Pressure [Ri ght Arm] Blood Pressure [Ri ght Upper Arm] Pulse Oximetry 93 93 93 Oxygen Delivery Me thod Room Air Oxygen Flow Rate 06/21/25 17:55 06/21/25 18:00 06/21/25 18:45 Temperature 35.8 C L 35.3 C L Pulse Rate Pulse Rate [Right Pulse Oximeter] 74 73 70 Respiratory Rate 12 14 Blood Pressure Blood Pressure [Ri ght Arm] 126/56 L 126/56 L 119/52 L Blood Pressure [Ri ght Upper Arm] Pulse Oximetry 90 94 Oxygen Delivery Me thod Nasal Cannula Nasal Cannula Nasal Cannula Oxygen Flow Rate 2 2 2 06/21/25 19:00 06/21/25 19:00 06/21/25 19:15 Temperature 36.3 C L 36.3 C L 36.4 C L Pulse Rate Pulse Rate [Right Pulse Oximeter] 73 73 71 Respiratory Rate 14 14 16 Blood Pressure Blood Pressure [Ri ght Arm] 120/54 L 120/54 L 130/56 L Blood Pressure [Ri ght Upper Arm] Pulse Oximetry 99 93 97 Oxygen Delivery Me thod Nasal Cannula Nasal Cannula Nasal Cannula Oxygen Flow Rate 1 1 1 06/21/25 19:30 06/21/25 20:00 06/21/25 20:30 Temperature 36.4 C 36.4 C Pulse Rate Pulse Rate [Right Pulse Oximeter] 72 88 95 Respiratory Rate 16 16 16 Blood Pressure Blood Pressure [Ri ght Arm] 147/59 H 149/55 H 140/57 H Blood Pressure [Ri ght Upper Arm] Pulse Oximetry 97 96 97 Oxygen Delivery Me thod Nasal Cannula Nasal Cannula Nasal Cannula Oxygen Flow Rate 1 1 1 06/21/25 21:30 06/21/25 22:48 06/21/25 23:00 Temperature 36.6 C 36.9 C Pulse Rate Pulse Rate [Right Pulse Oximeter] 89 78 Respiratory Rate 16 14 14 Blood Pressure Blood Pressure [Ri ght Arm] 131/82 144/63 H Blood Pressure [Ri ght Upper Arm] Pulse Oximetry 96 93 90 Oxygen Delivery Me thod Nasal Cannula Nasal Cannula Nasal Cannula Oxygen Flow Rate 1 1 1 06/21/25 23:30 06/22/25 03:35 06/22/25 07:58 Temperature 36.6 C 37.1 C 36.7 C Pulse Rate Pulse Rate [Right Pulse Oximeter] 79 83 83 Respiratory Rate 16 14 16 Blood Pressure Blood Pressure [Ri ght Arm] 146/67 H 145/59 H 142/57 H Blood Pressure [Ri ght Upper Arm] Pulse Oximetry 97 94 89 Oxygen Delivery Me thod OxyMask OxyMask Room Air Oxygen Flow Rate 1 1 06/22/25 08:00 Temperature Pulse Rate Pulse Rate [Right Pulse Oximeter] Respiratory Rate 16 Blood Pressure Blood Pressure [Ri ght Arm] Blood Pressure [Ri ght Upper Arm] Pulse Oximetry 89 Oxygen Delivery Me thod Room Air Oxygen Flow Rate Labs Labs: Laboratory Results - last 24 hr 06/21/25 06/21/25 06/21/25 11:42 12:30 14:00 WBC 11.41 H RBC 3.66 L Hgb 11.2 L Hct 33.4 MCV 91 MCH 31 MCHC 34 RDW Coeff of Aimee 13.4 Plt Count 232 Neut % (Auto) 84.9 H Lymph % (Auto) 7.0 L Wells % (Auto) 7.4 Eos % (Auto) 0.0 Baso % (Auto) 0.3 Neut # (Auto) 9.70 H Lymph # (Auto) 0.80 L Wells # (Auto) 0.80 Eos # (Auto) 0.00 Baso # (Auto) 0.00 Abs Immat Gran (auto) 0.00 Imm/Tot Granulo (auto) 0.4 VBG pH VBG pCO2 VBG pO2 VBG HCO3 Sodium 134 L Potassium 4.3 Chloride 100 Carbon Dioxide 27 Anion Gap 7 BUN 14 Creatinine 0.8 Estimated GFR 74 Glucose 214 H Lactate 1.9 Calcium 9.1 Total Bilirubin 0.9 AST 34 ALT 26 Alkaline Phosphatase 86 Total Creatine Kinase 261 H Troponin I < 0.01 NT-Pro-B Natriuret Pep 1140 H Total Protein 7.3 Albumin 4.5 Urine Color Yellow Urine Appearance Clear Urine pH 6.0 Ur Specific [place] 1.025 Urine Protein 3+ A Urine Glucose (UA) Trace A Urine Ketones 1+ A Urine Blood 2+ A Urine Nitrite Negative Urine Bilirubin Negative Urine Urobilinogen 0.2 Ur Leukocyte Esterase Negative Urine RBC 2-5 A Urine WBC 2-5 Ur Squamous Epith Cells Few Urine Bacteria Few A Coarse Granular Casts Few A Urine Opiates Screen Negative Ur Oxycodone Screen Negative Urine Methadone Screen Negative Ur Barbiturates Screen POSITIVE A U Tricyclic Antidepress Negative Ur Phencyclidine Scrn Negative Ur Amphetamines Screen Negative U Methamphetamines Scrn Negative U Benzodiazepines Scrn Negative Urine Cocaine Screen Negative U Marijuana (THC) Screen Negative Ur Drug Screen Comment See Note Ethyl Alcohol < 0.01 SARS-CoV-2 (PCR) Negative SARS-CoV-2 Influenza Type A (PCR) Negative PCR FLU A Influenza Type B (PCR) Negative PCR FLU B RSV (PCR) Negative PCR RSV Lab Acknowledgement 06/21/25 06/22/25 06/22/25 15:39 07:10 08:30 WBC 10.03 RBC 2.93 L Hgb 9.0 L Hct 28.2 L MCV 96 MCH 31 MCHC 32 RDW Coeff of Aimee 13.7 Plt Count 175 Neut % (Auto) 75.8 H Lymph % (Auto) 14.3 L Wells % (Auto) 8.9 Eos % (Auto) 0.4 Baso % (Auto) 0.4 Neut # (Auto) 7.60 H Lymph # (Auto) 1.40 Wells # (Auto) 0.90 Eos # (Auto) 0.04 Baso # (Auto) 0.04 Abs Immat Gran (auto) 0.02 Imm/Tot Granulo (auto) 0.2 VBG pH 7.371 VBG pCO2 44 VBG pO2 < 30.1 VBG HCO3 25 Sodium 133 L Potassium 4.1 Chloride 101 Carbon Dioxide 26 Anion Gap 6 L BUN 17 Creatinine 1.0 Estimated GFR 56 Glucose 204 H Lactate Calcium 8.0 L Total Bilirubin AST ALT Alkaline Phosphatase Total Creatine Kinase Troponin I NT-Pro-B Natriuret Pep Total Protein Albumin Urine Color Urine Appearance Urine pH Ur Specific [place] Urine Protein Urine Glucose (UA) Urine Ketones Urine Blood Urine Nitrite Urine Bilirubin Urine Urobilinogen Ur Leukocyte Esterase Urine RBC Urine WBC Ur Squamous Epith Cells Urine Bacteria Coarse Granular Casts Urine Opiates Screen Ur Oxycodone Screen Urine Methadone Screen Ur Barbiturates Screen U Tricyclic Antidepress Ur Phencyclidine Scrn Ur Amphetamines Screen U Methamphetamines Scrn U Benzodiazepines Scrn Urine Cocaine Screen U Marijuana (THC) Screen Ur Drug Screen Comment Ethyl Alcohol SARS-CoV-2 (PCR) Influenza Type A (PCR) Influenza Type B (PCR) RSV (PCR) Lab Acknowledgement Test Added
--- NOTE | 2025-06-22 12:33 | PC.SOCIAL ---
Addendum entered by MARIANO Taylor 06/22/25 15:28: Discharge planning: Sent referral to [facility] and awaiting decision on admit. Also sent referral to [facility] and was informed they are currently full with not expected availability this week. workers compensation attorney to follow up as needed. Original Note: Discharge planning: Met with pt and family in room regarding plan. All are in agreement with requesting short term rehab placement for pt at discharge prior to returning home. Pt has done short term rehab previously and was pleased with this as a transition from hospital to home. Pt is requesting placement in the following facilities in the orders listed: [facility], [facility] and [facility]. Emailed [facility] and awaiting information on bed availability. Anticipated discharge is Sunday. PT is expected to have a Medicare qualifying acute stay prior to discharge. workers compensation attorney to follow up as needed
--- NOTE | 2025-06-22 19:11 | PC.NURSE ---
End of shift [id number]: Pt AxOx3. SL to R AC. A2 SS with transfers to the recliner. CMS intact of the R hip, active ice applied. Pts pain is being managed with PRN medication and repositioning. Pt has a poor appetite. Restaurant Supervisor continued to encourage fluids throughout the shift due to low urinary output. MD Blood and Padmaja updated throughout the shift regarding PRN bolus order due to Pts hx of HF. Dejesus remains in place due to low output. Up with therapies today. Bed alarm in place. SCDs in place. Call light within reach.
[2025-06-22] MEDS: METFORMIN ER 500 MG 1000 MG PO (21:14)
[2025-06-22] MEDS: ROSUVASTATIN CALCIUM 10 MG TABLET 40 MG PO (21:14)
[2025-06-23] VITALS (8 sets, daily range): BP systolic 96–133; BP diastolic 50–66; PULSE 73–88; RESP 16–18; TEMP 36.2–36.9; O2SAT 90–94
[2025-06-23] MEDS: ONDANSETRON 2 MG/ML inj 4 MG IVP (00:19)
[2025-06-23 06:34] LABS: Hematocrit* 25.5 % (33.0-51.0); Hemoglobin* 8.0 gm/dL (12.0-16.0); Immature Granulocytes Abs Auto 0.02 K/uL (0.00-0.30); Immature Granulocytes Pct Auto 0.2 %; Lymphocytes Absolute Auto 1.74 K/uL (0.90-2.90); Mean Corpuscular HGB Conc 31 gm/dL (32-36); Mean Corpuscular Hemoglobin 31 pg (26-34); Mean Corpuscular Volume 98 fL (80-100); RDW Coefficient of Variation % 13.6 % (11.5-15.5); Red Blood Count* 2.60 m/uL (4.00-5.20); White Blood Count* 8.32 K/uL (4.50-11.00)
[2025-06-23 06:40] LABS: Slide Review Reflex No
[2025-06-23 06:43] LABS: Chloride* 104 mmol/L (96-114); Potassium* 4.0 mmol/L (3.6-5.1); Sodium* 131 mmol/L (135-149)
[2025-06-23 06:46] LABS: Anion Gap 4 mEq/L (7-15); Blood Urea Nitrogen* 22 mg/dL (7-30); Calcium* 7.6 mg/dL (8.4-10.6); Carbon Dioxide* 23 mmol/L (20-32); Creatinine* 1.2 mg/dL (0.5-1.5); Estimated Glomerular Filt Rate 45 ml/min; Glucose* 192 mg/dL (60-115)
--- NOTE | 2025-06-23 07:26 | PC.NURSE ---
End of Shift Note 249 Patient was pleasant and cooperative throughout the shift. VSS. Afebrile. A&Ox3. Patient did not tolerate standing for daily weight. Patient stated she was having unbearable pain. 04/17. Bed scale used. Uses call light appropriately. Call light within reach.
--- NOTE | 2025-06-23 08:42 | PC.SOCIAL ---
Discharge planning: Received email from admissions at [facility] stating they can accept pt to private rehab room at discharge. Currently discharge is expected 06/24/25. casino worker to follow up as needed.
--- NOTE | 2025-06-23 09:02 | PM.ORPN ---
Subjective Subjective Time Seen by Provider: 09:02 Date Seen: 06/23/25 Principal diagnosis: status post Rt hip rodding 06-21-25 Interval history: Joan is comfortable at rest. She has pain with movement. She feels depressed a her current situation. She will be discharging to a alf facility when a site is available and when she is medically appropriate. Ortho Exam Narrative Exam Narrative: Alert and oriented x3. Patient is in no acute distress. Converses without labored breathing. Hearing is grossly intact. Ambulates with a walker, she has been 2 person assist. Examination of the right lower extremity shows soft tissue edema is present. Dressings are intact. CMS intact right lower extremity. The calves are soft and nontender. Const Vital Signs, click to edit/add: Vital Signs - 24 hr 06/22/25 11:21 06/22/25 14:23 06/22/25 14:34 Temperature 99.1 F 98.2 F Pulse Rate [Right Pulse Oximeter] 89 82 Respiratory Rate 18 18 18 Blood Pressure [Right Arm] 129/55 L 143/52 H Pulse Oximetry 90 90 90 Oxygen Delivery Method Room Air Room Air Room Air Oxygen Flow Rate 06/22/25 19:00 06/22/25 23:00 06/22/25 23:00 Temperature 98.7 F 98.0 F Pulse Rate [Right Pulse Oximeter] 98 92 Respiratory Rate 18 18 Blood Pressure [Right Arm] 113/72 112/55 L Pulse Oximetry 91 90 91 Oxygen Delivery Method Room Air OxyMask OxyMask Oxygen Flow Rate 2 2 06/23/25 03:00 06/23/25 08:15 06/23/25 08:28 Temperature 97.4 F L 98.4 F Pulse Rate [Right Pulse Oximeter] 83 85 Respiratory Rate 18 18 18 Blood Pressure [Right Arm] 133/58 L 108/66 Pulse Oximetry 90 94 94 Oxygen Delivery Method OxyMask Room Air Room Air Oxygen Flow Rate 1 Documenting provider has reviewed patient's vital signs: yes Assessment and Plan Assessment and plan (1) Intertrochanteric fracture of right hip: Problem details: 06-21-25, Dr. Guardado. No complications. Status: Acute Assessment and Plan: Plan for discharge is to alf facility when she meets discharge criteria. DVT prophylaxis upon discharge includes Xarelto 10mg daily for a total of 35 days total. Remove dressings in 2 weeks. Observe wound and phone Orthopedics with any questions or concerns Use Ice on operative hip unrestricted. Return to clinic in 4 weeks with surgeon Minimize narcotic use. Wean off and discontinue soon as possible. Weightbear as tolerated right lower extremity Attend OT and PT at alf facility.
[2025-06-23] MEDS: PRIMIDONE 50 MG TABLET 100 MG PO ×3 (09:04→20:39)
[2025-06-23] MEDS: OMEPRAZOLE 20 MG CAPSULE DR 40 MG PO ×2 (09:04→20:37)
[2025-06-23] MEDS: EZETIMIBE 10 MG TABLET PO (09:05)
[2025-06-23] MEDS: GLIMEPIRIDE 1 MG TABLET PO (09:05)
[2025-06-23] MEDS: METFORMIN ER 500 MG 1000 MG PO ×2 (09:05→20:37)
[2025-06-23] MEDS: RIVAROXABAN 10 MG TABLET PO (09:05)
[2025-06-23] MEDS: SENNOSIDES 1 TAB TABLET 2 TAB PO ×2 (09:05→20:36)
[2025-06-23] MEDS: 0.9 % SODIUM CHLORIDE 500 ML IV ×3 (09:18→22:41)
[2025-06-23] MEDS: INSULIN ASPART 100 UNIT/ML SUBCUT ×3 (09:18→18:02)
[2025-06-23] MEDS: CELECOXIB 200 MG CAPSULE PO (09:43)
--- NOTE | 2025-06-23 12:01 | P.IMPN_ITS ---
Assessment and Plan Assessment and plan (1) Intertrochanteric fracture of right hip: Problem comment: 06-21-25, Dr. Guardado. No complications. Slow recovery, anxiety about activity and pain. Status: Acute (2) Fall: Problem comment: Unclear details of the events leading to the fall. Possible syncope. Recent extensive cardiac evaluation is reassuring. quality assurance specialist in the perioperative time looking for dysrhythmia. Status: Acute (3) Heart failure with preserved ejection fraction: Problem comment: Echocardiogram from 01/20/2025:TTE 01/20/25 1. Normal LV size, normal wall thickness, normal global systolic function with an estimated EF of 65 - 70%. 2. Severely enlarged left atrium. 3. The mitral valve is normal, mild mitral regurgitation. 4. Tricuspid valve is normal, mild tricuspid regurgitation. This has been well managed and asymptomatic for the past several months Resume heart failure medicines as soon as tolerated. Status: Acute (4) Osteoporosis: Problem comment: Now has osteoporosis by definition with fragility fracture. Consider treatment with calcium, vitamin-D and Fosamax at discharge Status: Acute (5) Blood loss anemia: Problem comment: From right intertrochanteric femur fracture. Monitor vitals, urine output, hemoglobin. Fluids and blood if needed. Status: Acute (6) Anxiety about treatment: Problem comment: Very anxious about moving. Continue encourage activity. Manage pain. Status: Acute (7) Uncontrolled pain: Problem comment: Patient very apprehensive about moving leg or standing due to pain. Continue to encourage activity and manage pain Status: Acute (8) Discharge planning issues: Problem comment: Likely will need long term facility for rehab prior to returning home Status: Acute (9) BLOSSOM (acute kidney injury): Problem comment: Creatinine increased from 0.8-1.2 with low urine output over the last 2 days. Fluid resuscitation has been cautious due to heart failure concerns. Status: Acute (10) Hypoxia: Problem comment: Patient has been having nocturnal hypoxia likely due to undiagnosed sleep apnea and opioid use. Status: Acute Total Time Spent Total Time Spent: Total time spent today is 55 minutes in coordination of care and discussing with patient and other providers management of hip fracture, pain, anxiety, hypoxia, catheter removal. Subjective Date Seen: 06/23/25 Interval history: Joan Peters is a 84 year old female with diabetes mellitus, hypertension, history of heart failure with preserved ejection fraction presents with knee pain after a fall at home yesterday. Patient does not recall the details of what happened yesterday afternoon. She was feeling well, walking around her town home and then found herself on the floor unable to get up because her knee hurt too much. In the emergency department evaluation notable for a right intertrochanteric femur fracture. She was taken to the OR by Dr. Guardado and underwent ORIF which was uncomplicated. She reports generally doing well today except that she is having a lot of pain with movement and weight-bearing. She has had reduced urine output overnight and received a bolus of fluid. She did receive some oxygen for hypoxia without dyspnea overnight. 06/23/2025: Patient reports distress about her current situation. She reports severe pain with activity. She has ongoing IV pain medications. She is relatively comfortable at rest but is severe pain with activity. She is apprehensive about moving around because of the pain and she is worried that she will never be able to walk again. She continues to have some hypoxia at night suggestive of undiagnosed sleep apnea exacerbated by opioid pain medicine Exam Narrative: Exam Narrative: She is alert and appears in no distress. Speech is normal. Breathing is unlabored. A few basilar crackles. Cardiovascular: S1, S2, regular rate and rhythm. She is unable to move her right lower extremity in bed, flex at the hip or knee secondary to pain. Distally intact pulses. Trace edema. Const: Vital Signs, click to edit/add: Vital Signs - 24 hr 06/22/25 14:23 06/22/25 14:34 06/22/25 19:00 Temperature 36.8 C 37.1 C Pulse Rate [Right Pulse Oximeter] 82 98 Respiratory Rate 18 18 18 Blood Pressure [Ri ght Arm] 143/52 H 113/72 Pulse Oximetry 90 90 91 Oxygen Delivery Me thod Room Air Room Air Room Air Oxygen Flow Rate 06/22/25 23:00 06/22/25 23:00 06/23/25 03:00 Temperature 36.7 C 36.3 C L Pulse Rate [Right Pulse Oximeter] 92 83 Respiratory Rate 18 18 Blood Pressure [Ri ght Arm] 112/55 L 133/58 L Pulse Oximetry 90 91 90 Oxygen Delivery Me thod OxyMask OxyMask OxyMask Oxygen Flow Rate 2 2 1 06/23/25 08:15 06/23/25 08:28 06/23/25 11:22 Temperature 36.9 C 36.9 C Pulse Rate [Right Pulse Oximeter] 85 80 Respiratory Rate 18 18 16 Blood Pressure [Ri ght Arm] 108/66 100/50 L Pulse Oximetry 94 94 90 Oxygen Delivery Me thod Room Air Room Air OxyMask Oxygen Flow Rate 0.5 Documenting provider has reviewed patient's vital signs: yes Labs Labs: Laboratory Results - last 24 hr 06/23/25 05:38 WBC 8.32 RBC 2.60 L Hgb 8.0 L Hct 25.5 L MCV 98 MCH 31 MCHC 31 L RDW Coeff of Aimee 13.6 Plt Count 158 Neut % (Auto) 70.8 Lymph % (Auto) 20.9 [place] % (Auto) 7.0 Eos % (Auto) 0.5 Baso % (Auto) 0.6 Neut # (Auto) 5.89 Lymph # (Auto) 1.74 [place] # (Auto) 0.60 Eos # (Auto) 0.04 Baso # (Auto) 0.05 Abs Immat Gran (auto) 0.02 Imm/Tot Granulo (auto) 0.2 Sodium 131 L Potassium 4.0 Chloride 104 Carbon Dioxide 23 Anion Gap 4 L BUN 22 Creatinine 1.2 Estimated GFR 45 Glucose 192 H Calcium 7.6 L
--- NOTE | 2025-06-23 18:53 | PC.NURSE ---
End of shift [id number]: Pt AxOx3. Therapeutic communication done throughout the shift due to Pt reporting feeling depressed and reporting fear to get up and not fall. SL to R AC. A2 SS with transfers to the recliner. Tolerating okay. Up for meals. Repositioning q2h with assessing brief. Up with therapies today. CMS intact of the R hip, active ice applied. CDI. Pts pain is being managed with PRN medication, active ice, and repositioning. Pt has continued poor appetite, encouragement given by real estate underwriter regarding protein intake. Color Drum Worker continued to encourage fluids throughout the shift due to low urinary output. MD Blood and Kirsty updated throughout the shift regarding PRN bolus order due to Pts hx of HF with no urinary output since 929. Dejesus removed this am and Pt has not urinated since. Bladder scanned for 68cc, 500 cc bolus ordered per MD Lo[place]on. Pt up in chair eating dinner. Call light within reach.
[2025-06-23] MEDS: ROSUVASTATIN CALCIUM 10 MG TABLET 40 MG PO (20:37)
--- NOTE | 2025-06-23 21:33 | CRLHL7_ITS ---
For Patients: As a result of the Century Cures Act, medical imaging exams and procedure reports are released immediately into your electronic medical record. You may view this report before your referring provider. If you have questions, please contact your health care provider. CLINICAL HISTORY: Anuria COMPARISON: none TECHNIQUE: Guan scale and color Doppler images were acquired of the kidneys and urinary bladder. FINDINGS: Sonographic images reveal a symmetric appearance of the kidneys. There is no evidence of hydronephrosis, mass or calculus. The right kidney measures 11.5cm in length and the left kidney measures 11.4cm in length. The renal cortex appears of normal thickness. Normal color Doppler imaging of both kidneys. There is no evidence of bladder calculi or diverticula. Bladder volume 90 cc. Patient unable to void. IMPRESSION: Hydronephrosis. Dictated by El Aquino MD @ 06/24/2025 7:45:55 AM (Electronically Signed)
[2025-06-24] VITALS (12 sets, daily range): BP systolic 113–147; BP diastolic 51–67; PULSE 67–93; RESP 16–18; TEMP 36.3–37; O2SAT 90–97
[2025-06-24] MEDS: ACETAMINOPHEN 325 MG TABLET 650 MG PO ×2 (03:20→22:06)
[2025-06-24 06:18] LABS: Hematocrit* 23.0 % (33.0-51.0); Immature Granulocytes Abs Auto 0.02 K/uL (0.00-0.30); Immature Granulocytes Pct Auto 0.2 %; Mean Corpuscular HGB Conc 31 gm/dL (32-36); Mean Corpuscular Hemoglobin 31 pg (26-34); Mean Corpuscular Volume 100 fL (80-100); RDW Coefficient of Variation % 13.6 % (11.5-15.5); Red Blood Count* 2.29 m/uL (4.00-5.20); White Blood Count* 8.81 K/uL (4.50-11.00)
--- NOTE | 2025-06-24 06:24 | PC.NURSE ---
End of shift Note 249 Patient was pleasant and cooperative throughout shift. VSS. Afebrile. Patient tolerated sitting on commode during the evening without any voiding result. Patient declined any more requests to try the commode again. Surgical dressings dry and intact. Ice in place. A&Ox3. Uses call light appropriately. Call light within reach.
[2025-06-24 06:30] LABS: Hemoglobin* 7.1 gm/dL (12.0-16.0); Lymphocytes Absolute Auto 1.50 K/uL (0.90-2.90)
--- NOTE | 2025-06-24 06:34 | PC.NURSE ---
Casing Finisher And Stuffer called Rad at this time and left message regarding critical Hgb of 7.1. Pt's primary RN aware.
[2025-06-24 07:47] LABS: Chloride* 103 mmol/L (96-114); Sodium* 131 mmol/L (135-149)
[2025-06-24 07:48] LABS: Potassium* 4.1 mmol/L (3.6-5.1)
[2025-06-24 07:50] LABS: Blood Urea Nitrogen* 30 mg/dL (7-30); Creatinine* 1.8 mg/dL (0.5-1.5); Est. Creatinine Clearance* 20.81; Estimated Glomerular Filt Rate 28 ml/min
[2025-06-24 07:51] LABS: Anion Gap 8 mEq/L (7-15); Calcium* 7.3 mg/dL (8.4-10.6); Carbon Dioxide* 20 mmol/L (20-32); Glucose* 129 mg/dL (60-115)
[2025-06-24] MEDS: CELECOXIB 200 MG CAPSULE PO (08:40)
[2025-06-24] MEDS: EZETIMIBE 10 MG TABLET PO (08:40)
[2025-06-24] MEDS: OMEPRAZOLE 20 MG CAPSULE DR 40 MG PO ×2 (08:40→21:30)
[2025-06-24] MEDS: GLIMEPIRIDE 1 MG TABLET PO (08:41)
[2025-06-24] MEDS: METFORMIN ER 500 MG 1000 MG PO ×2 (08:41→21:29)
[2025-06-24] MEDS: PRIMIDONE 50 MG TABLET 100 MG PO ×3 (08:41→21:30)
[2025-06-24] MEDS: RIVAROXABAN 10 MG TABLET PO (08:44)
[2025-06-24] MEDS: SENNOSIDES 1 TAB TABLET 2 TAB PO ×2 (08:44→21:32)
--- NOTE | 2025-06-24 12:00 | PM.IMPN1 ---
Assessment and Plan Assessment and plan (1) Intertrochanteric fracture of right hip: Problem comment: 06-21-25, Dr. Guardado. No complications. Slow recovery, anxiety about activity and pain. Status: Acute (2) Fall: Problem comment: Unclear details of the events leading to the fall. Possible syncope. Recent extensive cardiac evaluation is reassuring. arm rest builder in the perioperative time looking for dysrhythmia. Status: Acute (3) BLOSSOM (acute kidney injury): Problem comment: Likely due to volume depletion from blood loss. Creatinine increased from 0.8-1.8 with low urine output over the last 3 days. Continuing to get fluid boluses for poor urine output. Caution with heart failure. Started on Celebrex for pain control as well. Blood transfusion today Status: Acute (4) Heart failure with preserved ejection fraction: Problem comment: Echocardiogram from 01/20/2025:TTE 01/20/25 1. Normal LV size, normal wall thickness, normal global systolic function with an estimated EF of 65 - 70%. 2. Severely enlarged left atrium. 3. The mitral valve is normal, mild mitral regurgitation. 4. Tricuspid valve is normal, mild tricuspid regurgitation. This has been well managed and asymptomatic for the past several months Resume heart failure medicines as soon as tolerated. Continued caution with fluid resuscitation for poor urine output with heart failure diagnosis Status: Acute (5) Hypoxia: Problem comment: Patient has been having nocturnal hypoxia likely due to undiagnosed sleep apnea and opioid use. Continue to monitor Status: Acute (6) Osteoporosis: Problem comment: Now has osteoporosis by definition with fragility fracture. Consider treatment with calcium, vitamin-D and Fosamax at discharge Status: Acute (7) Blood loss anemia: Problem comment: Hemoglobin continues to drift down. Blood loss is primarily from fracture with small blood loss at surgery and probable continued oozing of blood from fracture well on anticoagulation for VTE prevention. Transfuse 1 unit blood today Status: Acute (8) Anxiety about treatment: Problem comment: Very anxious about moving. Continue encourage activity. Manage pain. Status: Acute (9) Uncontrolled pain: Problem comment: Patient very apprehensive about moving leg or standing due to pain. Continue to encourage activity and manage pain Status: Acute (10) Discharge planning issues: Problem comment: Likely will need [facility] facility for rehab prior to returning home Status: Acute Plan Continue in hospital for management of blood-loss anemia with transfusion, ongoing management of pain. Anticipate discharge to long-term when heart failure, acute kidney injury, blood loss anemia have stabilized or improved. Total Time Spent Total Time Spent: Total time spent today is 45 minutes in coordination of care and discussing with patient, other providers and her sister ongoing plan of care. Subjective Date Seen: 06/24/25 Interval history: Joan Peters is a 84 year old female with diabetes mellitus, hypertension, history of heart failure with preserved ejection fraction presents with knee pain after a fall at home yesterday. Patient does not recall the details of what happened yesterday afternoon. She was feeling well, walking around her town home and then found herself on the floor unable to get up because her knee hurt too much. In the emergency department evaluation notable for a right intertrochanteric femur fracture. She was taken to the OR by Dr. Guardado and underwent ORIF which was uncomplicated. She reports generally doing well today except that she is having a lot of pain with movement and weight-bearing. She has had reduced urine output overnight and received a bolus of fluid. She did receive some oxygen for hypoxia without dyspnea overnight. 06/23/2025: Patient reports distress about her current situation. She reports severe pain with activity. She has ongoing IV pain medications. She is relatively comfortable at rest but is severe pain with activity. She is apprehensive about moving around because of the pain and she is worried that she will never be able to walk again. She continues to have some hypoxia at night suggestive of undiagnosed sleep apnea exacerbated by opioid pain medicine 06/24/2025: Patient and therapists both indicate her pain control is improved today. She continues to have poor urine output and has received recurrent boluses of fluid. She is not eating and drinking much. Making very slow progress with mobility. Did not require supplemental oxygen during the night last night Exam Narrative: Exam Narrative: She is alert and appears in no distress lying in bed. She is observed with therapy to will moved very slowly with bed exercises. Respirations are clear to auscultation without wheezing rales or rhonchi. Cardiovascular: S1, S2, regular rate and rhythm. Abdomen is soft without tenderness or mass. Bowel sounds are active. Some swelling of the right hip and thigh without bruising or erythema. Distally she has trace edema intact pedal pulses the and motion and strength in both the Const: Vital Signs, click to edit/add: Vital Signs - 24 hr 06/23/25 14:15 06/23/25 14:15 06/23/25 19:00 Temperature 36.9 C 36.6 C Pulse Rate Pulse Rate [Right Pulse Oximeter] 73 88 Respiratory Rate 16 16 18 Blood Pressure Blood Pressure [Ri ght Arm] 96/50 L 108/54 L Pulse Oximetry 94 94 93 Oxygen Delivery Me thod Room Air Room Air Room Air 06/23/25 22:18 06/23/25 23:00 06/24/25 03:00 Temperature 36.2 C L 36.3 C L Pulse Rate Pulse Rate [Right Pulse Oximeter] 82 86 Respiratory Rate 16 16 Blood Pressure Blood Pressure [Ri ght Arm] 123/60 134/59 L Pulse Oximetry 93 94 93 Oxygen Delivery Me thod Room Air Room Air Room Air 06/24/25 07:00 06/24/25 07:00 06/24/25 07:00 Temperature 36.4 C Pulse Rate Pulse Rate [Right Pulse Oximeter] 67 67 Respiratory Rate 16 16 16 Blood Pressure Blood Pressure [Ri ght Arm] 113/51 L Pulse Oximetry 90 90 Oxygen Delivery Nh thod Room Air Room Air 06/24/25 11:27 Temperature 37.0 C Pulse Rate 72 Pulse Rate [Right Pulse Oximeter] Respiratory Rate 16 Blood Pressure 119/58 L Blood Pressure [Ri ght Arm] Pulse Oximetry 91 Oxygen Delivery Me thod Room Air Labs Labs: Laboratory Results - last 24 hr 06/24/25 06/24/25 06:00 07:00 WBC 8.81 RBC 2.29 L Hgb 7.1 L* Hct 23.0 L MCV 100 MCH 31 MCHC 31 L RDW Coeff of Aimee 13.6 Plt Count 160 Neut % (Auto) 75.6 H Lymph % (Auto) 16.9 L [place] % (Auto) 6.0 Eos % (Auto) 1.0 Baso % (Auto) 0.3 Neut # (Auto) 6.70 Lymph # (Auto) 1.50 [place] # (Auto) 0.50 Eos # (Auto) 0.09 Baso # (Auto) 0.03 Abs Immat Gran (auto) 0.02 Imm/Tot Granulo (auto) 0.2 Sodium 131 L Potassium 4.1 Chloride 103 Carbon Dioxide 20 Anion Gap 8 BUN 30 Creatinine 1.8 H Estimated Creat Clear 20.81 Estimated GFR 28 Glucose 129 H Calcium 7.3 L Lab Acknowledgement Test Added Blood Type O Positive Antibody Screen NEGATIVE Crossmatch ([facility]) See Detail
[2025-06-24] MEDS: FUROSEMIDE 10 MG/ML inj IVP (14:14)
--- NOTE | 2025-06-24 14:50 | PC.SOCIAL ---
Addendum entered by MARIANO Taylor 06/24/25 14:58: PAS submitted 06/23/25 confirmation #[id number]. Original Note: Discharge planning: Per MD, pt will likely be ready for discharge to retirement tomorrow. PT had been accepted for admit today to [facility] for a Medicare covered stay. Met with sister who is visiting for update. She is aware and agrees with plan for discharge tomorrow to [facility]. Provided family with signed Important Message from Medicare and explained appeal process if needed. Sister shared she trusts MD to make a decision about discharge and currently agrees with planned discharge tomorrow. Sister is pleased with plan for non-emergency EMS transport which is expected to meet criteria for insurance coverage of transport. Spoke with Iris, admissions at [facility] who states pt can arrive tomorrow for admission. PAS has already been completed. Facility is requesting pt arrive early in the day (before noon) if possible with a cut off time for arrival of 2:00. Facility will need a negative COVID test completed at the hospital and sent to facility prior to discharge. family support worker to follow up as needed.
[2025-06-24 15:19] LABS: Slide Review Reflex No
[2025-06-24 16:15] LABS: Hemoglobin* 8.8 gm/dL (12.0-16.0)
--- NOTE | 2025-06-24 19:04 | PC.NURSE ---
End of shift: VSS on RA tolerating a diabetic diet. Patient afebrile this shift. Patient received 1 unit of PRBC and tolerated well, no infusion reaction noted. Patient up with 2 assist/allison steady to BSC and up to Chair for meals. denies N/V/SOB or pain.
[2025-06-24] MEDS: ROSUVASTATIN CALCIUM 10 MG TABLET 40 MG PO (21:32)
[2025-06-25 03:19] VITALS: BP 124/63; PULSE 72; RESP 16; TEMP 36.8; O2SAT 95
[2025-06-25 06:32] LABS: Hematocrit* 26.7 % (33.0-51.0); Hemoglobin* 8.4 gm/dL (12.0-16.0); Immature Granulocytes Abs Auto 0.02 K/uL (0.00-0.30); Immature Granulocytes Pct Auto 0.3 %; Mean Corpuscular HGB Conc 32 gm/dL (32-36); Mean Corpuscular Hemoglobin 31 pg (26-34); Mean Corpuscular Volume 99 fL (80-100); RDW Coefficient of Variation % 13.7 % (11.5-15.5); Red Blood Count* 2.71 m/uL (4.00-5.20); White Blood Count* 7.33 K/uL (4.50-11.00)
[2025-06-25 06:39] LABS: Lymphocytes Absolute Auto 1.20 K/uL (0.90-2.90); Slide Review Reflex No
[2025-06-25 06:44] LABS: Chloride* 103 mmol/L (96-114); Potassium* 4.0 mmol/L (3.6-5.1); Sodium* 133 mmol/L (135-149)
[2025-06-25 06:47] LABS: Anion Gap 8 mEq/L (7-15); Blood Urea Nitrogen* 29 mg/dL (7-30); Carbon Dioxide* 22 mmol/L (20-32); Creatinine* 1.5 mg/dL (0.5-1.5); Est. Creatinine Clearance* 24.97; Estimated Glomerular Filt Rate 35 ml/min
--- NOTE | 2025-06-25 06:47 | PC.NURSE ---
End of shift note [id number]: Pt A&O x4. She has been denying nausea when asked with no vomiting noted. VSS- pt has been afebrile and on RA throughout the shift. She is requiring?assist?of 2 with pivot transferring to BSC with staff encouragement provided. IS education provided with return demonstration from pt completed. Pt refusing to be repositioned in bed when educated/encouraged and?refusing for?staff to place pillow under RLE to offload pressure.?Dressings to lateral RLE noted to be C/D/I upon inspection. CWMS to RLE intact.?Covid test completed and sent to lab per SNF request if pt is discharging today. Pt has been continent of bowel & bladder throughout the shift. Bed alarm on for safety and call light within reach.??
[2025-06-25 06:48] LABS: Calcium* 8.1 mg/dL (8.4-10.6); Glucose* 93 mg/dL (60-115)
[2025-06-25 07:00] VITALS: BP 123/74; PULSE 87; RESP 16; TEMP 36.9; O2SAT 95
[2025-06-25 07:13] LABS: SARS PCR* Negative SARS-CoV-2 (Negative)
[2025-06-25] MEDS: RIVAROXABAN 10 MG TABLET PO (09:13)
[2025-06-25] MEDS: EZETIMIBE 10 MG TABLET PO (09:13)
[2025-06-25] MEDS: OMEPRAZOLE 20 MG CAPSULE DR 40 MG PO (09:13)
[2025-06-25] MEDS: SENNOSIDES 1 TAB TABLET 2 TAB PO (09:13)
[2025-06-25] MEDS: GLIMEPIRIDE 1 MG TABLET PO (09:14)
[2025-06-25] MEDS: PRIMIDONE 50 MG TABLET 100 MG PO (09:14)
[2025-06-25] MEDS: METFORMIN ER 500 MG 1000 MG PO (09:14)
[2025-06-25] MEDS: SODIUM CHLORIDE 0.9 % (FLUSH) 10 ML SYRINGE 5 ML IVF (09:15)
--- NOTE | 2025-06-25 09:59 | P.DS_ITS ---
DS: Providers Provider Date Seen: 06/25/25 Date of admission: 06/21/25 18:13 Primary care physician: Deb Harris PA-C Admitting Clinician: Yg Escalera MD Attending Physician on discharge: Pramod Blood MD Date of Discharge: 06/25/25 DS: Diagnosis Discharge Diagnosis (1) Intertrochanteric fracture of right hip: Status: Acute Problem details: 06-21-25, Dr. Guardado. No complications. Slow recovery, anxiety about activity and pain. Weight-bearing as tolerated (2) Fall: Status: Acute Problem details: Unclear details of the events leading to the fall. Possible syncope. Recent extensive cardiac evaluation is reassuring. quality assurance monitor body in the perioperative time looking for dysrhythmia. No significant abnormalities of vital signs, cardiac monitoring or symptoms to suggest syncope during hospital stay. (3) BLOSSOM (acute kidney injury): Status: Acute Problem details: Likely due to volume depletion from blood loss. Creatinine increased from 0.8-1.8-1.5 at discharge with low urine output. Improved with fluid resuscitation and blood transfusion. Held blood pressure medications. Resume blood pressure medicines as tolerated. Close monitoring of electrolytes. (4) Heart failure with preserved ejection fraction: Status: Acute Problem details: Echocardiogram from 01/20/2025:TTE 01/20/25 1. Normal LV size, normal wall thickness, normal global systolic function with an estimated EF of 65 - 70%. 2. Severely enlarged left atrium. 3. The mitral valve is normal, mild mitral regurgitation. 4. Tricuspid valve is normal, mild tricuspid regurgitation. This has been well managed and asymptomatic for the past several months Patient is being treated with Celebrex which increases her risk for heart failure exacerbation. Close monitoring of heart failure is needed. Restart benazepril as blood pressure allows. Stop Celebrex as soon as possible. Monitor electrolytes as well. (5) Hypoxia: Status: Acute Problem details: Patient has been having nocturnal hypoxia likely due to undiagnosed sleep apnea and opioid use. Continue to monitor. Outpatient sleep study recommended after recovery from hip fracture (6) Osteoporosis: Status: Acute Problem details: Now has osteoporosis by definition with fragility fracture. Consider treatment with calcium, vitamin-D and Fosamax at discharge (7) Blood loss anemia: Status: Acute Problem details: Hemoglobin continues to drift down. Blood loss is primarily from fracture with small blood loss at surgery and probable continued oozing of blood from fracture well on anticoagulation for VTE prevention. Transfuse 1 unit blood. (8) Anxiety about treatment: Status: Acute Problem details: Very anxious about moving. Continue encourage activity. Manage pain. Patient was on outpatient alprazolam p.r.n.. This was held during the hospital stay due to concerns about co administration with opioids and excessive sedation (9) Uncontrolled pain: Status: Acute Problem details: Patient very apprehensive about moving leg or standing due to pain. Pain control and anxiety about pain are improving (10) Discharge planning issues: Status: Acute Problem details: Discharge to residential facility. Eventually patient is hoping to go home to live independently. She would like to be with her family at [place] as virgilio soni (11) HTN (hypertension): Status: Acute Problem details: Resume home medications as blood pressure allows. Closely monitor renal function/electrolytes (12) Essential tremor: Status: Acute Problem details: Primidone, propranolol for tremor continued DS: Summary Hospital Course Hospital Course: Joan Peters is a 84 year old female with diabetes mellitus, hypertension, history of heart failure with preserved ejection fraction presents with knee pain after a fall at home yesterday. Patient does not recall the details of what happened yesterday afternoon. She was feeling well, walking around her town home and then found herself on the floor unable to get up because her knee hurt too much. In the emergency department evaluation notable for a right intertrochanteric femur fracture. She was taken to the OR by Dr. Guardado and underwent ORIF which was uncomplicated. She reports generally doing well today except that she is having a lot of pain with movement and weight-bearing. She has had reduced urine output overnight and received a bolus of fluid. She did receive some oxygen for hypoxia without dyspnea overnight. During her hospital stay she had significant problems with pain and apprehension about moving. She had acute kidney injury likely secondary to volume depletion from hip fracture and blood loss anemia. Acute kidney injury improved with fluid resuscitation and transfusion of 1 unit of blood. Urine output and creatinine improving. Status at Discharge Functional status at discharge: uses cane/walker Time Spent with Patient Time attestation: Total time spent providing and/or coordinating discharge services: 50 minutes Exam Narrative: Exam Narrative: She is alert and in no distress. Breathing is unlabored. She has swelling without marked bruising over her right hip. No erythema. No significant drainage on the dressings. Distally she has no significant edema. Intact pulses and sensation distally. Const: Vital Signs, click to edit/add: Vital Signs - 24 hr 06/24/25 11:00 06/24/25 11:27 06/24/25 11:56 Temperature 37.0 C 37.0 C 37.0 C Pulse Rate 72 69 Pulse Rate [Right Pulse Oximeter] 72 Respiratory Rate 16 16 16 Blood Pressure 119/58 L 123/53 L Blood Pressure [Ri ght Arm] 119/53 L Pulse Oximetry 91 91 94 Oxygen Delivery Me thod Room Air Room Air Room Air 06/24/25 12:26 06/24/25 12:56 06/24/25 14:12 Temperature 36.4 C 36.4 C 36.7 C Pulse Rate 82 83 93 Pulse Rate [Right Pulse Oximeter] Respiratory Rate 16 16 16 Blood Pressure 126/57 L 142/67 H 137/65 Blood Pressure [Ri ght Arm] Pulse Oximetry 95 97 93 Oxygen Delivery Me thod Room Air Room Air Room Air 06/24/25 15:00 06/24/25 15:00 06/24/25 15:00 Temperature 36.7 C Pulse Rate Pulse Rate [Right Pulse Oximeter] 85 85 Respiratory Rate 16 16 16 Blood Pressure Blood Pressure [Ri ght Arm] 137/65 Pulse Oximetry 93 93 Oxygen Delivery Me thod Room Air Room Air 06/24/25 20:04 06/24/25 22:43 06/24/25 22:43 Temperature 36.5 C 36.7 C Pulse Rate Pulse Rate [Right Pulse Oximeter] 87 74 Respiratory Rate 16 18 18 Blood Pressure Blood Pressure [Ri ght Arm] 147/67 H 143/65 H Pulse Oximetry 93 95 95 Oxygen Delivery Me thod Room Air Room Air Room Air 06/24/25 23:00 06/25/25 03:19 Temperature 36.8 C Pulse Rate Pulse Rate [Right Pulse Oximeter] 74 72 Respiratory Rate 18 16 Blood Pressure Blood Pressure [Ri ght Arm] 124/63 Pulse Oximetry 95 Oxygen Delivery Me thod Room Air DS: Data Data Completed and Pending Labs on day of discharge: Labs from last 24 hours 06/25/25 06/25/25 06/24/25 06:30 05:46 16:12 WBC 7.33 RBC 2.71 L Hgb 8.4 L 8.8 L Hct 26.7 L MCV 99 MCH 31 MCHC 32 RDW Coeff of Aimee 13.7 Plt Count 186 Neut % (Auto) 73.5 H Lymph % (Auto) 16.0 L [place] % (Auto) 7.8 Eos % (Auto) 2.0 Baso % (Auto) 0.4 Neut # (Auto) 5.40 Lymph # (Auto) 1.20 [place] # (Auto) 0.60 Eos # (Auto) 0.15 Baso # (Auto) 0.03 Abs Immat Gran (auto) 0.02 Imm/Tot Granulo (auto) 0.3 Sodium 133 L Potassium 4.0 Chloride 103 Carbon Dioxide 22 Anion Gap 8 BUN 29 Creatinine 1.5 Estimated Creat Clear 24.97 Estimated GFR 35 Glucose 93 Calcium 8.1 L SARS-CoV-2 (PCR) Negative SARS-CoV-2 Blood Type Antibody Screen Crossmatch (AHG) 06/24/25 06:00 WBC RBC Hgb Hct MCV MCH MCHC RDW Coeff of Aimee Plt Count Neut % (Auto) Lymph % (Auto) [place] % (Auto) Eos % (Auto) Baso % (Auto) Neut # (Auto) Lymph # (Auto) [place] # (Auto) Eos # (Auto) Baso # (Auto) Abs Immat Gran (auto) Imm/Tot Granulo (auto) Sodium Potassium Chloride Carbon Dioxide Anion Gap BUN Creatinine Estimated Creat Clear Estimated GFR Glucose Calcium SARS-CoV-2 (PCR) Blood Type O Positive Antibody Screen NEGATIVE Crossmatch (AHG) See Detail Imaging Hip x-ray: Radiologist's impression: INDICATION: Posttraumatic pain. COMPARISON: None available. TECHNIQUE: AP pelvis and two views right hip. FINDINGS/IMPRESSION: Comminuted right intertrochanteric hip fracture. Chest x-ray: Radiologist's impression: Indication: Fall. Technique: Frontal chest radiograph. Comparison: None. Findings: Lungs are clear. No consolidation, effusion or pneumothorax. Cardiomediastinal silhouette is within normal limits. No significant osseous or soft tissue findings. Impression: 1. No acute cardiopulmonary process. Discharge Plan Discharge Disposition: [facility] Date of Admission: 06/21/25 18:13 Attending Provider on Discharge: Diego Blood Primary Care Provider: Deb Harris Anticipated Discharge Date/Time: 06/25/25 08:19 Discharge Medications: New alendronate [Fosamax] 70 mg tablet 70 mg PO QWEEK Qty: 14 0RF calcium carbonate-vitamin D3 [Calcium 500 + D] 500 mg-10 mcg (400 unit) tablet 1 tab PO BID Qty: 60 0RF sennosides [Senna Lax] 8.6 mg Tablet 17.2 mg PO BID PRN (Reason: constipation) Qty: 100 0RF oxycodone 5 mg Tablet 2.5 - 5 mg PO Q4-6H MDD 6 tabs per day PRN (Reason: Pain) Qty: 42 0RF Rx Instructions: Minimize. Discontinue as soon as possible Xarelto 10 mg tablet 10 mg PO DAILY Qty: 32 0RF Rx Instructions: for 32 days celecoxib 200 mg Capsule 200 mg PO DAILY Qty: 10 0RF Continued cyanocobalamin (vitamin B-12) [Dodex] 1,000 mcg/mL solution 1,000 mcg IM Q28D propranolol 160 mg capsule,extended release 24 hr 160 mg PO BID acetaminophen 650 mg Tablet Extended Release 1,300 mg PO Q8H Qty: 90 0RF primidone 50 mg tablet 100 mg PO TID omeprazole 40 mg capsule,delayed release(DR/EC) 40 mg PO BID glimepiride 1 mg tablet 1 mg PO DAILY metformin 500 mg tablet extended release 24 hr 1,000 mg PO BID rosuvastatin 40 mg tablet 40 mg PO HS nitroglycerin 0.4 mg tablet, sublingual 0.4 mg sublingual Q5M PRN ezetimibe 10 mg tablet 10 mg PO DAILY Discontinued propranolol 10 mg tablet 10 - 20 mg PO PRN alprazolam 0.25 mg tablet 0.25 mg PO BID PRN benazepril 40 mg tablet 40 mg PO DAILY amlodipine 5 mg tablet 5 mg PO DAILY propranolol 80 mg capsule,extended release 24 hr 80 mg PO DAILY PRN Discharge Orders: Discharge Order (Routine); Ordered 06/25/25 Ordered By: Diego Blood Consulting provider completed their portion of the discharge: Yes Additional Instructions: Please make appt with Dr Guardado in 4 weeks. phone: [phone], or return sooner if needed. Activity Level: Up with assist and Use Walker Activity Detail: Weightbear as tolerated left lower extremity. Remove dressings in 2 weeks. Change dressings if needed. Dressings are waterproof. May shower. Physical therapy and occupational therapy at [facility]. Ice and elevate operative extremity without restriction. Swelling and bruising will worsen within the first week. When swelling occurs, elevate the extremity above heart level several times a day and gently massage/pull soft tissue swelling toward hip. This allows gravity to assist in eliminating the swelling/edema. Wear compression stockings/anna bandages as needed for swelling. Ambulate frequently throughout the day. If you drive, Do not drive while taking narcotic pain medication. Do not drink alcohol while taking narcotic pain medication. May drive when safe to do so and have full function of the extremities, this may take 6 weeks or more. Notify Orthopedics with any questions or concerns. (phone: [phone]) Discharge Diet: Heart Healthy (2 gm sodium, low fat) Follow Up Appointments: Deb Harris PA-C [Primary Care Provider, [facility]] Forms: [facility] Info Instructions Admit to: SNF Discharge Potential: Good Code Status: Witnessed Arrest Only TEDs: Bilateral Knee Rehab Potential: Good Therapy: Physical Therapy and Occupational Therapy Therapy Orders: Evaluate and Treat Therapy Orders Additional Information: WBAT right lower extremity Urinary Catheter: No Glucose Checks: daily in AM and as needed for symptoms Lab Orders: CBC and Basic metabolic panel in 4 days
--- NOTE | 2025-06-25 13:10 | PC.NURSE ---
Discharge: Patient pleasant and cooperative, A&O. VSS, afebrile. SpO2 maintained above 90% on RA. Dressings to right hip C/D/I. Pt reports pain in her right hip, managed with PRN medication, see MAR. IV removed with tip intact. D/C to 3 links.
== END 2025-06-25 10:05 | DRG 481 ==
LOC: ED 14:13 → SS 14:28 → MEDSURG 19:24
PROVIDERS: Orthopaedic Surgery Sports Medicine; Student in an Organized Health Care Education/Training Program; Admitting Provider Family Medicine; Emergency Provider Family Medicine; PCP Physician Assistant Medical; Visit Provider Family Medicine
PROC: (CPT 27245; principal; 2025-06-21 14:45)
DX: S72.144A Nondisplaced intertrochanteric fracture of right femur, initial encounter for closed fracture (principal); D62 Acute posthemorrhagic anemia; I50.32 Chronic diastolic (congestive) heart failure; N17.9 Acute kidney failure, unspecified; I11.0 Hypertensive heart disease with heart failure; R09.02 Hypoxemia; G89.18 Other acute postprocedural pain; E78.5 Hyperlipidemia, unspecified; E11.9 Type 2 diabetes mellitus without complications; F43.22 Adjustment disorder with anxiety; G25.2 Other specified forms of tremor; M81.0 Age-related osteoporosis without current pathological fracture; Z87.891 Personal history of nicotine dependence; Z96.651 Presence of right artificial knee joint; Z79.899 Other long term (current) drug therapy; W19.XXXA Unspecified fall, initial encounter
CPT/HCPCS: 01210; 36415; 36430; 51798; 64450; 70450; 71045; 72125; 73501; 73502; 76000; 76770; 76942; 80048; 80053; 80306; 81001; 82077; 82550; 82803; 82962; 83605; 83880; 84484; 85018; 85025; 86850; 86900; 86901; 86922; 87086; 87631; 87635; 93005; 94761; 97110; 97116; 97162; 97165; 97530; 97535; 99100; 99140; 99285; A9270; C1713; J0665; J0690; J1171; J1938; J2250; J2371; J2405; J2704; J2795; J3010; J3490; J7030; J7120; P9016

== ENCOUNTER 2025-06-25 09:50 | Outpatient (CLI) | payer MEDICARE, BC, SELFPAY | END 2025-06-25 09:51 | disposition home or self-care (01) | LOC: AMB 06-28 18:45 | PROVIDERS: PCP Physician Assistant Medical; Visit Provider Family Medicine | DX: S72.141A Displaced intertrochanteric fracture of right femur, initial encounter for closed fracture (principal); Z98.890 Other specified postprocedural states | CPT/HCPCS: A0425; A0428 ==

== ENCOUNTER 2025-06-29 22:21 | Outpatient (CLI) | payer MEDICARE, BC, SELFPAY | END 2025-06-29 22:22 | disposition home or self-care (01) | LOC: AMB 07-01 18:32 | PROVIDERS: PCP Physician Assistant Medical; Visit Provider Family Medicine | DX: R25.8 Other abnormal involuntary movements (principal) | CPT/HCPCS: A0425; A0429 ==

== ENCOUNTER 2025-06-29 22:43 | Emergency (ER) | payer MEDICARE, BC, SELFPAY ==
--- OUTSIDE RECORDS SUMMARY | 2025-06-29 22:45 | XMS_ITS | Clinical Summary ---
Author Organization [facility] [facility] Address [address] [place] [address] Care Team Providers Care Compliance Project Manager Name Role Phone Deb Harris Primary Care Provider Soila Lozada MD Unavailable [phone] Allergies Active AllergyReactionsCriticalityNoted DateCommentsSulfa (Sulfonamide Antibiotics)Rash06/27/2008 [...] actuation) nasal solution (FLONASE) Indications:Post-nasal drainageInhale 1 Stambaugh in both nostrils once daily. 48 g [...] 1,000 mcg injection (VITAMIN B12) Indications:Vitamin B12 qecgxypwdx3321 mcgIMQ 4 WEEKS (28 DAYS)03/24/2020Active Active Problems ProblemNoted DateDiagnosed DateType 2 diabetes mellitus with chronic kidney disease, without long-term current use of insulin, unspecified CKD stage 08/25/2024Stage 3a chronic kidney wbonkwm0708/25/2024Morbid (severe) obesity due to excess pszcbshy16/21/2024Depression, major, single episode, moderate 08/03/2021Melanoma in situ of back08/18/2015HTN (hypertension)05/25/2014 Zmigfetipfdwup01/17/2014ftercare following joint ucsmiscgaru98/24/2014S/P total knee uzpnmameowza00/24/7117Mqyodf93/24/2014DVT wjfykixhzub57/24/2014Edema 03/01/20145040Vdzcdyb49/24/6476Aerygwazojlj59/24/2014Dysphagia, unspecified(787.20) 10/07/2013 Overview (10/07/2013): EGD 09/2013 normal, may have esophageal dysmotility Essential bfflwm5506/17/2013Lumbar disc herniation with oaxunfucawxak44/11/2013 Overview (03/19/2013): January 2013: Epidural steroid injection by Dr. Salvador for right L4 impingement. ACP (advance care planning)11/03/2012 Overview (11/03/2012): Patient has identified Health Care Agent(s): Yes Add Health Care Agents: Yes Health Care Agent(s): Primary Health Care Agent: Jil Yu Relationship: sister Secondary Health Care Agent: Jesse Peters Relationship: son [phone] cell Patient has Advance Care Plan Documents [...] etc. as needed for immediate comfort. Breast inkurt4707/18/2008Diabetes nomjjraw48/10/2009bscess of hsvhei4207/18/2008 Chest painAbnormal cardiovascular stress test Encounters DateTypeDepartmentCare RrlhCzilsotjsqa18/22/2025Lab Requisition [facility] [phone] Tom Weston MD 06/23/2025Orders Only [facility] Scanner 1 scan: (1-Ord) [facility], US RENAL BLADDER, Orders Only [facility] Scanner 1 scan: (1-Ord) [facility], XR CHEST 1V, Orders Only [facility] Scanner 1 scan: (1-Ord) [facility], CERVICAL SPINE WO CONTRAST, 06/21/2025 06/21/2025Orders Only [facility] Scanner 1 scan: (1-Ord) [facility], HEAD/BRAIN WO CON, Refill [address] [address] Deb Harris PA Refill Request (Alprazolam)06/01/2025 10:45 AM CSTNurse/Clinic Staff Only [address] [address] Immunization/Lmvodhwwn66/24/7566Eejiio66/17/2025 10:30 AM CSTOffice Visit [address] [address] Deb Harris PA Follow Up (Was told to follow up)05/25/20257580Jqydqh38/11/2025 2:00 PM CSTProcedure Only [address] [address] Grayson Borges L Ac Fgjndkdhubl72/11/6501Lqreey78/03/2025Refill [address] [address] Deb aHrris PA Refill Request (Propranolol Er)05/07/2025 11:00 AM CDTNurse/Clinic Staff Only [address] [address] 05/07/2025Telephone [facility] [address] [place] [address] Honey Arias PA Prior Authorization (lidocaine 5 % topical patch DENIED)05/07/2025Travel 05/04/2025 3:45 PM CDTOffice Visit [facility] [address] [place] [address] Honey Arias PA Foot Problem (sharp shooting pain in arch of left foot, x3-4 days); Vaginal Problem (vaginal burning x1 month, vagisil helps, but only temporarily ) 05/04/20253708Xvlksi89/14/2025 11:30 AM CDTProcedure Only [facility] [address] [place] [address] Grayson Borges L Ac Lpssyioebok97/14/0681Brgxdw84/10/2025Telephone [facility] [address] [place] [address] Deb Harris PA 04/14/2025 1:20 PM CDTOffice Visit [facility] [address] [place] [address] Yolis Gonsales MD Derm Cxqzphb1304/13/2025 9:30 AM CDTOffice Visit [facility] [place] [address] [facility] [address] [place] [address] Karla Palmer CNS CV Heart Failure Est (CHF FU, CTA/LABS PRIOR, DX: SOB (shortness of breath) [R06.02], 2+ pitting edema [R60.9] /Pt states she gets fatigued and has trouble breathing sometimes.)04/13/20257265Hmxgyy85/06/2025Orders Only [facility] [address] [place] [address] Mickie Zarco MD <No scans attached>04/10/2025 2:[address] [facility] [address] [place] [address] Deb Harris PA Telehealth (UTI? / urgency, x dysuria x 3 days)04/09/2025 11:00 AM CDT Nurse/Clinic Staff Only [facility] [address] [place] [address] Immunization/Injection (B-12 INJECTION )04/09/20250292Dnmvdi08/01/2025Orders Only [facility] [address] [place] [address] Karla Palmer CNS <No scans attached>from Last 3 Months Immunizations ImmunizationAdministration DatesNext DueAMB Influenza, IIV3 (Age >=3 years)(Flu Clinic Only)04/29/2012COVID-19 vaccine (Moderna 100mcg/0.5mL) PF, MDV10/13/2021, 09/24/2020,08/27/2020Influenza A (H1N1), Txorvtfivcp24/18/2010Influenza A (H1N1), Inactivated (Age >=3 Years)07/26/2009Influenza Virus, Unspecified 04/08/2011,04/22/2010Influenza, High-dose Sgtbrdojbtj09/19/2024,05/11/2016, 04/15/2015,04/16/2014Influenza, High-dose Quadrivalent Lvnkjvguine95/17/2023, 04/18/2022,04/12/2021Influenza, IIV3 (Age 6-35 mos)05/02/2011,03/26/2009, 06/05/2007Influenza, IIV3 [...] = 0.6 oz pure alcohol)PHQ-2AnswerDate RecordedPHQ-2 TOTAL UURBN548Social Connections AnswerDate RecordedDo you often feel lonely or isolated from those around you?0 06/12/2024Financial Resource StrainAnswerDate RecordedDifficulty of Paying Living Fvkgdtng103/05/2024ifficulty of Paying Living ExpensesNot on file 06/12/2024Food InsecurityAnswerDate RecordedDo you worry your food will run out before you are able to buy more?Transportation NeedsAnswerDate RecordedDoes lack of transportation keep you from medical appointments?1 06/12/2024oes lack of transportation keep you from work, meetings or getting things that you need?Housing StabilityAnswerDate RecordedWhat is your housing situation today?112/05/2024UtilitiesAnswerDate RecordedDo you have trouble paying for utilities (for example, heat, electricity, water, phone)?1 4CommentsNoSex and Gender InformationValueDate RecordedSex Assigned at BirthNot on fileLegal ZcxOygqyk52/14/2013 5:25 AM CSTGender Identity Not on fileSexual OrientationNot on file Last Filed Vital Signs Vital SignReadingTime TakenCommentsBlood Tvxkzfhb613/7811 10:45 AM FIBER ANALYST Pnbbw511605/25/2025 10:45 AM ACWMgywgbmzmqk22.6 ??C (97.9 ??F)05/04/2025 3:48 PM CDTRespiratory Zxfi7220 12:01 PM CDTOxygen Inifclmkxk157%05/04/2025 3:48 PM CDTInhaled Oxygen Concentration--Cjmwuq11.2 kg (190 lb)05/25/2025 10:45 AM CRXRrvfsy379.6 cm (5' 4.02)04/13/2025 9:29 AM CDTBody Mass Index32.610 9:29 AM CDT Plan of Treatment DateTypeDepartmentCare Team (Latest Contact Info)Dhpzrbdmlvj42/05/2026 1:30 PM CSTOrders Only [facility] [address] [place] [address] Lab, Farm 07/16/2025 1:30 PM CSTProcedure Only [facility] [address] [place] [address] Grayson Borges L [address] [place] [address] 07/17/2025 10:30 AM CSTOffice Visit [facility] [address] [facility] [address] [place] [address] Karla Palmer, ANTONETTE [address] [facility] [address] [place] [address] 07/27/2025 10:45 AM CSTNurse/Clinic Staff Only [facility] [address] [place] [address] 08/10/2025 1:30 PM CSTProcedure Only [facility] [address] [place] [address] Grayson Borges L Ac [address] [place] [address] 09/11/2025 2:00 PM CSTProcedure Only [facility] [address] [place] [address] Grayson Borges L Ac [address] [facility] [address] 04/20/2026 2:20 PM CDTOffice Visit [facility] [address] [place] [address] Christine Yu PA [address] [place] [address] Health MaintenanceDue DateLast DoneCommentsZoster (shingles) series for age 50+ (2 of 3)Influenza Vaccine (#1)51, 04/20/2020, 03/25/2019, Additional history existsTetanus ocnyyrs4508/13/2025 08/13/2015, 02/28/2012, 03/28/2011 (Completed outside of [facility]), Additional history existsDepression screening for age 12+6008/26/2024, 08/25/2024, 08/25/2024, Additional history existsMedicare Wellness for age 65+08/26/2025 08/25/2024, 08/24/2023, 08/22/2022, Additional history existsCOVID-19 vaccine series (2024- season), 03/12/2024, 04/14/2023, Additional history existsBMI (ht and wt on same day) for age 18+04/13/2026 04/13/2025, 03/03/2025, 08/25/2024, Additional history existsPneumococcal series for age 50+Oabwhqrdw83/04/2018, 06/01/2015, 10/21/2004, Additional history existsDEXA/DXA scan for age 65+Zgqbjmsew28/10/2022, 08/27/2015, 03/28/2011 (Completed outside of [facility])RSV vaccine for adults or pregnancyCompleted 05/09/2023Hepatitis B series for 19+Aged OutNo longer eligible based on patient's age to complete this topic Procedures Procedure NamePriorityDate/TimeAssociated DiagnosisCommentsSCAN-ULTRASOUND QPXREF9706/23/2025 12:00 AM FIBER ANALYST SCAN-RADIOLOGY ATLMWS6206/21/2025 12:00 AM FIBER ANALYST SCAN-CT ALSOEXSGQJJKKJ82/14/2025 12:00 AM CSTSCAN-CT NGNWNVFWGFCURK00/14/2025 12:00 AM CSTHEMOGLOBIN A1C MONITORING (POCT)Ipacwms2605/25/2025 11:33 AM FIBER ANALYST Type 2 diabetes mellitus without complication, without long-term current use of insulin (HC) ACUPUNCTURE PLAN OF NUOZUgprkzi13/11/2025 1:55 PM FIBER ANALYST Other low back pain TRICHOMONAS, CHAI, AND BACTERIAL VAGINOSIS BY VWVItftwae67/27/2025 4:11 PM CDT Lower urinary tract symptoms (LUTS) URINE QGTBCVWCgusghs23/27/2025 4:05 PM CDT Lower urinary tract symptoms (LUTS) URINALYSIS GKPABIKXANDCufmfon83/27/2025 4:05 PM CDT Lower urinary tract symptoms (LUTS) URINALYSIS MACROSCOPIC - [facility] ONLY POC DIP (QUEST)Cyoiocr8505/04/2025 4:05 PM CDT Lower urinary tract symptoms (LUTS) ACUPUNCTURE PLAN OF WJQUHaksgcq36/14/2025 11:30 AM CDT Other low back pain URINE WFXHBNCCyvntsx31/03/2025 1:55 PM CDT Dysuria URINALYSIS DSBGCHUSCBFXhcvyzz46/03/2025 1:55 PM CDT Dysuria URINALYSIS [facility] ONLY POC DIP (QUEST)Oqedkmj5604/10/2025 1:55 PM CDT Dysuria XR DXA BONE DENSITY 2 SITES AXIAL AND 1 SITE ZJBLKDQLTDDkgzqbr62/10/2022 11:00 AM FIBER ANALYST Menopausal symptoms Unspecified menopausal and perimenopausal disorder from Last 3 Months or Most Recently Relevant to Health Maintenance Results * SCAN-ULTRASOUND REPORT (06/23/2025 12:00 AM FIBER ANALYST)Anatomical RegionLaterality ModalityOther Narrative Authorizing ProviderResult TypeResult StatusScannerOTHERFinal Result * SCAN-RADIOLOGY REPORT (06/21/2025 12:00 AM FIBER ANALYST)Anatomical RegionLaterality ModalityOther Narrative Authorizing ProviderResult TypeResult StatusScannerOTHERFinal Result * SCAN-CT INTERPRETATION (06/21/2025 12:00 AM FIBER ANALYST) Only the most recent of2 resultswithin the time period is included. Anatomical RegionLateralityModalityOther Narrative Authorizing ProviderResult TypeResult StatusScannerOTHERFinal Result * (ABNORMAL) HEMOGLOBIN A1C MONITORING (POCT) (05/25/2025 11:33 AM FIBER ANALYST)Component ValueRef RangeTest MethodAnalysis TimePerformed AtPathologist SignaturePOC HEMOGLOBIN A1C6.2(H)<6.0 % OF TOTAL HGB107/25/2024 1:17 PM CSTCL[facility]OSPITALComment: Any point of care results exhibiting inconsistency with the patient's clinical status should be repeated using a different testing method. Specimen (Source)Anatomical Location / LateralityCollection Method / Volume Collection TimeReceived TimeBloodBLOOD SPECIMEN / UnknownQuest Collect / Unknown 05/25/2025 11:33 AM CST05/25/2025 11:33 AM FIBER ANALYST Narrative Authorizing ProviderResult TypeResult StatusBridget Shefali Dobbsekaterina PACHEMISTRY Final ResultPerforming OrganizationAddressCity/State/ZIP CodePhone Number [facility] [address] [place] [address], [place] [phone] [facility] [address] [place] [address], [place] [phone] * TRICHOMONAS, CHAI, AND BACTERIAL VAGINOSIS BY HINA (05/04/2025 4:11 PM CDT) ComponentValueRef RangeTest MethodAnalysis TimePerformed AtPathologist SignatureCANDIDA SPECIESNegativeNegative, NOT Rsbdfwue15/28/2025 1:17 PM CDT [facility]-CENTRAL LABORATORYCANDIDA GLABRATANegativeNegative 05/05/2025 1:17 PM [facility]-CENTRAL LABORATORYTRICHOMONAS VVANegativeNegative, NOT Kvkqxbqw74/28/2025 1:17 PM [facility]-CENTRAL LABORATORYBACTERIAL VAGINOSISNegativeNegative, NOT Detected 05/05/2025 1:17 PM [facility]-CENTRAL LABORATORYSpecimen (Source)Anatomical Location / LateralityCollection Method / VolumeCollection TimeReceived TimeOtherVAGINAL SWAB / UnknownNon-Blood / Ujjrbda0605/04/2025 4:11 PM CDT1 4:12 PM CDT Narrative Authorizing ProviderResult TypeResult StatusAbby Sheela DAMIAN MICROBIOLOGYFinal ResultPerforming OrganizationAddressCity/State/ZIP CodePhone Number [facility] [address] [place] [address], [place] * (ABNORMAL) URINALYSIS MACROSCOPIC - [facility] ONLY POC DIP (QUEST) (05/04/2025 4:05 PM CDT) Only the most recent of2 resultswithin the time period is included. ComponentValueRef RangeTest MethodAnalysis TimePerformed AtPathologist Signature SPECIFIC GRAVITY> OR = 1.0301.001 - 1.1773405/04/2025 4:25 PM [facility]ENTERComment: Specific Pilot values resulted are outside the analytical measurement range of this device. Recommend repeat/additional testing as clinically indicated. PROTEIN2+(A)UWOLSXWK20/27/2025 4:25 PM [facility] MEDICAL CENTERGLUCOSE WPXYSWOYSANONZTJ04/27/2025 4:25 PM [facility]ICAL CENTERKETONES TRACE(A)RWYYOLQZ16/27/2025 4:25 PM [facility] CENTERBILIRUBIN1+ (A)INHKJILP32/27/2025 4:25 PM [facility] CLINICComment: A false positive may be caused by the drug Lodine. For any presumptive positive bilirubin, consider confirmation by serum bilirubin if clinically indicated. OCCULT ACFQCPZXKPDXPWTFKVIMS06/27/2025 4:25 PM [facility] CENTERNITRITENEGATIVENEGATIVE05/04/2025 4:25 PM [facility] CENTERPH5.55.0 - 8.010 4:25 PM [facility] LEUKOCYTE EHWJMWVDYQZXYEYPTDLKHOOI58/27/2025 4:25 PM pecimen (Source)Anatomical Location / LateralityCollection Method / VolumeCollection TimeReceived TimeUrineURINE SPECIMEN / UnknownNon-Blood / Krganzl8805/04/2025 4:05 PM CDT1 4:18 PM CDT Narrative Authorizing ProviderResult TypeResult StatusAbby Sheela Arias PAURINEFinal ResultPerforming OrganizationAddressCity/State/ZIP CodePhone Number [facility] [address] [place] [address], [place] [phone] [facility] [address] [place] [address], [place] [phone] * URINALYSIS MICROSCOPIC (05/04/2025 4:05 PM CDT) Only the most recent of2 resultswithin the time period is included. ComponentValueRef RangeTest MethodAnalysis TimePerformed AtPathologist Signature RBC0-20-2, None Seen /HPF05/04/2025 11:43 PM [facility]-CENTRAL UUBUOPYTQOWJR1-19-0, 3-5, None Seen /HPF05/04/2025 11:43 PM [facility]TR[facility] LABORATORYBACTERIANone SeenNone Seen, Rare, Few Bacteria/HPF 05/04/2025 11:43 PM [facility]TRAL LABORATORYEPITHELIAL CELLSFewNone Seen, Few Epi/HPF05/04/2025 11:43 PM [facility] CENTRAL LABORATORYHYALINE CASTS0-20-2, 3-5 /LP05/04/2025 11:43 PM [facility]ENTRAL LABORATORYSpecimen (Source)Anatomical Location / LateralityCollection Method / VolumeCollection TimeReceived TimeUrineURINE SPECIMEN / UnknownNon-Blood / Ijdqecp8605/04/2025 4:05 PM CDT1 4:18 PM CDT Narrative Authorizing ProviderResult TypeResult StatusAbby Sheela DAMIANURINEFinal ResultPerforming OrganizationAddressCity/State/ZIP CodePhone Number [facility] [address] [place] [address], * URINE CULTURE (05/04/2025 4:05 PM CDT) Only the most recent of2 resultswithin the time period is included. ComponentValueRef RangeTest MethodAnalysis TimePerformed AtPathologist Signature CULTURE<10,000 CFU/mL multiple mykmkdylu80/29/2025 8:41 AM [facility] LABORATORYSpecimen (Source)Anatomical Location / Laterality Collection Method / VolumeCollection TimeReceived TimeUrineURINE SPECIMEN / UnknownNon-Blood / Fgvicvb8105/04/2025 4:05 PM CDT1 4:18 PM CDT Narrative Authorizing ProviderResult TypeResult StatusAbby Sheela DAMIAN MICROBIOLOGYFinal ResultPerforming OrganizationAddressty/State/ZIP CodePhone Number [facility] [address] [place] [address], * XR DXA BONE DENSITY 2 SITES AXIAL AND 1 SITE PERIPHERAL (08/18/2021 11:00 AM FIBER ANALYST)Anatomical RegionLateralityModalityLUMBAR SPINEOtherSpecimen (Source) Anatomical Location / LateralityCollection Method / VolumeCollection Time Received Time Impressions 08/22/2021 7:44 AM FIBER ANALYST Normal bone density. RECOMMENDATIONS: The National Osteoporosis [...] Leticia Girard PA-C Narrative 08/22/2021 7:44 AM FIBER ANALYST For Patients: Results are automatically released to your [facility] ([employer]) account once available, in compliance with federal regulations. This means that you may see your results before your provider has had a chance to review them. Please allow 2-3 business days for your provider to comment on the results. XR DXA Bone Mineral Density (BMD) EXAM LOCATION: [address] [address] PATIENT NAME: Joan Peters DATE OF : [...] two scanners are made by the same combine mechanic. PROCEDURE: Dual-energy x-ray absorptiometry performed with routine [...] Relevant to Health Maintenance Insurance * Guarantor: [facility]Account TypeRelation to PatientDate of BirthPhoneBilling RnzwpyiNfrkyhbrGzoxj41/01/2006 Atten: Financial Services [address] [place] [address] * Guarantor: Joan Peters RAccount TypeRelation to PatientDate of BirthPhone Billing AddressMotor GyawnjgGunl97/18/1941 [address] [place] [address] Advance Directives TypeDate RecordedPatient RepresentativeExplanationHealthcare Directive11/19/2012 12:33 PMHEALTHCARE DIRECTIVE 04/30/12Healthcare Wfzthwiqj07/23/2012 12:00 AM 04/30/12/reviewed 03/16/16 * Full Code (Latest Code Status on File) Date ActivatedDate InactivatedComments03/23/2017 9:10 AM03/23/2017 4:56 PM * Full Code Date ActivatedDate InactivatedComments08/18/2015 1:42 PM2 5:35 PM Care Teams Team MemberRelationshipSpecialtyStart DateEnd Date Deb Harris PA [address] [place] [address] [facility]CP - [facility]icsly Vettbkaa64/10/14 Soila Lozada MD [facility] [address] [facility] [address] [place] [address] Stddaxgygbr78/4/18
--- OUTSIDE RECORDS SUMMARY | 2025-06-29 22:45 | XMS_ITS | Clinical Summary ---
Author Organization [facility] [place] [place] Address [address] [place] [address] Phone Care Team Providers Care Cooker Process Cheese Name Role Phone Deb Harris PA-C Primary Care Provider [phone] Allergies Active AllergyReactionsCriticalityNoted DateCommentsSulfa AntibioticsRashLow 04/06/2011 Medications * This document contains information received from the source organization and may not represent a complete record from that organization. MedicationSigDispense QuantityRefillsLast FilledStart DateEnd DateStatus nystatin (MYCOSTATIN) powder Fill at patient requestApply topically to affected area(s) 2 times daily if needed. Fill at eruxykhoitooix81/09/2024ctive omeprazole (PriLOSEC) [address] capsule TAKE 1 CAPSULE BY MOUTH TWICE DAILY Strength: 40 mg08/24/2023ctive propranolol LA (INDERAL LA) 160 MG 24 hr capsule Take 160 mg by mouth in the morning and 160 mg in the evening.08/24/2023ctive metFORMIN XR (GLUCOPHAGE-XR) 500 MG 24 hr tablet Take 2,000 mg by mouth 1 (one) time each day with rdtcfy7408/24/2023ctive ALPRAZolam (XANAX) 0.25 MG tablet Take 0.25 [...] CAPSULE BY MOUTH PRIOR TO SOCIAL SETTING PKJXHO8608/25/2023ctive rosuvastatin (CRESTOR) 40 MG tablet Take 40 mg by mouth at bed time08/09/2023ctive cholecalciferol (VITAMIN D-3) 25 MCG (1000 UT) capsule Take 1,000 Units by mouth 1 (one) time each dayActive Active Problems ProblemNoted DateDiagnosed DateStage 3a chronic kidney hsnubxw2809/24/2023 Assessment & Plan (12/18/2023 11:35 AM CDT): [...] 08/24/2023. Blood pressure today at her visit pcv572/88. Reasonable to continue current cares as prescribed. Especially now that we are in early in our evaluation for the kidney issue. Ideally, would recommend a systolic blood pressure to be anywhere between 140-150 in this patient of advanced age higher than average risk for falls, etc. Type 2 diabetes mellitus with diabetic chronic kidney ydookmg8509/24/2023 Overview (09/25/2023): Diagnosed and patient's fourth or [...] agent is necessary. Personal history of breast ibgzeo1109/24/2023Morbid (severe) obesity due to excess zavwlmgv10/18/2024 Assessment & Plan (12/17/2023 5:15 PM CDT): Stable. Ongoing attempts at physical fitness to bring forth weight loss remain malik in the management of high blood pressure, minimizing cardiovascular risk factors, and also, preventing progression of CKD. Dnuqpu1003/01/2014 Assessment & Plan (09/25/2023 2:09 PM CDT): I note a slow drop in hemoglobin. Most recent level was 11.5 in February 2023. Osteoarthritis of knee02/24/2014 Overview (09/25/2023): Status post bilateral total knee replacement Resolved Problems ProblemNoted DateDiagnosed DateResolved DateHypertensive jeoziwqw48/17/2014 4Diabetes Immunizations ImmunizationAdministration DatesNext DueInfluenza Split High Dose Preservative Free IM04/24/2023,04/18/2022,04/12/2021SV NCXTGPDWPMX46/01/2023 Family History Medical HistoryRelationCommentsNo Known ProblemsFatherNo Known [...] InformationValueDate RecordedSex Assigned at BirthNot on fileLegal RtvRvprvj39/23/2024 1:29 PM ESTGender Identity Not on fileSexual OrientationNot on file Last Filed Vital Signs Vital SignReadingTime TakenCommentsBlood Apgdzqkz912/8906 11:14 AM CDT Ndfss850812/18/2023 11:14 AM CDTTemperature--Respiratory Rate--Oxygen Saturation 97%09/25/2023 1:04 PM CDTInhaled Oxygen Concentration--Hxbiup26.7 kg (200 lb) 12/18/2023 11:14 AM JWDRpqdtw463.1 cm (5' 5)12/18/2023 11:14 AM CDTBody Mass Index33.28012/18/2023 11:14 AM CDT Plan of Treatment Health MaintenanceDue DateLast DoneCommentsPneumococcal Vaccine: 50+ Years (1 of 2 - PCV)2Diabetes: Ophthalmology Exam08/31/2023iabetes: Pedal Pulse Geuvxwn5908/31/2023iabetes: Sensory Foot Exam08/31/2023iabetes: Visual Foot Exam 08/31/2023iabetes: Hemoglobin A1C502/11/2024, 08/24/2023Influenza Vaccine (#1)510/, 04/18/2022, 04/12/2021Hepatitis B VaccineAged OutNo longer eligible based on patient's age to complete this topic Insurance Care Teams Team MemberRelationshipSpecialtyStart DateEnd Date Deb Harris PA-C [address] [place] [address] PCP - GeneralPhysician Assistant09/19/23
--- OUTSIDE RECORDS SUMMARY | 2025-06-29 22:45 | XMS_ITS | Clinical Summary ---
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 Role Phone Dolores Briceno ANA [facility] Pro vider Allergies Active AllergyReactionsCriticalityNoted [...] Active fluticasone (FLONASE) 50 MCG/ACT nasal spray [place] 1 spray into both nostrils daily as [...] Active Problems ProblemNoted DateDiagnosed DateS/P total knee xfwgrryyzohi57/05/2019Degenerative arthritis of knee02/24/2014 Social History Tobacco UseTypesPacks/DayYears UsedDateSmoking Tobacco: NeverSmokeless Tobacco: NeverAlcohol UseStandard Drinks/WeekCommentsYes0 (1 standard drink = 0.6 oz pure alcohol)2 drinks weeklyCommentsNoSex and Gender InformationValueDate RecordedSex Assigned at BirthNot on fileLegal 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 Gender IdentityNot on fileSexual OrientationNot on file Last Filed Vital Signs Vital SignReadingTime TakenCommentsBlood Pkbvoorl955/46012/14/2018 1:00 PM CDT Hvxae555312/13/2018 2:20 AM ZVDWqjyggliulv09.3 ??C (99.2 ??F)12/14/2018 1:00 PM CDTRespiratory Vofz911112/14/2018 7:17 AM CDTOxygen Lufrlolybv22%12/14/2018 1:00 PM CDTInhaled Oxygen Concentration--Yjuubv39 kg (194 lb)12/11/2018 5:40 AM CDT Xkmvaf406.1 cm (5' 5)12/11/2018 5:40 AM CDTBody Mass Index32.28012/11/2018 5:40 AM CDT Plan of Treatment Not on file Medical Devices ImplantedTypeAreaManufacturerDevice IdentifierShelf Expiration DateModel / Serial / LotBone Cement Simplex W/Tobramycin [id number] Implanted:Qty: 1 on 12[facility]11/2018 [facility] BoneRight: KneeSTRYKER BQXKFRJAOVI32/30/2020 [id number] / / [id number] Comp Tka Ibalance Fem Ps Enrrique Sz 6 Rt Ar-516-6r Implanted:Qty: 1 on 12/11/2018 by Emerson Hardin MD at [facility] Joint Component/InsertRight: FjpuFKFCFHH66/31/2023 AR-516-6R / / [id number] Comp Tka Ibalance Mod Tibial Tray Sz 5 Ar-513-T5 Implanted:Qty: 1 on 12/11/2018 by Emerson Hardin MD at [facility] Joint Component/InsertRight: WvluSHAPYGZ52/31/2023 AR-513-T5 / / [id number] Comp Ibalance Patella Dome 30x8mm Ar-504-Psb8 Implanted:Qty: 1 on 12/11/2018 by Emerson Hardin MD at [facility] Joint Component/InsertRight: IxgfSJSWNYH89/31/2023 AR-504-PSB8 / / [id number] Comp Tka Ibalance Bearing Ps Sz 5 10mm Ar-513-Bf10 Implanted:Qty: 1 on 12/11/2018 by Emerson Hardin MD at [facility] Joint Component/InsertRight: DbnkBNNYNSQ95/30/2019 AR-513-BF10 / / [id number] Tibial Component Triathlon Implanted:Qty: 1 on 02/24/2014 [facility]: Eagle[employer]11/05/[id number] / / [id number] Comp Patella Strk Triathln Tri Bd W/Pa 32mm [id number] Implanted:Qty: 1 on 02/24/2014 [facility]: KneeSAmplify.LA01/05/[id number] / / [id number] Comp Fem Strk Triathln Cr Bd W/Pa Lt 4 [id number] Implanted:Qty: 1 on 02/24/2014 [facility]: KneeSTRYXanEdu11/05/[id number]-317 / / [id number] Insert Tibial Howm Tri 4x09mm [id number]-[id number] Implanted:Qty: 1 on 02/24/2014 [facility]: Allison JKBLFPVQFFI40/31/[id number]-415 / / [id number] Insurance * Guarantor: Joan Peters TypeRelation to PatientDate of BirthPhone Billing AddressPersonal/PkishwZvrw56/18/1941 None (Work) [address] [place] [address] Advance Directives For more information, please contact: [phone] TypeDate RecordedPatient RepresentativeExplanationAdvance Directives and Living Will03/02/2014HEALTH CARE DIRECTIVE 05-02-2012 * Full Code (Latest Code Status on File) Date ActivatedDate InactivatedComments12/11/2018 11:27 AM12/14/2018 3:44 PMQuestion AnswerCommentsCode status determined by:* Unable to determine; FULL CODE until documents or legal decision maker available * Full Code Date ActivatedDate InactivatedComments02/24/2014 5:47 PM02/27/2014 4:51 PM Care Teams Team MemberRelationshipSpecialtyStart DateEnd Date Dolores Briceno APRN [facility] [place] [id number] [place] [address] PCP - GeneralNgrady Practitioner11/20/18
[2025-06-29 23:05] VITALS: BP 168/72; PULSE 91; RESP 20; TEMP 36.2; O2SAT 95
--- NOTE | 2025-06-29 23:08 | CRLHL7_ITS ---
For Patients: As a result of the Century Cures Act, medical imaging exams and procedure reports are released immediately into your electronic medical record. You may view this report before your referring provider. If you have questions, please contact your health care provider. INDICATION: Tremors and difficulty with speech. TECHNIQUE: CT head without contrast. COMPARISON: 06/21/2025. FINDINGS: CSF spaces: Proportionate prominence of the ventricles and sulci, reflecting mild generalized cerebral volume loss. Brain parenchyma: The hutton-white differentiation is maintained. Patchy white matter low attenuation changes, nonspecific but likely reflecting chronic small vessel ischemic disease. No sign of mass, hemorrhage, or midline shift. Atherosclerotic calcifications of the cavernous carotids and carotid siphons. Skull base and calvarium: The visualized paranasal sinuses and mastoid air cells demonstrate no acute or significant findings. The visualized orbits are grossly unremarkable. Calvarium is intact. IMPRESSION: No acute intracranial abnormality. Please note that all CT scans at this facility use dose modulation, iterative reconstruction, and/or weight-based dosing when appropriate to reduce radiation dose to as low as reasonably achievable. Dictated by Benjie Markham MD @ 06/30/2025 12:34:19 AM (Electronically Signed)
--- NOTE | 2025-06-29 23:08 | ED.GENADULT ---
HPI - General Adult General Date Seen: 06/29/25 Chief complaint: Neuro Symptoms/Altered Deficit Stated complaint: uncontrollable shaking Time Seen by Provider: 06/29/25 23:08 Source: patient, RN notes reviewed and old records reviewed Mode of arrival: ambulatory Limitations: no limitations History of Present Illness HPI narrative: Joan is a very pleasant 84-year-old female with history of recent right hip fracture, acute kidney injury, hyperglycemia who comes to the emergency room from [address] [place] [address] after having experience tremors in her arms and difficulty with speech with stuttering. This started after dinner tonight and has been occasional and episodic. Patient notes that she does have an essential tremor at baseline. However, her son states that actually been better since she has been hospitalized. Today was a big day as is the 1st day she was up and walking with PT and OT and she did very well. She denies a headache or visual changes. Denies nausea or vomiting. The tremors that she experience were shaking of both of her arms and stuttering of speech. She does show me how her arms were flapping about. No lower extremity leg symptoms. No chest pain or shortness of breath. Related Data Home Medications ?Medication ?Instructions ?Recorded ?Confirmed glimepiride 1 mg tablet 1 mg PO DAILY 04/16/23 06/29/25 metformin 500 mg tablet,extended 1,000 mg PO BID 04/16/23 06/29/25 release 24 hr omeprazole 40 mg capsule,delayed 40 mg PO BID 04/16/23 06/29/25 release primidone 50 mg tablet 100 mg PO TID 04/16/23 06/29/25 rosuvastatin 40 mg tablet 40 mg PO HS 04/16/23 06/29/25 nitroglycerin 0.4 mg sublingual 0.4 mg sublingual Q5M PRN 06/08/23 06/29/25 tablet cyanocobalamin (vitamin B-12) 1,000 mcg IM Q28D 06/16/24 06/29/25 1,000 mcg/mL injection solution (Dodex) propranolol 160 mg capsule,24 160 mg PO BID 06/16/24 06/29/25 hr,extended release ezetimibe 10 mg tablet 10 mg PO DAILY 06/21/25 06/29/25 Previous Rx's ?Medication ?Instructions ?Recorded acetaminophen 650 mg 1,300 mg (2 x 650 mg) PO Q8H #90 06/17/24 tablet,extended release tabs alendronate 70 mg tablet (Fosamax) 70 mg PO QWEEK #14 tabs 06/22/25 calcium 500 mg (as 1 tab PO BID #60 tabs 06/22/25 carbonate)-vitamin D3 10 mcg (400 unit) tablet (Calcium 500 + D) oxycodone 5 mg tablet 2.5 - 5 mg (0.5 - 1 x 5 mg) PO 06/23/25 Q4-6H PRN Pain #42 tabs rivaroxaban 10 mg tablet (Xarelto) 10 mg PO DAILY DVT Prophylaxis #32 06/23/25 tabs sennosides 8.6 mg tablet (Senna 17.2 mg (2 x 8.6 mg) PO BID PRN 06/23/25 Lax) constipation #100 tabs celecoxib 200 mg capsule 200 mg PO DAILY #10 caps 06/25/25 Allergies Allergy/AdvReac Type Severity Reaction Status Date / Time Sulfa (Sulfonamide Allergy Verified 06/29/25 23:10 Antibiotics) Review of Systems Status of ROS: Reports: 10 or more systems reviewed and unremarkable except as noted in History and below Const: Denies: fever, chills or malaise Eyes: Denies: change in vision or blurry vision ENMT: Denies: throat pain, neck pain or nasal congestion Cardio: Denies: chest pain, palpitations or shortness of breath with exertion Resp: Denies: shortness of breath or cough GI: Denies: abdominal pain or vomiting : Denies: painful urination Musculo: Denies: back pain, neck pain or extremity pain Integ/Breast: Denies: rash Neuro: Denies: headache Psych: Reports: anxiety [facility] Medical History Fall ?W19.XXXA - Unspecified fall, initial encounter (ICD-10) Diabetes ?E11.9 - Type 2 diabetes mellitus without complications (ICD-10) Hypoxia ?R09.02 - Hypoxemia (ICD-10) Osteoporosis ?M81.0 - Age-related osteoporosis without current pathological fracture (ICD-10) Heart failure with preserved ejection fraction ?I50.30 - Unspecified diastolic (congestive) heart failure (ICD-10) History of melanoma ?Z85.820 - Personal history of malignant melanoma of skin (ICD-10) Lumbar radiculopathy ?M54.16 - Radiculopathy, lumbar region (ICD-10) DDD (degenerative disc disease), lumbar ?M51.369 - Other intervertebral disc degeneration, lumbar region without mention of lumbar back pain or lower extremity pain (ICD-10) HTN (hypertension) ?I10 - Essential (primary) hypertension (ICD-10) Adjustment disorder with anxiety ?F43.22 - Adjustment disorder with anxiety (ICD-10) HLD (hyperlipidemia) ?E78.5 - Hyperlipidemia, unspecified (ICD-10) Essential tremor ?G25.0 - Essential tremor (ICD-10) History of breast cancer ?Z85.3 - Personal history of malignant neoplasm of breast (ICD-10) Surgical History History of hysterectomy ?Z90.710 - Acquired absence of both cervix and uterus (ICD-10) S/P total knee arthroplasty ?Z96.659 - Presence of unspecified artificial knee joint (ICD-10) Family History Mother Heart disease Father Alcohol dependence Social History Narrative: She lives alone in a town house in [place]. Her townhouse is on 1 level without stairs and his handicap assessable. Closest family is her son Cruz who lives in [place] and her sister Roberta who lives in [place]. They are both designated healthcare power of consumer attorney. Code status is full code for witnessed arrest. She normally walks without an assistive device. What is your current living situation?: I presently have a place to live Problems where you live: no known problems Problems where you live details: N/A In the past 12 months, utilities in danger of being shut off: no In past 12 months, lack of transportation kept you from medical appts, meetings, work, or getting things needed for daily living: no In the past 12 mos, have been you worried that your food would run out before you had money to buy more?: never true In the past 12 mos, the food you bought just didn't last and you didn't have money to buy more?: never true Highest level of school completed/degree received: Associate degree: occupational, technical, vocational program Smoking Status: Never smoker Do you use any of these nicotine containing products: None How often do you have a drink containing alcohol: 2-3 times a week How many standard drinks containing alcohol do you have on a typical day: 1 or 2 How often do you have six or more drinks on one occasion: Never AUDIT-C Alcohol total score: 3 Non-prescribed substance use: denies use Caffeine: Yes (Coffee) How often does anyone, including family, friends and others, physically hurt you: never How often does anyone, including family, friends and others, insult or talk down to you: never How often does anyone, including family, friends and others, threaten you with harm: never How often does anyone, including family, friends and others, scream or curse at you: never service: No Exam Narrative: Exam Narrative: Alert and oriented. Very detailed in what she experienced tonight and demonstrating to me how her arms were moving. EOM is full pupils are equal round reactive. No nystagmus in the extremes. Raising of the eyebrows symmetrical. During most of our interview she had normal speech but at times when I specifically asked her to stick her tongue out or to smile she would be unable to do so. Symptoms with arm tremors sudden burst of movement were very distractible. Romberg was negative. Finger to nose intact. Finger to finger bilaterally intact. DTRs 1+ at the elbows. Abdomen soft nontender. Lower extremity shows 1+ edema. Patient unable to lift her right leg secondary to recent surgery. Left leg was able to be held for 5 seconds. No unusual movement. Examination of the surgical wounds without evidence of erythema or drainage or abnormality. Const: Vital Signs, click to edit/add: Vital Signs - 24 hr 06/29/25 23:05 06/30/25 02:35 Temperature 97.2 F L 96.9 F L Pulse Rate [Pulse Oximeter] 91 67 Respiratory Rate 20 19 Blood Pressure [Ri ght Upper Arm] 168/72 H 166/76 H Pulse Oximetry 95 97 Oxygen Delivery Me thod Room Air Room Air Documenting provider has reviewed patient's vital signs: yes Course Course ED Course: Differential diagnosis includes but is not limited to acute stroke, seizure, panic attack, conversion subdural hematoma Must also consider arrhythmia, electrolyte balance, urinary tract infection. Noncontrast head CT is ordered at this time. Will then place IV and draw labs to include CBC, comprehensive, urinalysis, point of care troponin, EKG. Reassurance at this time. Reevaluation(s) Reevaluation #1: Head CT without abnormality. No evidence of acute stroke or subdural hematoma. I have asked Dr. Teresa Mooeny for consult. Reevaluation #2: I did speak to patient's son who is very loving and supportive about the reassuring tests and labs tonight. My opinion is that this is most likely significant anxiety as the abnormal movement does not fit any particular medical diagnosis. Consultations Consultation #1: Midnight -spoke with Dr. Mooney in regards to this patient with bilateral hand tremors and occasional stuttering of speech. After seeing patient there does not appear to be neurological explanation and does not appear to be a stroke. A review of her meds does not show reglan or any other related medications. Vital Signs Vital signs: Initial Vital Signs Temperature 97.2 F L 06/29/25 23:05 Temperature Source Temporal Artery Scan 06/29/25 23:05 Pulse Rate 91 06/29/25 23:05 Respiratory Rate 20 06/29/25 23:05 Blood Pressure 168/72 H 06/29/25 23:05 Blood Pressure Mean 104 06/29/25 23:05 Blood Pressure Position Sitting 06/29/25 23:05 Pulse Oximetry 95 06/29/25 23:05 Oxygen Delivery Method Room Air 06/29/25 23:05 Vital Signs Temperature 97.2 F L 06/29/25 23:05 Pulse Rate 91 06/29/25 23:05 Respiratory Rate 20 06/29/25 23:05 Blood Pressure 168/72 H 06/29/25 23:05 Pulse Oximetry 95 06/29/25 23:05 Oxygen Delivery Method Room Air 06/29/25 23:05 Temperature 96.9 F L 06/30/25 02:35 Pulse Rate 67 06/30/25 02:35 Respiratory Rate 19 06/30/25 02:35 Blood Pressure 166/76 H 06/30/25 02:35 Pulse Oximetry 97 06/30/25 02:35 Oxygen Delivery Method Room Air 06/30/25 02:35 Medical Decision Making MDM Narrative Medical decision making narrative: 1. Abnormal arm movement - Head CT and exam reassuring. Distractable symptoms. Labs reassuring along with ECG. No evidence of UTI. Patient has remained stable in the ED. NO symptoms during sleep. Suspect underlying anxiety with possible hyperventilation. Reassurance at this time. 2. Anxiety - significant anxiety surrounding inability to get her questions answered at the senior care. She feels reassured by discussing her questions with a provider and that is not available 29/01. Her son is going to speak with Deb Martin, her provider about increasing points of contact for reassurance. 3. Status post right hip repair - surgical wounds look good. She is not complaining of any pain and has been up and walking today. 4. Hx of anemia - improvement to 9.6 today 4. Disposition- discharge to [facility]. Return as needed Medical Records Medical records reviewed: Yes I reviewed the patient's medical records Lab Data Lab results reviewed: Yes I reviewed the patient's lab results Labs: Lab Results 06/29/25 06/30/25 06/30/25 Range/Units 23:17 01:12 03:03 WBC 7.23 (4.50-11.00) K/uL RBC 3.06 L (4.00-5.20) m/uL Hgb 9.6 L (12.0-16.0) gm/dL Hct 28.9 L (33.0-51.0) % MCV 94 (80-100) fL MCH 31 (26-34) pg MCHC 33 (32-36) gm/dL RDW Coeff of Aimee 14.2 (11.5-15.5) % Plt Count 310 (140-440) K/uL Neut % (Auto) 58.9 (42.0-72.0) % Lymph % (Auto) 28.8 (20-44) % [place] % (Auto) 8.6 (0.0-11.0) % Eos % (Auto) 2.2 (0.0-7.0) % Baso % (Auto) 0.4 (0.0-3.0) % Neut # (Auto) 4.26 (1.7-7.0) K/uL Lymph # (Auto) 2.08 (0.90-2.90) K/uL [place] # (Auto) 0.60 (0.00-0.90) K/UL Eos # (Auto) 0.16 (0.00-0.50) K/uL Baso # (Auto) 0.03 (0.00-0.30) K/uL Abs Immat Gran (auto) 0.08 (0.00-0.30) K/uL Imm/Tot Granulo (auto) 1.1 % Sodium 138 (135-149) mmol/L Potassium 4.1 (3.6-5.1) mmol/L Chloride 107 (96-114) mmol/L Carbon Dioxide 25 (20-32) mmol/L Anion Gap 6 L (7-15) mEq/L BUN 18 (7-30) mg/dL Creatinine 1.0 (0.5-1.5) mg/dL Estimated GFR 56 ml/min Glucose 95 (60-115) mg/dL Calcium 8.2 L (8.4-10.6) mg/dL Total Bilirubin 0.6 (0.1-1.5) mg/dL AST 60 H (12-35) U/L ALT 39 H (4-35) U/L Alkaline Phosphatase 93 (40-150) U/L POC Troponin I High Sensi 12.9 (2.9-13.0) pg/mL Total Protein 6.0 (6.0-8.3) g/dL Albumin 3.4 (3.3-5.0) g/dL Urine Color Yellow (Yellow) Urine Appearance Clear (Clear) Urine pH 6.0 (5.0-8.5) Ur Specific [place] 1.020 (1.000-1.030) Urine Protein 1+ A (Negative) Urine Glucose (UA) Negative (Negative) Urine Ketones Negative (Negative) Urine Blood Negative (Negative) Urine Nitrite Negative (Negative) Urine Bilirubin Negative (Negative) Urine Urobilinogen 0.2 (0.2-1.0) Ur Leukocyte Esterase Negative (Negative) Urine RBC 0-2 (0-2) Urine WBC 0-2 (0-5) Ur Squamous Epith Cells Few (None-Few) Urine Bacteria None (None) Imaging Data CT scan - head: Attestation: I have reviewed the pertinent imaging results. My impression: No evidence of subdural, acute events. Radiologist's impression: CSF spaces: Proportionate prominence of the ventricles and sulci, reflecting mild generalized cerebral volume loss. Brain parenchyma: The hutton-white differentiation is maintained. Patchy white matter low attenuation changes, nonspecific but likely reflecting chronic small vessel ischemic disease. No sign of mass, hemorrhage, or midline shift. Atherosclerotic calcifications of the cavernous carotids and carotid siphons. Skull base and calvarium: The visualized paranasal sinuses and mastoid air cells demonstrate no acute or significant findings. The visualized orbits are grossly unremarkable. Calvarium is intact. IMPRESSION: No acute intracranial abnormality. ECG Data Attestation: I personally reviewed and interpreted this ECG as follows: Interpretation: EKG by my read shows sinus rhythm at a rate of 71 I do not note any acute ST or T-wave changes. QT interval within normal limits. Discharge Plan Discharge Clinical Impression: Abnormal movement, Anxiety Patient Disposition: Home, Self-Care Condition: Improved Additional Instructions: May need to follow-up with your primary MD for ongoing abnormal movement. Recommend relaxation techniques and deep breathing if needed. I am pleased that your head CT was very reassuring with no evidence of stroke or injury from your recent fall. I am very pleased about your urinalysis which showed no evidence of UTI, your white count is normal at 7.23 and her hemoglobin is now up to 9.6. Electrolytes are normal and your kidney function is excellent. You have a very small elevation of your AST and ALT, likely a consequence of everything you have gone through. Recommend rechecking liver function tests in the next week or 2. Prescriptions: No Action cyanocobalamin (vitamin B-12) [Dodex] 1,000 mcg/mL solution 1,000 mcg IM Q28D propranolol 160 mg capsule,extended release 24 hr 160 mg PO BID acetaminophen 650 mg Tablet Extended Release 1,300 mg PO Q8H Qty: 90 0RF primidone 50 mg tablet 100 mg PO TID omeprazole 40 mg capsule,delayed release(DR/EC) 40 mg PO BID glimepiride 1 mg tablet 1 mg PO DAILY metformin 500 mg tablet extended release 24 hr 1,000 mg PO BID rosuvastatin 40 mg tablet 40 mg PO HS nitroglycerin 0.4 mg tablet, sublingual 0.4 mg sublingual Q5M PRN ezetimibe 10 mg tablet 10 mg PO DAILY alendronate [Fosamax] 70 mg tablet 70 mg PO QWEEK Qty: 14 0RF calcium carbonate-vitamin D3 [Calcium 500 + D] 500 mg-10 mcg (400 unit) tablet 1 tab PO BID Qty: 60 0RF sennosides [Senna Lax] 8.6 mg Tablet 17.2 mg PO BID PRN (Reason: constipation) Qty: 100 0RF oxycodone 5 mg Tablet 2.5 - 5 mg PO Q4-6H MDD 6 tabs per day PRN (Reason: Pain) Qty: 42 0RF Rx Instructions: Minimize. Discontinue as soon as possible Xarelto 10 mg tablet 10 mg PO DAILY Qty: 32 0RF Rx Instructions: for 32 days celecoxib 200 mg Capsule 200 mg PO DAILY Qty: 10 0RF Follow Up/Referrals: Deb [facility] [Primary Care Provider, Family Practice] Stand Alone Forms: MyHealth Info Instructions
[2025-06-29 23:36] LABS: Hematocrit* 28.9 % (33.0-51.0); Hemoglobin* 9.6 gm/dL (12.0-16.0); Immature Granulocytes Abs Auto 0.08 K/uL (0.00-0.30); Immature Granulocytes Pct Auto 1.1 %; Lymphocytes Absolute Auto 2.08 K/uL (0.90-2.90); Mean Corpuscular HGB Conc 33 gm/dL (32-36); Mean Corpuscular Hemoglobin 31 pg (26-34); Mean Corpuscular Volume 94 fL (80-100); RDW Coefficient of Variation % 14.2 % (11.5-15.5); Red Blood Count* 3.06 m/uL (4.00-5.20); White Blood Count* 7.23 K/uL (4.50-11.00)
[2025-06-29 23:41] LABS: Slide Review Reflex No
[2025-06-30 00:02] LABS: Albumin* 3.4 g/dL (3.3-5.0); Chloride* 107 mmol/L (96-114); Potassium* 4.1 mmol/L (3.6-5.1); Sodium* 138 mmol/L (135-149)
[2025-06-30 00:05] LABS: Alanine Aminotransferase* 39 U/L (4-35); Alkaline Phosphatase* 93 U/L (40-150); Anion Gap 6 mEq/L (7-15); Aspartate Amino Transferase* 60 U/L (12-35); Bilirubin Total* 0.6 mg/dL (0.1-1.5); Blood Urea Nitrogen* 18 mg/dL (7-30); Carbon Dioxide* 25 mmol/L (20-32); Creatinine* 1.0 mg/dL (0.5-1.5); Estimated Glomerular Filt Rate 56 ml/min; Total Protein* 6.0 g/dL (6.0-8.3)
[2025-06-30 00:06] LABS: Calcium* 8.2 mg/dL (8.4-10.6); Glucose* 95 mg/dL (60-115)
[2025-06-30 01:42] LABS: Appearance Urine Clear (Clear)
[2025-06-30 02:35] VITALS: BP 166/76; PULSE 67; RESP 19; TEMP 36.1; O2SAT 97
== END 2025-06-30 04:02 | disposition home or self-care (01) ==
PROVIDERS: Emergency Provider Family Medicine; PCP Physician Assistant Medical
DX: R25.9 Unspecified abnormal involuntary movements (principal); F41.9 Anxiety disorder, unspecified
CPT/HCPCS: 36415; 70450; 80053; 81001; 84484; 85025; 93005; 99284; 99285; G0426

== ENCOUNTER 2025-06-30 03:53 | Outpatient (CLI) | payer MEDICARE, BC, SELFPAY | END 2025-06-30 03:54 | disposition home or self-care (01) | LOC: AMB 07-05 04:32 | PROVIDERS: PCP Physician Assistant Medical; Visit Provider Family Medicine | DX: R25.9 Unspecified abnormal involuntary movements (principal); R41.9 Unspecified symptoms and signs involving cognitive functions and awareness | CPT/HCPCS: A0425; A0428 ==